=== PATIENT | male | born 1935 | race Caucasian/White ===

== ENCOUNTER → 2017-05-19 16:20 | Outpatient (CLI) | payer MEDICARE, SELFPAY ==
[2017-05-19 18:13] LABS: CPK Total, Creatine Kinase 134 U/L (39-308)
[2017-05-21 10:00] LABS: Myoglobin, Serum 59 ng/mL (28-72)
== END ==
PROVIDERS: Family Provider Family Medicine Geriatric Medicine; PCP Family Medicine Geriatric Medicine; Visit Provider Family Medicine Geriatric Medicine
DX: R07.9 Chest pain, unspecified (principal)
CPT/HCPCS: 36415; 82550; 83874; 84484

== ENCOUNTER → 2017-05-25 10:06 | Outpatient (CLI) | payer MEDICARE, SELFPAY ==
[2017-05-25 11:24] LABS: Absolute Neutrophil Count 3.4 X10^3/uL (2.0-7.7); Basophil# 0.08 X10^3/uL; Basophil% 1.5 % (0-1); Eosinophil# 0.14 X10^3/uL; Eosinophils% 2.7 % (0-5); Hematocrit 37.6 % (40-54); Hemoglobin 13.1 g/dl (13.0-16.5); Lymphocyte % 21.1 % (19-41); Mean Corp Hgb Conc 34.8 g/gl (32-36); Mean Corpuscular Hgb 32.4 pg (27.0-32.0); Mean Corpuscular Volume 93.1 fL (80-94); Mean Platelet Vol. 11.6 fl (6.2-12.0); Monocyte# 0.47 X10^3/uL; Neutrophil # 3.43 X10^3/uL (2.7-7.7); Neutrophil % 65.7 % (47-70); Platelet Count 172 K/mm3 (150-450); RBC Distribution Width CV 13.6 % (11.6-14.6); RBC Distribution Width SD 45.6 fl (35.1-43.9); Red Blood Count 4.04 M/mm3 (4.6-6.2); White Blood Count 5.2 K/mm3 (4.4-11.0)
[2017-05-25 11:37] LABS: POSITIVE COUNT NO; POSITIVE DIFFERENTIAL NO; POSITIVE MORPHOLOGY NO
[2017-05-25 11:48] LABS: Vitamin D,25 Hydroxy 22.7 ng/mL (19.95-100.01)
[2017-05-25 11:55] LABS: AST(SGOT) 42 U/L (15-37); Alanine Aminotransfer ALT/SGPT 42 U/L (16-61); Albumin, Serum 3.1 g/dL (3.2-5.0); Alkaline Phosphatase 111 U/L (45-117); Anion Gap 5 (5-15); BUN 11 mg/dL (7-18); BUN/Creat Ratio 9.7 RATIO (10-20); Calcium,Total 8.1 mg/dL (8.5-10.1); Chloride 110 mmol/L (98-107); Creatinine, Serum 1.13 mg/dL (0.70-1.30); EST Glomerular Filtration Rate 66 mL/min (>60); Est Glom Filt Rate - Afr Amer 80 mL/min (>60); Globulin 3.1 g/dL (2.2-4.2); Glucose 89 mg/dL (74-106); Potassium 3.6 mmol/L (3.5-5.1); Protein, Total 6.2 g/dL (6.4-8.2); Sodium Level 146 mmol/L (136-145); Thyroid Stim Hormone (TSH) 1.98 uIU/mL (0.358-3.74)
== END ==
PROVIDERS: Family Provider Family Medicine Geriatric Medicine; PCP Family Medicine Geriatric Medicine; Visit Provider Family Medicine Geriatric Medicine
DX: E55.9 Vitamin D deficiency, unspecified (principal); I10 Essential (primary) hypertension
CPT/HCPCS: 36415; 80053; 82306; 84443; 85025

== ENCOUNTER → 2017-06-19 09:22 | Outpatient (CLI) | payer MEDICARE, SELFPAY ==
[2017-06-19 12:13] LABS: Anion Gap 5 (5-15); BUN 12 mg/dL (7-18); Calcium,Total 7.8 mg/dL (8.5-10.1); Chloride 106 mmol/L (98-107); EST Glomerular Filtration Rate 62 mL/min (>60); Est Glom Filt Rate - Afr Amer 75 mL/min (>60); Glucose 91 mg/dL (74-106); Potassium 3.2 mmol/L (3.5-5.1); Sodium Level 145 mmol/L (136-145)
== END ==
PROVIDERS: Family Provider Family Medicine Geriatric Medicine; PCP Family Medicine Geriatric Medicine; Visit Provider Family Medicine Geriatric Medicine
DX: R60.9 Edema, unspecified (principal)
CPT/HCPCS: 36415; 80048

== ENCOUNTER → 2017-10-16 09:50 | Outpatient (CLI) | payer MEDICARE, SELFPAY ==
[2017-10-16 12:24] LABS: Absolute Lymphocyte Count 1.09 X10^3/ul (0.83-4.51); Basophil# 0.04 X10^3/uL; Basophil% 0.8 % (0-1); Eosinophil# 0.17 X10^3/uL; Eosinophils% 3.5 % (0-5); Hematocrit 38.5 % (40-54); Hemoglobin 12.7 g/dl (13.0-16.5); Lymphocyte # 1.09 X10^3/ul (4.0); Lymphocyte % 22.7 % (19-41); Mean Corpuscular Hgb 30.7 pg (27.0-32.0); Mean Platelet Vol. 11.4 fl (6.2-12.0); Monocyte# 0.49 X10^3/uL; Monocyte% 10.2 % (0-10); Neutrophil # 3.02 X10^3/uL (2.7-7.7); Neutrophil % 62.8 % (47-70); Platelet Count 177 K/mm3 (150-450); RBC Distribution Width CV 13.4 % (11.6-14.6); RBC Distribution Width SD 45.4 fl (35.1-43.9); Red Blood Count 4.14 M/mm3 (4.6-6.2); White Blood Count 4.8 K/mm3 (4.4-11.0)
[2017-10-16 12:38] LABS: POSITIVE COUNT NO; POSITIVE DIFFERENTIAL NO; POSITIVE MORPHOLOGY NO
[2017-10-16 12:55] LABS: Anion Gap 9 (5-15); BUN 13 mg/dL (7-18); BUN/Creat Ratio 9.8 RATIO (10-20); Calcium,Total 8.8 mg/dL (8.5-10.1); Chloride 105 mmol/L (98-107); Creatinine, Serum 1.33 mg/dL (0.70-1.30); EST Glomerular Filtration Rate 55 mL/min (>60); Est Glom Filt Rate - Afr Amer 67 mL/min (>60); Glucose 90 mg/dL (74-106); Potassium 3.8 mmol/L (3.5-5.1); Sodium Level 144 mmol/L (136-145)
[2017-10-16 12:57] LABS: BNP,B-Type NATRIURETIC PEPTIDE 163.4 pg/mL (0-100)
== END ==
PROVIDERS: Family Provider Family Medicine Geriatric Medicine; PCP Family Medicine Geriatric Medicine; Visit Provider Family Medicine Geriatric Medicine
DX: R06.02 Shortness of breath (principal)
CPT/HCPCS: 36415; 80048; 83880; 85025

== ENCOUNTER 2017-10-21 13:35 | Emergency (ER) | payer MEDICARE, SELFPAY ==
[2017-10-21 13:35] VITALS: BP 144/98; BP 163/116; PULSE 68; RESP 16; RESP 18; TEMP 36.8; O2SAT 96; O2SAT 98; BMI 23.2
--- NOTE | 2017-10-21 14:01 | EKG12_ITS ---
Test Reason : CP Blood Pressure : / mmHG Vent. Rate : 076 BPM Atrial Rate : 076 BPM P-R Int : 100 ms QRS Dur : 100 ms QT Int : 408 ms P-R-T Axes : -20 000 038 degrees QTc Int : 459 ms Sinus rhythm with short MN with Premature atrial complexes Otherwise normal ECG Confirmed by BOBO PALACIOS, TRISHA ([id number]), television news video editor SALLY OMALLEY ([id number]) on 10/23/2017 1:41:09 PM Referred By: FRANKO/LAMONT Confirmed By:TRISHA BROUSSARD MD
[2017-10-21 14:11] LABS: Absolute Lymphocyte Count 1.18 X10^3/ul (0.83-4.51); Absolute Neutrophil Count 4.2 X10^3/uL (2.0-7.7); Basophil# 0.03 X10^3/uL; Basophil% 0.5 % (0-1); Eosinophil# 0.07 X10^3/uL; Eosinophils% 1.2 % (0-5); Hematocrit 40.8 % (40-54); Hemoglobin 14.1 g/dl (13.0-16.5); Lymphocyte # 1.18 X10^3/ul (4.0); Lymphocyte % 19.6 % (19-41); Mean Corp Hgb Conc 34.6 g/gl (32-36); Mean Corpuscular Hgb 31.5 pg (27.0-32.0); Mean Corpuscular Volume 91.3 fL (80-94); Mean Platelet Vol. 11.1 fl (6.2-12.0); Monocyte# 0.49 X10^3/uL; Monocyte% 8.1 % (0-10); Neutrophil # 4.24 X10^3/uL (2.7-7.7); Neutrophil % 70.4 % (47-70); Platelet Count 185 K/mm3 (150-450); RBC Distribution Width CV 13.1 % (11.6-14.6); RBC Distribution Width SD 43.6 fl (35.1-43.9); Red Blood Count 4.47 M/mm3 (4.6-6.2)
--- NOTE | 2017-10-21 14:12 | RAD_ITS ---
STUDY: X-RAY CHEST REASON FOR EXAM: Male, 81 years old. Chest pain. TECHNIQUE: PA and lateral views of the chest. COMPARISON: Comparison is made with prior study dated April 10, 2014. FINDINGS: EKG electrodes are seen. Stable increased linear markings in the right midlung as well as in the lateral aspect of the right hemithorax suggestive of scarring. Stable mild scarring at the left lung base as well. Stable calcified granuloma in the left midlung. There is no demonstrated pleural abnormality. Normal size heart. Normal mediastinum and lona. Normal visualized pulmonary arteries. There is atherosclerotic calcification of the aortic arch with tortuosity. There are diffuse degenerative changes of the visualized thoracic spine. Normal visualized ribs, clavicles, and shoulders. A filter is seen within the inferior vena cava. RAD/Chest PA and Lateral IMPRESSION: Stable examination. Electronically Signed: Roman Joiner MD at 15:17 EDT Tel [phone], Service support ,
[2017-10-21 14:15] LABS: POSITIVE COUNT NO; POSITIVE DIFFERENTIAL NO; POSITIVE MORPHOLOGY NO
[2017-10-21 14:30] LABS: ALB/GLOB Ratio 1.1 RATIO (0.9-2.4); AST(SGOT) 29 U/L (15-37); Alanine Aminotransfer ALT/SGPT 26 U/L (16-61); Albumin, Serum 3.6 g/dL (3.2-5.0); Alkaline Phosphatase 140 U/L (45-117); Anion Gap 7 (5-15); BUN 14 mg/dL (7-18); BUN/Creat Ratio 8.9 RATIO (10-20); Calcium,Total 8.6 mg/dL (8.5-10.1); Chloride 102 mmol/L (98-107); Creatinine, Serum 1.57 mg/dL (0.70-1.30); EST Glomerular Filtration Rate 45 mL/min (>60); Est Glom Filt Rate - Afr Amer 55 mL/min (>60); Estimated Creatinine Clearance 38.15 ml/min; Globulin 3.3 g/dL (2.2-4.2); Glucose 116 mg/dL (74-106); Lipase 83 U/L (73-393); Potassium 3.2 mmol/L (3.5-5.1); Protein, Total 6.9 g/dL (6.4-8.2); Sodium Level 140 mmol/L (136-145)
[2017-10-21 14:43] VITALS: BP 156/109; PULSE 68; RESP 14; O2SAT 98
[2017-10-21 15:14] VITALS: BP 163/106; PULSE 53; RESP 15; O2SAT 97
--- NOTE | 2017-10-21 15:42 | ED.DCSUM_ITS ---
- ER Visit Summary Date of Service: 10/21/17 Chief Complaint: Chest pain History of Present Illness: The patient is a 81 M who states that yesterday afternoon he went to take a potassium chloride tablet while swallowing it developed a pressure in his chest. It has been constant since that time. He has not had drooling or difficulty swallowing. He describes it as a pressure. He states he had the same symptoms 1 month ago when he tried to swallow another potassium chloride tablet. He is to be taking potassium chloride as he has been placed on a diuretic. States he has a history of a hiatal hernia surgery that went bad resulting in significantly prolonged hospitalization and rehabilitation stay and surgical complications. I see that in the past he has had esophageal impactions. He has a history of hypertension high cholesterol. He does not take a daily aspirin. He is not a smoker. He does not have known coronary artery disease. Physical Examination: Afebrile vital signs are stable Gen: Well-nourished well-developed Head: Normocephalic atraumatic Eyes: Perrl EOMI ENT: TMs clear no rhinorrhea moist mucous membranes Neck: Supple no lymphadenopathy no JVD nontender CVS: Regular rate rhythm no murmurs normal S1-S2 Respiratory: No distress clear to auscultation bilaterally chest nontender Abdomen: Soft nontender nondistended normal bowel sounds no masses Back: Nontender Extremity: Nontender no edema skin tear left elbow Skin: Normal color no rash Neuro: alert orientated ?3 CN II-XII intact normal strength sensation reflexes gait cerebellar Psych: Normal affect normal mood Test Results: EKG shows a sinus rhythm with PAC at a rate of 76. Potassium 3.2. CBC normal. Troponin less than 0.015. Chest x-ray is negative. Emergency Department Course and Treatment: Patient's ROSALIA score is 1 for age greater than 65. Patient has had just short of 24 hours of constant discomfort with a negative EKG and negative troponin. Patient received a GI cocktail. The patient has had numerous evaluations in the past for esophageal impactions and esophageal strictures. Given that this came at time when he was attempting to swallow a large potassium chloride pill and happened 1 month ago under similar circumstances I believe this episode of chest pain not to be cardiac but rather esophageal in nature. I will switch him from the pills to the powdered form of potassium and encouraged him to follow-up with gastroenterology as he may need to have a dilatation again. Impression: 1. Chest pain 2. Hypokalemia This note was generated with [employer] dictation software. 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
[2017-10-21 16:02] VITALS: BP 152/100; PULSE 57; RESP 16; O2SAT 97
== END 2017-10-21 16:02 | disposition home or self-care (01) ==
PROVIDERS: Emergency Provider Emergency Medicine; Family Provider Family Medicine Geriatric Medicine; PCP Family Medicine Geriatric Medicine
DX: R07.89 Other chest pain (principal); E87.6 Hypokalemia; I49.1 Atrial premature depolarization; K21.9 Gastro-esophageal reflux disease without esophagitis; I10 Essential (primary) hypertension; E78.00 Pure hypercholesterolemia, unspecified; Z79.899 Other long term (current) drug therapy
CPT/HCPCS: 71046; 80053; 83690; 84484; 85025; 93005; 99285; A4216

== ENCOUNTER → 2017-10-29 11:48 | Outpatient (CLI) | payer MEDICARE, SELFPAY ==
[2017-10-29 12:49] LABS: Anion Gap 10 (5-15); BUN 36 mg/dL (7-18); BUN/Creat Ratio 15.8 RATIO (10-20); Calcium,Total 8.5 mg/dL (8.5-10.1); Chloride 107 mmol/L (98-107); Creatinine, Serum 2.28 mg/dL (0.70-1.30); EST Glomerular Filtration Rate 30 mL/min (>60); Est Glom Filt Rate - Afr Amer 36 mL/min (>60); Glucose 92 mg/dL (74-106); Potassium 3.9 mmol/L (3.5-5.1); Sodium Level 143 mmol/L (136-145)
== END ==
PROVIDERS: Family Provider Family Medicine Geriatric Medicine; PCP Family Medicine Geriatric Medicine; Visit Provider Family Medicine Geriatric Medicine
DX: E87.6 Hypokalemia (principal)
CPT/HCPCS: 36415; 80048

== ENCOUNTER → 2017-10-29 13:41 | Outpatient (CLI) | payer MEDICARE, SELFPAY ==
--- NOTE | 2017-10-29 13:49 | ECHOD_ITS ---
Reason For Study: SOB Procedure This was a 2D Doppler, Color Flow transthoracic echocardiogram. The study was technically difficult. Exam performed in department. Left Ventricle Normal LV size. Sigmoid septum. Left ventricular systolic function is normal. The estimated ejection fraction is 55 %. Diastolic function: considered indeterminate. No regional wall motion abnormalities noted. Right Ventricle Normal RV size. Normal systolic function. Atria The left atrium is mildly enlarged. Normal right atrium. No doppler evidence for ASD. Mitral Valve There is no mitral annular calcification. Normal mitral valve. Trivial mitral valve insufficiency. Tricuspid Valve Normal tricuspid valve. Trivial tricuspid valve insufficiency. Right ventricular systolic pressure estimated to be 24 mmHg. Aortic Valve Trisinus/trileaflet aortic valve. Mild focal aortic valve calcification. Trivial aortic valve insufficiency. Pulmonic Valve The pulmonic valve is not well visualized. Trivial pulmonic valve insufficiency. Great Vessels Normal sized aortic root. Pericardium/Pleural No pericardial effusion. MMode/2D Measurements & Calculations LVIDd: 4.6 cm IVSd: 1.3 cm Ao root diam: 3.4 cm LVIDs: 3.0 cm LVPWd: 1.00 cm LA dimension: 4.5 cm RVDd: 2.5 cm FS: 34.3 % LAV(MOD-bp): 58.6 ml EDV(MOD-sp4): 67.8 ml EDV(MOD-sp2): 52.1 ml LAV(MOD-bp) Indexed: 31.0 ml/m2 ESV(MOD-sp4): 34.0 ml EF(MOD-sp2): 43.4 % LAV(MOD-sp2): 59.4 ml EF(MOD-sp4): 49.9 % LAV(MOD-sp4): 54.7 ml SV(MOD-sp4): 33.8 ml SV(MOD-sp2): 22.6 ml LA A4 area: 20.0 cm2 RA A4 area: 14.3 cm2 Doppler Measurements & Calculations MV E max reji: 44.9 cm/sec Lat Peak E' Reji: 10.5 cm/sec Med Peak E' Reji: 3.6 cm/sec MV A max reji: 68.9 cm/sec E/E' lat: 4.3 E/E' med: 12.4 MV E/A: 0.65 Ao V2 max: 138.1 cm/sec LV V1 max: 81.2 cm/sec PA V2 max: 86.5 cm/sec Ao max P.6 mmHg LV V1 max P.6 mmHg PI end-d reji: 121.6 cm/sec TR max reji: 226.3 cm/sec TR max P.6 mmHg Interpretation Summary The study was technically difficult. Left ventricular systolic function is normal. The estimated ejection fraction is 55 %. Sigmoid septum. The left atrium is mildly enlarged. Trivial mitral valve insufficiency. Trivial tricuspid valve insufficiency. Mild focal aortic valve calcification. Trivial aortic valve insufficiency. Trivial pulmonic valve insufficiency. Right ventricular systolic pressure estimated to be 24 mmHg. Diastolic function: considered indeterminate. Ordering Physician: Kieran Gary Referring Physician: Kieran Gary Chi Performed By: Silvia Chavarria, OMER, RVT
== END ==
PROVIDERS: Family Provider Family Medicine Geriatric Medicine; PCP Family Medicine Geriatric Medicine; Visit Provider Family Medicine Geriatric Medicine
DX: R06.02 Shortness of breath (principal); E87.6 Hypokalemia
CPT/HCPCS: 36415; 80048; 93306

== ENCOUNTER → 2017-11-23 10:29 | Outpatient (CLI) | payer MEDICARE, SELFPAY ==
[2017-11-23 12:02] LABS: Absolute Lymphocyte Count 1.26 X10^3/ul (0.83-4.51); Absolute Neutrophil Count 5.8 X10^3/uL (2.0-7.7); Basophil# 0.04 X10^3/uL; Basophil% 0.5 % (0-1); Eosinophil# 0.24 X10^3/uL; Hematocrit 36.3 % (40-54); Hemoglobin 12.3 g/dl (13.0-16.5); Lymphocyte # 1.26 X10^3/ul (4.0); Lymphocyte % 15.7 % (19-41); Mean Corp Hgb Conc 33.9 g/gl (32-36); Mean Corpuscular Hgb 31.1 pg (27.0-32.0); Mean Corpuscular Volume 91.9 fL (80-94); Mean Platelet Vol. 11.8 fl (6.2-12.0); Monocyte# 0.67 X10^3/uL; Monocyte% 8.4 % (0-10); Neutrophil # 5.79 X10^3/uL (2.7-7.7); Neutrophil % 72.3 % (47-70); Platelet Count 179 K/mm3 (150-450); RBC Distribution Width CV 13.8 % (11.6-14.6); RBC Distribution Width SD 45.4 fl (35.1-43.9); Red Blood Count 3.95 M/mm3 (4.6-6.2)
[2017-11-23 12:20] LABS: POSITIVE COUNT NO; POSITIVE DIFFERENTIAL NO; POSITIVE MORPHOLOGY NO
[2017-11-23 12:21] LABS: Vitamin D,25 Hydroxy 28.9 ng/mL (29.95-100.01)
[2017-11-23 12:32] LABS: AST(SGOT) 30 U/L (15-37); Alanine Aminotransfer ALT/SGPT 30 U/L (16-61); Albumin, Serum 3.3 g/dL (3.2-5.0); Alkaline Phosphatase 109 U/L (45-117); Anion Gap 11 (5-15); BUN 30 mg/dL (7-18); BUN/Creat Ratio 10.7 RATIO (10-20); Calcium,Total 8.3 mg/dL (8.5-10.1); Chloride 114 mmol/L (98-107); EST Glomerular Filtration Rate 23 mL/min (>60); Est Glom Filt Rate - Afr Amer 28 mL/min (>60); Globulin 3.2 g/dL (2.2-4.2); Glucose 81 mg/dL (74-106); Potassium 3.6 mmol/L (3.5-5.1); Protein, Total 6.5 g/dL (6.4-8.2); Sodium Level 147 mmol/L (136-145); Thyroid Stim Hormone (TSH) 2.54 uIU/mL (0.358-3.74)
== END ==
PROVIDERS: Family Provider Family Medicine Geriatric Medicine; PCP Family Medicine Geriatric Medicine; Visit Provider Family Medicine Geriatric Medicine
DX: E55.9 Vitamin D deficiency, unspecified (principal); I10 Essential (primary) hypertension
CPT/HCPCS: 36415; 80053; 82306; 84443; 85025

== ENCOUNTER → 2017-11-26 10:41 | Outpatient (CLI) | payer MEDICARE, SELFPAY ==
[2017-11-26 13:21] LABS: Protein, Urine (Random) 45.2 mg/dL (<11.9); Protein:Creat Ratio 335 mg/g CRE (0-200)
== END ==
PROVIDERS: Family Provider Family Medicine Geriatric Medicine; PCP Family Medicine Geriatric Medicine; Visit Provider Family Medicine Geriatric Medicine
DX: N17.9 Acute kidney failure, unspecified (principal)
CPT/HCPCS: 82570; 84156

== ENCOUNTER → 2017-11-30 11:32 | Outpatient (CLI) | payer MEDICARE, SELFPAY ==
[2017-11-30 12:59] LABS: Albumin, Serum 3.3 g/dL (3.2-5.0); BUN 29 mg/dL (7-18); BUN/Creat Ratio 10.2 RATIO (10-20); Calcium,Total 8.4 mg/dL (8.5-10.1); Chloride 111 mmol/L (98-107); Creatinine, Serum 2.84 mg/dL (0.70-1.30); EST Glomerular Filtration Rate 23 mL/min (>60); Est Glom Filt Rate - Afr Amer 28 mL/min (>60); Glucose 106 mg/dL (74-106); Phosphorus 3.5 mg/dL (2.5-4.9); Potassium 3.5 mmol/L (3.5-5.1); Sodium Level 147 mmol/L (136-145)
[2017-11-30 13:05] LABS: PTHIN 63.6 pg/mL (18.4-80.1)
== END ==
PROVIDERS: Family Provider Family Medicine Geriatric Medicine; PCP Family Medicine Geriatric Medicine; Visit Provider Internal Medicine Nephrology
DX: N18.3 Chronic kidney disease, stage 3 (moderate) (principal); N17.9 Acute kidney failure, unspecified
CPT/HCPCS: 36415; 76770; 80069; 83970

== ENCOUNTER → 2018-01-04 13:56 | Outpatient (CLI) | payer MEDICARE, SELFPAY ==
[2018-01-04 15:25] LABS: Albumin, Serum 3.2 g/dL (3.2-5.0); BUN 44 mg/dL (7-18); BUN/Creat Ratio 12.4 RATIO (10-20); Calcium,Total 7.9 mg/dL (8.5-10.1); Chloride 105 mmol/L (98-107); Creatinine, Serum 3.56 mg/dL (0.70-1.30); EST Glomerular Filtration Rate 18 mL/min (>60); Est Glom Filt Rate - Afr Amer 21 mL/min (>60); Glucose 116 mg/dL (74-106); Phosphorus 3.1 mg/dL (2.5-4.9); Potassium 3.4 mmol/L (3.5-5.1); Sodium Level 141 mmol/L (136-145)
[2018-01-04 15:31] LABS: PTHIN 126.2 pg/mL (18.4-80.1)
== END ==
PROVIDERS: Family Provider Family Medicine Geriatric Medicine; PCP Family Medicine Geriatric Medicine; Referring Provider Internal Medicine Nephrology; Visit Provider Internal Medicine Nephrology
DX: N18.3 Chronic kidney disease, stage 3 (moderate) (principal)
CPT/HCPCS: 36415; 80069; 83970

== ENCOUNTER → 2018-01-20 11:11 | Outpatient (CLI) | payer MEDICARE, SELFPAY ==
[2018-01-20 12:11] LABS: Albumin, Serum 3.4 g/dL (3.2-5.0); BUN 27 mg/dL (7-18); BUN/Creat Ratio 11.2 RATIO (10-20); Calcium,Total 8.5 mg/dL (8.5-10.1); Chloride 111 mmol/L (98-107); Creatinine, Serum 2.42 mg/dL (0.70-1.30); EST Glomerular Filtration Rate 28 mL/min (>60); Est Glom Filt Rate - Afr Amer 33 mL/min (>60); Glucose 176 mg/dL (74-106); Phosphorus 3.5 mg/dL (2.5-4.9); Potassium 4.4 mmol/L (3.5-5.1); Sodium Level 141 mmol/L (136-145)
[2018-01-20 12:19] LABS: PTHIN 56.5 pg/mL (18.4-80.1)
== END ==
PROVIDERS: Family Provider Family Medicine Geriatric Medicine; PCP Family Medicine Geriatric Medicine; Referring Provider Internal Medicine Nephrology; Visit Provider Internal Medicine Nephrology
DX: N18.3 Chronic kidney disease, stage 3 (moderate) (principal)
CPT/HCPCS: 36415; 80069; 83970

== ENCOUNTER → 2018-03-01 13:26 | Outpatient (CLI) | payer MEDICARE, SELFPAY ==
[2018-03-01 16:35] LABS: Albumin, Serum 3.2 g/dL (3.2-5.0); BUN 32 mg/dL (7-18); Calcium,Total 8.3 mg/dL (8.5-10.1); Chloride 108 mmol/L (98-107); Creatinine, Serum 2.46 mg/dL (0.70-1.30); EST Glomerular Filtration Rate 27 mL/min (>60); Est Glom Filt Rate - Afr Amer 33 mL/min (>60); Glucose 83 mg/dL (74-106); Phosphorus 3.4 mg/dL (2.5-4.9); Potassium 3.8 mmol/L (3.5-5.1); Sodium Level 143 mmol/L (136-145)
== END ==
PROVIDERS: Family Provider Family Medicine Geriatric Medicine; PCP Family Medicine Geriatric Medicine; Referring Provider Internal Medicine Nephrology; Visit Provider Internal Medicine Nephrology
DX: N17.9 Acute kidney failure, unspecified (principal)
CPT/HCPCS: 36415; 80069

== ENCOUNTER → 2018-03-24 12:11 | Outpatient (CLI) | payer MEDICARE, SELFPAY ==
--- OUTSIDE RECORDS SUMMARY | 2018-06-25 17:27 | XMS RPT_ITS ---
:1935 Author Organization OHIP Support Name Relationship Address Phone R Unavailable Unavailable Unavailable YOUNGER, IRIS Unavailable [address] + [place] [address] R Unavailable Unavailable Unavailable YOUNGER, IRIS Unavailable [address] + [place] [address] R Unavailable Unavailable Unavailable YOUNGER, IRIS Unavailable [address] + [place] [address] R Unavailable Unavailable Unavailable YOUNGER, IRIS Unavailable [address] + [place] [address] R Unavailable Unavailable Unavailable YOUNGER, IRIS Unavailable [address] + [place] [address] R Unavailable Unavailable Unavailable YOUNGER, IRIS Unavailable [address] + [place] [address] R Unavailable Unavailable Unavailable YOUNGER, IRIS Unavailable [address] + [place] [address] R Unavailable Unavailable Unavailable YOUNGER, IRIS Unavailable [address] + [place] [address] R Unavailable Unavailable Unavailable YOUNGER, IRIS Unavailable [address] + [place] [address] R Unavailable Unavailable Unavailable YOUNGER, IRIS Unavailable [address] + [place] [address] R Unavailable Unavailable Unavailable YOUNGER, IRIS Unavailable [address] + [place] [address] R Unavailable Unavailable Unavailable YOUNGER, IRIS Unavailable [address] + [place] [address] R Unavailable Unavailable Unavailable YOUNGER, IRIS Unavailable [address] + [place] [address] R Unavailable Unavailable Unavailable YOUNGER, IRIS Unavailable [address] + [place] [address] R Unavailable Unavailable Unavailable YOUNGER, IRIS Unavailable [address] + [place] [address] R Unavailable Unavailable Unavailable YOUNGER, IRIS Unavailable [address] + [place] [address] R Unavailable Unavailable Unavailable YOUNGER, IRIS Unavailable [address] + [place] [address] R Unavailable Unavailable Unavailable YOUNGER, IRIS Unavailable [address] + [place] [address] Care Team Providers Name Role Phone PATRIC, PHILIPPE Monge Attending Unavailable SHINE DURAN Referring Unavailable Abdirahman, Kieran Chi Attending Unavailable Abdirahman, Kieran Chi Referring Unavailable Abdirahman, Kieran Chi Primary Care Unavailable Abdirahman, Kieran Chi Attending Unavailable Abdirahman, Kieran Chi Referring Unavailable Abdirahman, Kieran Chi Primary Care Unavailable Abdirahman, Kieran Chi Attending Unavailable Abdirahman, Kieran Chi Primary Care Unavailable Abdirahman, Kieran Chi Attending Unavailable Abdirahman, Kieran Chi Referring Unavailable Abdirahman, Kieran Chi Primary Care Unavailable Abdirahman, Kieran Chi Attending Unavailable Abdirahman, Kieran Chi Primary Care Unavailable Abdirahman, Kieran Chi Attending Unavailable Abdirahman, Kieran Chi Primary Care Unavailable Abdirahman, Kieran Chi Attending Unavailable Abdirahman, Kieran Chi Primary Care Unavailable Abdirahman, Kieran Chi Attending Unavailable Abdirahman, Kieran Chi Primary Care Unavailable Abdirahman, Kieran Chi Primary Care Unavailable Adolph Armas Attending Unavailable Abdirahman, Kieran Chi Attending Unavailable Abdirahman, Kieran Chi Referring Unavailable Abdirahman, Kieran Chi Primary Care Unavailable Abdirahman, Kieran Chi Attending Unavailable Abdirahman, Kieran Chi Primary Care Unavailable Abdirahman, Kieran Chi Attending Unavailable Abdirahman, Kieran Chi Primary Care Unavailable Guido, Karlee Attending Unavailable Guido, Karlee Referring Unavailable Abdirahman, Kieran Chi Primary Care Unavailable Guido, Karlee Attending Unavailable Abdirahman, Kieran Chi Primary Care Unavailable Sandoval Pleitez Attending Unavailable Guido, Karlee Attending Unavailable Abdirahman, Kieran Chi Primary Care Unavailable Guido, Karlee Referring Unavailable Guido, Karlee Attending Unavailable Abdirahman, Kieran Chi Primary Care Unavailable Guido, Karlee Referring Unavailable Guido, Karlee Attending Unavailable Abdirahman, Kieran Chi Primary Care Unavailable Guido, Karlee Referring Unavailable PROBLEMS PROBLEMS DATE TYPE CONDITION / CODE ATTENDING STATUS SOURCE 03/24/2018 Unknown R68.83 - Chills Abdirahman, Kieran Chi Active [facility] (without fever) / Community R68.83(ICD-10) Hospital Repository 01/20/2018 Unknown N18.3 - Chronic Karlee Lora Active [facility] kidney disease, Community stage 3 Hospital (moderate) / Repository N18.3(ICD-10) 11/30/2017 Unknown N17.9 - Acute Karlee Lora Active [place] kidney failure, Community unspecified / Hospital N17.9(ICD-10) Repository 11/27/2017 Unknown R06.02 - MoodispaSandoval villagran Active [facility] Shortness of Community breath / Hospital R06.02(ICD-10) Repository 08/13/2017 Active Esophageal PATRIC, 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 / [facility] K22.2(ICD-10) Repository 06/19/2017 Unknown R60.9 - Edema, Abdirahman, Kieran Chi Active [facility] unspecified / Community R60.9(ICD-10) Hospital Repository 05/25/2017 Unknown E55.9 - Vitamin D Abdirahman, Kieran Chi Active [place] deficiency, Community unspecified / Hospital E55.9(ICD-10) Repository 05/20/2017 Unknown R07.9 - Chest Abdirahman, Kieran Chi Active [place] pain, unspecified Community / R07.9(ICD-10) Hospital Repository PROCEDURES PROCEDURES No Procedure Records FoundRESULTS RESULTS Observed: 04/20/2018 Status: F Source: [facility] RESPIRATORY PANEL 2:45 PM [facility] MOLECULAR REPOSITORY RP PANEL ADENOVIRUS Not Detected HUMAN METAPHNEUMO Not Detected INFLUENZA A Not Detected INFLUENZA A (SUBTYPE H1) Not Detected INFLUENZA A (SUBTYPE H3) Not Detected INFLUENZA B Not Detected PARAINFLUENZA 1 Not Detected PARAINFLUENZA 2 Not Detected PARAINFLUENZA 3 Not Detected PARAINFLUENZA 4 Not Detected RHINOVIRUS Not Detected RSV A Not Detected RSV B Not Detected NAAT METHOD Testing was performed using nucleic acid amplification Performed By: #### M100.638 #### [facility] [place], [address] Observed: 03/24/2018 Status: F Source: [facility] RESPIRATORY PANEL 12:21 PM [facility] REPOSITORY RP PANEL Normal Reference Range = Not Detected RESULTS CALLED TO DR FERNANDES NURSE LINE 03/24/18 8737 Silvia Gamez. Copy of report sent to Infection Control Printer MS#[id number] 03/24/18 3869 BLUCAS. 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 [place], [place], [address] RENAL PROFILE Collected: 03/01/2018 Status: F Source: [facility] 1:32 PM [facility] REPOSITORY TYPE CODE TESTS RESULT OUT OF RANGE REFERENCE UNITS LAB L501.0100 74-106 mg/dL Normal GLU 83 Result Comment: Please note revised GLUCOSE reference range effective 2017. LAB L501.1000 7-18 mg/dL High BUN 32 LAB L501.1100 0.70-1.30 mg/dL High CREAT,SERUM 2.46 Result Comment: The validity of the calculated GFR AND GFRAA in patients over 70 years has not been determined. Clinical correlation is essential. LAB L501.1110 >60 mL/min Low EST GFR 27 Result Comment: Non- GFR Calc LAB L501.1115 >60 mL/min Low EST GFR - AA 33 Result Comment: GFR Calc LAB L501.1300 10-20 RATIO Normal BUN/CRE 13.0 LAB L501.1800 3.2-5.0 g/dL Normal ALB 3.2 LAB L501.2200 8.5-10.1 mg/dL Low CA 8.3 LAB L501.2300 2.5-4.9 mg/dL Normal PHOS 3.4 LAB L501.5300 136-145 mmol/L NA Normal 143 LAB L501.5600 3.5-5.1 mmol/L K Normal 3.8 LAB L501.5900 98-107 mmol/L High CL 108 LAB L501.6100 21.0-32.0 mmol/L Normal CO2 24.0 Performed By: #### L500.3600 #### [facility] [address] [place], [place], [address] RENAL PROFILE Collected: 01/20/2018 Status: F Source: [place] 11:16 AM [facility] REPOSITORY TYPE CODE TESTS RESULT OUT OF RANGE REFERENCE UNITS LAB L501.0100 74-106 mg/dL High GLU 176 Result Comment: Fasting Glucose result greater than or equal to 126 mg/dL suggests DIABETES MELLITUS per A.D.A. criteria. Please note revised GLUCOSE reference range effective 2017. LAB L501.1000 7-18 mg/dL High BUN 27 LAB L501.1100 0.70-1.30 mg/dL High CREAT,SERUM 2.42 Result Comment: The validity of the calculated GFR AND GFRAA in patients over 70 years has not been determined. Clinical correlation is essential. LAB L501.1110 >60 mL/min Low EST GFR 28 Result Comment: Non- GFR Calc LAB L501.1115 >60 mL/min Low EST GFR - AA 33 Result Comment: GFR Calc LAB L501.1300 10-20 RATIO Normal BUN/CRE 11.2 LAB L501.1800 3.2-5.0 g/dL Normal ALB 3.4 LAB L501.2200 8.5-10.1 mg/dL CA Normal 8.5 LAB L501.2300 2.5-4.9 mg/dL Normal PHOS 3.5 LAB L501.5300 136-145 mmol/L NA Normal 141 LAB L501.5600 3.5-5.1 mmol/L K Normal 4.4 LAB L501.5900 98-107 mmol/L High CL 111 LAB L501.6100 21.0-32.0 mmol/L Normal CO2 25.0 Performed By: #### L500.3600 #### [facility] [address] [place], [place], [address] PTHIN Collected: 01/20/2018 Status: F Source: [place] 11:16 AM [facility] REPOSITORY TYPE CODE TESTS RESULT OUT OF RANGE REFERENCE UNITS LAB L509.1000 18.4-80.1 pg/mL Normal PTHIN 56.5 Performed By: #### L509.1000 #### [facility] [address] [place], [address] RENAL PROFILE Collected: 01/04/2018 Status: F Source: [place] 2:01 PM [facility] REPOSITORY TYPE CODE TESTS RESULT OUT OF RANGE REFERENCE UNITS LAB L501.0100 74-106 mg/dL High GLU 116 Result Comment: Fasting Glucose result from 100 to 125 mg/dL suggests IMPAIRED HOMEOSTASIS per A.D.A. criteria. Please note revised GLUCOSE reference range effective 2017. LAB L501.1000 7-18 mg/dL High BUN 44 LAB L501.1100 0.70-1.30 mg/dL High CREAT,SERUM 3.56 Result Comment: The validity of the calculated GFR AND GFRAA in patients over 70 years has not been determined. Clinical correlation is essential. LAB L501.1110 >60 mL/min Low EST GFR 18 Result Comment: Non- GFR Calc LAB L501.1115 >60 mL/min Low EST GFR - AA 21 Result Comment: GFR Calc LAB L501.1300 10-20 RATIO Normal BUN/CRE 12.4 LAB L501.1800 3.2-5.0 g/dL Normal ALB 3.2 LAB L501.2200 8.5-10.1 mg/dL Low CA 7.9 LAB L501.2300 2.5-4.9 mg/dL Normal PHOS 3.1 LAB L501.5300 136-145 mmol/L NA Normal 141 LAB L501.5600 3.5-5.1 mmol/L Low K 3.4 LAB L501.5900 98-107 mmol/L CL Normal 105 LAB L501.6100 21.0-32.0 mmol/L Normal CO2 27.0 Performed By: #### L500.3600 #### [facility] [address] [place], [place], [address] PTHIN Collected: 01/04/2018 Status: F Source: [place] 2:01 PM [facility] REPOSITORY TYPE CODE TESTS RESULT OUT OF RANGE REFERENCE UNITS LAB L509.1000 18.4-80.1 pg/mL High PTHIN 126.2 Performed By: #### L509.1000 #### [facility] [address] [place], [address] RENAL PROFILE Collected: 11/30/2017 Status: F Source: [facility] 12:15 PM [facility] REPOSITORY TYPE CODE TESTS RESULT OUT OF RANGE REFERENCE UNITS LAB L501.0100 74-106 mg/dL Normal GLU 106 Result Comment: Fasting Glucose result from 100 to 125 mg/dL suggests IMPAIRED HOMEOSTASIS per A.D.A. criteria. Please note revised GLUCOSE reference range effective 2017. LAB L501.1000 7-18 mg/dL High BUN 29 LAB L501.1100 0.70-1.30 mg/dL High CREAT,SERUM 2.84 Result Comment: The validity of the calculated GFR AND GFRAA in patients over 70 years has not been determined. Clinical correlation is essential. LAB L501.1110 >60 mL/min Low EST GFR 23 Result Comment: Non- GFR Calc LAB L501.1115 >60 mL/min Low EST GFR - AA 28 Result Comment: GFR Calc LAB L501.1300 10-20 RATIO Normal BUN/CRE 10.2 LAB L501.1800 3.2-5.0 g/dL Normal ALB 3.3 LAB L501.2200 8.5-10.1 mg/dL Low CA 8.4 LAB L501.2300 2.5-4.9 mg/dL Normal PHOS 3.5 LAB L501.5300 136-145 mmol/L High NA 147 LAB L501.5600 3.5-5.1 mmol/L K Normal 3.5 LAB L501.5900 98-107 mmol/L High CL 111 LAB L501.6100 21.0-32.0 mmol/L Normal CO2 22.0 Performed By: #### L500.3600 #### [facility] [address] [place], [address] PTHIN Collected: 11/30/2017 Status: F Source: [facility] 12:15 PM [facility] REPOSITORY TYPE CODE TESTS RESULT OUT OF RANGE REFERENCE UNITS LAB L509.1000 18.4-80.1 pg/mL Normal PTHIN 63.6 Performed By: #### L509.1000 #### [facility] [address] [place], [address] KIDNEY AND BLADDER Observed: 11/30/2017 Status: F Source: [facility] 11:43 AM [facility] REPOSITORY [facility] [place] [address] Kidney and Bladder MR#: [id number] Acct: [id number] Name: LUCIEN YOUNGER I Rep #: [id number] : 1935 M 82 From: Lito Ribeiro DO PCP: Abdirahman PALACIOS,Kieran Meehan Status: REG CLI Study: Kidney and Bladder Date of Exam: 11/30/17 Exam# [id number] Ordering Dr: Karlee Lora DO STUDY: RENAL ULTRASOUND - COMPLETE REASON FOR EXAM: Male, 82 years old. Acute renal failure. TECHNIQUE: Ultrasound evaluation of the kidneys was performed with real-time and static elizalde-scale imaging. COMPARISON: None. FINDINGS: RIGHT KIDNEY: Normal location of the right kidney, which is normal in size. The right kidney measures 10.6 cm. There is a normal cortex of the right kidney. The renal cortex measures 1.2 cm. There is no right renal mass or cyst. There are no right renal calculi. There is no right hydronephrosis. DISTAL RIGHT URETER: There is non-visualization of the distal right ureter. There is no demonstrated right ureterovesical junction calculus. There is a visualized right ureteral jet. LEFT KIDNEY: Normal location of the left kidney, which is normal in size. The left kidney measures 11 point cm. There is a normal cortex of the left kidney. The renal cortex measures 1. cm. There is a 2.4 x 2.5 x 2.2 cm cyst lower pole. There are no left renal calculi. There is no left hydronephrosis. DISTAL LEFT URETER: There is non-visualization of the distal left ureter. There is no demonstrated left ureterovesical junction calculus. There is a visualized left ureteral jet. BLADDER: The fourth distended urinary bladder has a volume of 37 ml. There is a normal wall thickness of the distended urinary bladder. There is no demonstrated mass within the urinary bladder. There are no demonstrated bladder calculi. The prostate is enlarged with a volume of 116 mL. US/Kidney and Bladder IMPRESSION: 1. Left renal cyst. 2. Normal right kidney and urinary bladder. 3. Enlarged prostate. Electronically Signed: Lito Ribeiro DO at 23:57 EDT Tel [phone], Service support , CC: Karlee Lora DO; Kieran Fernandes MD Poultry Trimmer: Signed PROTEIN+CREATININE Collected: Status: F [facility] 11/26/2017 10:42 AM [facility] REPOSITORY TYPE CODE TESTS RESULT OUT OF RANGE REFERENCE UNITS LAB L501.1200 NO RANGE EST. mg/dL Normal UR CREAT 135.00 LAB L501.1930 <11.9 mg/dL High 45.2 PROTEIN,UR.R AN. LAB L501.1940 0-200 mg/g CRE High PROT:CRE 335 RATIO Performed By: #### L501.0900 #### [facility] [address] [place], [address] CBC W/DIFF, AUTOMATED Collected: 11/23/2017 Status: F Source: [place] 10:32 AM [facility] REPOSITORY TYPE CODE TESTS RESULT OUT OF RANGE REFERENCE UNITS LAB L100.1000 4.4-11.0 K/mm3 Normal WBC 8.0 LAB L100.1200 4.6-6.2 M/mm3 Low RBC 3.95 LAB L100.1300 13.0-16.5 g/dl Low HGB 12.3 LAB L100.1400 40-54 % Low HCT 36.3 LAB L100.1500 80-94 fL Normal MCV 91.9 LAB L100.1600 27.0-32.0 pg Normal MCH 31.1 LAB L100.1700 32-36 g/gl Normal MCHC 33.9 LAB L100.1810 11.6-14.6 % Normal RDW CV 13.8 LAB L100.1820 35.1-43.9 fl High RDW SD 45.4 LAB L100.1900 150-450 K/mm3 Normal PLT 179 LAB L100.2000 6.2-12.0 fl Normal MPV 11.8 LAB L100.2100 47-70 % High NEUT% 72.3 LAB L100.2200 19-41 % Low LY% 15.7 LAB L100.2300 0-10 % Normal MONO% 8.4 LAB L100.2400 0-5 % Normal EO% 3.0 LAB L100.2500 0-1 % Normal BASO% 0.5 LAB L100.2550 0.0-0.9 % Normal IM GRAN % 0.100 Result Comment: IG% - Immature Granulocytes (promyelocytes, myelocytes and metamyelocytes) > 1% indicates that a LEFT SHIFT is Present. LAB L100.2620 2.0-7.7 X10 3/uL Normal Absolute Neut 5.8 LAB L100.2720 0.83-4.51 X10 3/ul Normal Absolute Lymph 1.26 Performed By: #### L100.0100 #### [facility] [address] [place], [place], [address] VITAMIN D,25 HYDROXY Collected: 11/23/2017 Status: F Source: [facility] 10:32 AM [facility] REPOSITORY TYPE CODE TESTS RESULT OUT OF REFERENCE UNITS RANGE LAB L506.1000 29.95-100.01 ng/mL Low Vitamin D 28.9 25-OH Result Comment: Vitamin D 25(OH) Status Range Deficiency <20 ng/mL (50nmol/L) Insuffciency 20 - 30 ng/mL (50 - 75 nmol/L) Sufficiency 30 - 100 ng/mL (75 - 250 nmol/L) Toxicity >100 ng/mL (>250 nmol/L) Performed By: #### L506.1000 #### [facility] [address] [place], [place], [address] COMPREHENSIVE METABOLIC Collected: 11/23/2017 Status: F Source: [facility] 10:32 AM [facility] REPOSITORY TYPE CODE TESTS RESULT OUT OF RANGE REFERENCE UNITS LAB L501.0100 74-106 mg/dL Normal GLU 81 Result Comment: Please note revised GLUCOSE reference range effective 2017. LAB L501.1000 7-18 mg/dL High BUN 30 LAB L501.1100 0.70-1.30 mg/dL High CREAT,SERUM 2.80 Result Comment: The validity of the calculated GFR AND GFRAA in patients over 70 years has not been determined. Clinical correlation is essential. LAB L501.1110 >60 mL/min Low EST GFR 23 Result Comment: Non- GFR Calc LAB L501.1115 >60 mL/min Low EST GFR - AA 28 Result Comment: GFR Calc LAB L501.1300 10-20 RATIO Normal BUN/CRE 10.7 LAB L501.1500 6.4-8.2 g/dL T Normal PROT 6.5 LAB L501.1800 3.2-5.0 g/dL Normal ALB 3.3 LAB L501.1950 2.2-4.2 g/dL Normal GLOB 3.2 LAB L501.2000 0.9-2.4 RATIO Normal A/G 1.0 LAB L501.2200 8.5-10.1 mg/dL Low CA 8.3 LAB L501.4100 15-37 U/L Normal AST 30 LAB L501.4305 45-117 U/L Normal ALK P 109 LAB L501.4405 16-61 U/L Normal ALT 30 LAB L501.4600 0.20-1.00 mg/dL T Normal BILI 0.50 LAB L501.5300 136-145 mmol/L High NA 147 LAB L501.5600 3.5-5.1 mmol/L K Normal 3.6 LAB L501.5900 98-107 mmol/L High CL 114 LAB L501.6100 21.0-32.0 mmol/L Normal CO2 22.0 LAB L501.6200 5-15 Normal GAP 11 Performed By: #### L500.4050, L501.9520 #### [facility] [address] [place], [place], [address] THYROID STIM HORMONE Collected: 11/23/2017 Status: F Source: [place] ([facility]) 10:32 AM [facility] REPOSITORY TYPE CODE TESTS RESULT OUT OF RANGE REFERENCE UNITS LAB L501.9520 0.358-3.74 uIU/mL Normal TSH 2.54 Performed By: #### L500.4050, L501.9520 #### [facility] [address] [place], [place], [address] ECHOCARDIOGRAM COMPLETE Observed: 10/29/2017 Status: F Source: [place] 6:08 PM [facility] REPOSITORY [facility] Cardiovascular [place] [place] [address] Echo Complete 10/29/17 1350 MR#: [id number] Acct: [id number] Name: LUCIEN YOUNGER I Rep #: [id number] : 1935 81 From: Sandoval Pleitez MD Attending Dr: Abdirahman PALACIOS,Kieran Meehan Status: REG CLI Ordering Dr: Kieran Fernandes MD Date: 10/29/17 Location: [facility] Sex: M C Admitted: Reason For Study: SOB Procedure This was a 2D Doppler, Color Flow transthoracic echocardiogram. The study was technically difficult. Exam performed in department. Left Ventricle Normal LV size. Sigmoid septum. Left ventricular systolic function is normal. The estimated ejection fraction is 55 %. Diastolic function: considered indeterminate. No regional wall motion abnormalities noted. Right Ventricle Normal RV size. Normal systolic function. Atria The left atrium is mildly enlarged. Normal right atrium. No doppler evidence for ASD. Mitral Valve There is no mitral annular calcification. Normal mitral valve. Trivial mitral valve insufficiency. Tricuspid Valve Normal tricuspid valve. Trivial tricuspid valve insufficiency. Right ventricular systolic pressure estimated to be 24 mmHg. Aortic Valve Trisinus/trileaflet aortic valve. Mild focal aortic valve calcification. Trivial aortic valve insufficiency. Pulmonic Valve The pulmonic valve is not well visualized. Trivial pulmonic valve insufficiency. Great Vessels Normal sized aortic root. Pericardium/Pleural No pericardial effusion. MMode/2D Measurements AND Calculations LVIDd: 4.6 cm IVSd: 1.3 cm Ao root diam: 3.4 cm LVIDs: 3.0 cm LVPWd: 1.00 cm LA dimension: 4.5 cm RVDd: 2.5 cm FS: 34.3 % LAV(MOD-bp): 58.6 ml EDV(MOD-sp4): 67.8 ml EDV(MOD-sp2): 52.1 ml LAV(MOD-bp) Indexed: 31.0 ml/m2 ESV(MOD-sp4): 34.0 ml EF(MOD-sp2): 43.4 % LAV(MOD-sp2): 59.4 ml EF(MOD-sp4): 49.9 % LAV(MOD-sp4): 54.7 ml SV(MOD-sp4): 33.8 ml SV(MOD-sp2): 22.6 ml LA A4 area: 20.0 cm2 RA A4 area: 14.3 cm2 Doppler Measurements AND Calculations MV E max reji: 44.9 cm/sec Lat Peak E' Reji: 10.5 cm/sec Med Peak E' Reji: 3.6 cm/sec MV A max reji: 68.9 cm/sec E/E' lat: 4.3 E/E' med: 12.4 MV E/A: 0.65 Ao V2 max: 138.1 cm/sec LV V1 max: 81.2 cm/sec PA V2 max: 86.5 cm/sec Ao max P.6 mmHg LV V1 max P.6 mmHg PI end-d reji: 121.6 cm/sec TR max reji: 226.3 cm/sec TR max P.6 mmHg Interpretation Summary The study was technically difficult. Left ventricular systolic function is normal. The estimated ejection fraction is 55 %. Sigmoid septum. The left atrium is mildly enlarged. Trivial mitral valve insufficiency. Trivial tricuspid valve insufficiency. Mild focal aortic valve calcification. Trivial aortic valve insufficiency. Trivial pulmonic valve insufficiency. Right ventricular systolic pressure estimated to be 24 mmHg. Diastolic function: considered indeterminate. Ordering Physician: Kieran Fernandes Referring Physician: Kieran Fernandes Chi Performed By: Silvia Chavarria, OMER, RVT 10/29/171806 Date Sandoval Pleitez MD CC: Kieran Fernandes MD Date Dictated: 10/29/17 1350 Date Transcribed: 10/29/171806 Poultry Trimmer: Signed BASIC METABOLIC Collected: 10/29/2017 Status: F Source: [place] PROFILE (BMP) 11:50 AM [facility] REPOSITORY TYPE CODE TESTS RESULT OUT OF RANGE REFERENCE UNITS LAB L501.0100 74-106 mg/dL Normal GLU 92 Result Comment: Please note revised GLUCOSE reference range effective 2017. LAB L501.1000 7-18 mg/dL High BUN 36 LAB L501.1100 0.70-1.30 mg/dL High CREAT,SERUM 2.28 Result Comment: The validity of the calculated GFR AND GFRAA in patients over 70 years has not been determined. Clinical correlation is essential. LAB L501.1110 >60 mL/min Low EST GFR 30 Result Comment: Non- GFR Calc LAB L501.1115 >60 mL/min Low EST GFR - AA 36 Result Comment: GFR Calc LAB L501.1300 10-20 RATIO Normal BUN/CRE 15.8 LAB L501.2200 8.5-10.1 mg/dL CA Normal 8.5 LAB L501.5300 136-145 mmol/L NA Normal 143 LAB L501.5600 3.5-5.1 mmol/L K Normal 3.9 Result Comment: Slight Hemolysis, Result may be falsely increased. LAB L501.5900 98-107 mmol/L Normal CL 107 LAB L501.6100 21.0-32.0 mmol/L Normal CO2 26.0 LAB L501.6200 5-15 Normal GAP 10 Performed By: #### L500.2500 #### [facility] [address] [place], [address] 12 LEAD ELECTROCARDIOGRAM Observed: 10/23/2017 Status: F Source: [place] 1:41 PM [facility] REPOSITORY [facility] Cardiovascular Services [address] [place] [address] 12 Lead EKG 10/21/17 1341 MR#: [id number] Acct: [id number] Name: LUCIEN YOUNGER Vicky Rep #: [id number] : 1935 81 From: Forest Miranda MD Attending Dr: Status: DEP ER Ordering Dr: Adolph Armas DO Date: 10/21/17 Location: ED Sex: M C Admitted: Test Reason : CP Blood Pressure : / mmHG Vent. Rate : 076 BPM Atrial Rate : 076 BPM P-R Int : 100 ms QRS Dur : 100 ms QT Int : 408 ms P-R-T Axes : -20 000 038 degrees QTc Int : 459 ms Sinus rhythm with short DC with Premature atrial complexes Otherwise normal ECG Confirmed by FOREST MIRANDA MD ([id number]), editor index SALLY OMALLEY (58) on 10/23/2017 1:41:09 PM Referred By: FRANKO/LAMONT Confirmed By:FOREST MIRANDA MD 10/23/17 1341 Date Forest Miranda MD CC: Adolph Armas DO; Kieran Fernandes MD Signed EMERGENCY DEPARTMENT Observed: 10/21/2017 Status: F Source: [place] SUMMARY 4:55 PM [facility] REPOSITORY [facility] Medical Records Department [address] [place] [address] Emergency Department Summary 10/21/17 1536 MR#: [id number] Acct: [id number] Name: LUCIEN YOUNGER I Rep #: [id number] : 1935 81 From: Adolph Armas DO PCP: Kieran Fernandes MD, Chi Status: DEP ER - ER Visit Summary Date of Service: 10/21/17 Chief Complaint: Chest pain History of Present Illness: The patient is a 81 M who states that yesterday afternoon he went to take a potassium chloride tablet while swallowing it developed a pressure in his chest. It has been constant since that time. He has not had drooling or difficulty swallowing. He describes it as a pressure. He states he had the same symptoms 1 month ago when he tried to swallow another potassium chloride tablet. He is to be taking potassium chloride as he has been placed on a diuretic. States he has a history of a hiatal hernia surgery that went bad resulting in significantly prolonged hospitalization and rehabilitation stay and surgical complications. I see that in the past he has had esophageal impactions. He has a history of hypertension high cholesterol. He does not take a daily aspirin. He is not a smoker. He does not have known coronary artery disease. Physical Examination: Afebrile vital signs are stable Gen: Well-nourished well-developed Head: Normocephalic atraumatic Eyes: Perrl EOMI ENT: TMs clear no rhinorrhea moist mucous membranes Neck: Supple no lymphadenopathy no JVD nontender CVS: Regular rate rhythm no murmurs normal S1-S2 Respiratory: No distress clear to auscultation bilaterally chest nontender Abdomen: Soft nontender nondistended normal bowel sounds no masses Back: Nontender Extremity: Nontender no edema skin tear left elbow Skin: Normal color no rash Neuro: alert orientated 3 CN II-XII intact normal strength sensation reflexes gait cerebellar Psych: Normal affect normal mood Test Results: EKG shows a sinus rhythm with PAC at a rate of 76. Potassium 3.2. CBC normal. Troponin less than 0.015. Chest x-ray is negative. Emergency Department Course and Treatment: Patient's ROSALIA score is 1 for age greater than 65. Patient has had just short of 24 hours of constant discomfort with a negative EKG and negative troponin. Patient received a GI cocktail. The patient has had numerous evaluations in the past for esophageal impactions and esophageal strictures. Given that this came at time when he was attempting to swallow a large potassium chloride pill and happened 1 month ago under similar circumstances I believe this episode of chest pain not to be cardiac but rather esophageal in nature. I will switch him from the pills to the powdered form of potassium and encouraged him to follow-up with gastroenterology as he may need to have a dilatation again. Impression: 1. Chest pain 2. Hypokalemia This note was generated with [employer] dictation software. It may contain incorrect words, spelling, and punctuation that were not noted in review of the chart prior to signing ED Disposition - Plan for ED Patient: Disposition: Home or Assisted Living Chief Complaint: Hypertension Instructions: ED Potassium Deficiency, ED Chest Pain Atypical Unkn Cause Prescriptions: Potassium Chloride [Klor-Con] 20 meq PO DAILY #10 packet Referrals: Kieran Fernandes Chi, MD [Primary Care Provider] - 1 Week Additional Instructions: Discontinue your potassium pills and begin and the powdered form I would encourage you to follow-up with your contour stitcher as you may need to have a dilatation of your esophagus again What to do if you have Problems For any increased pain, shortness of breath, bleeding, nausea or vomiting, chest pain, or any unexpected problems, contact your Primary Care Provider. Call [facility] ([phone]) or report to the closest Emergency Room. Call 911 if necessary. 10/21/17 3473 <Electronically signed by Adolph Armas DO> Date Adolph Armas DO Cosigner Signature (If Indicated): Date CC: Kieran Fernandes MD CHEST PA AND LATERAL Observed: 10/21/2017 Status: F Source: [place] 2:02 PM [facility] REPOSITORY [facility] Imaging Services [address] [place] [address] Chest PA and Lateral MR#: [id number] Acct: [id number] Name: LUCIEN YOUNGER I Rep #: [id number] : 1935 M 81 From: Roman Joiner MD PCP: Kieran Fernandes MD, Chi Status: REG ER Study: Chest PA and Lateral Date of Exam: 10/21/17 Exam# [id number] Ordering Dr: Adolph Armas DO STUDY: X-RAY CHEST REASON FOR EXAM: Male, 81 years old. Chest pain. TECHNIQUE: PA and lateral views of the chest. COMPARISON: Comparison is made with prior study dated April 10, 2014. FINDINGS: EKG electrodes are seen. Stable increased linear markings in the right midlung as well as in the lateral aspect of the right hemithorax suggestive of scarring. Stable mild scarring at the left lung base as well. Stable calcified granuloma in the left midlung. There is no demonstrated pleural abnormality. Normal size heart. Normal mediastinum and lona. Normal visualized pulmonary arteries. There is atherosclerotic calcification of the aortic arch with tortuosity. There are diffuse degenerative changes of the visualized thoracic spine. Normal visualized ribs, clavicles, and shoulders. A filter is seen within the inferior vena cava. RAD/Chest PA and Lateral IMPRESSION: Stable examination. 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 CBC W/DIFF, AUTOMATED Collected: 10/21/2017 Status: F Source: [place] 2:00 PM [facility] REPOSITORY TYPE CODE TESTS RESULT OUT OF RANGE REFERENCE UNITS LAB L100.1000 4.4-11.0 K/mm3 Normal WBC 6.0 LAB L100.1200 4.6-6.2 M/mm3 Low RBC 4.47 LAB L100.1300 13.0-16.5 g/dl Normal HGB 14.1 LAB L100.1400 40-54 % Normal HCT 40.8 LAB L100.1500 80-94 fL Normal MCV 91.3 LAB L100.1600 27.0-32.0 pg Normal MCH 31.5 LAB L100.1700 32-36 g/gl Normal MCHC 34.6 LAB L100.1810 11.6-14.6 % Normal RDW CV 13.1 LAB L100.1820 35.1-43.9 fl Normal RDW SD 43.6 LAB L100.1900 150-450 K/mm3 Normal PLT 185 LAB L100.2000 6.2-12.0 fl Normal MPV 11.1 LAB L100.2100 47-70 % High NEUT% 70.4 LAB L100.2200 19-41 % Normal LY% 19.6 LAB L100.2300 0-10 % Normal MONO% 8.1 LAB L100.2400 0-5 % Normal EO% 1.2 LAB L100.2500 0-1 % Normal BASO% 0.5 LAB L100.2550 0.0-0.9 % Normal IM GRAN % 0.200 Result Comment: IG% - Immature Granulocytes (promyelocytes, myelocytes and metamyelocytes) > 1% indicates that a LEFT SHIFT is Present. LAB L100.2620 2.0-7.7 X10 3/uL Normal Absolute Neut 4.2 LAB L100.2720 0.83-4.51 X10 3/ul Normal Absolute Lymph 1.18 Performed By: #### L100.0100 #### [facility] [address] [place], [address] COMPREHENSIVE METABOLIC Collected: 10/21/2017 Status: F Source: [place] PROFIL 2:00 PM [facility] REPOSITORY TYPE CODE TESTS RESULT OUT OF RANGE REFERENCE UNITS LAB L501.0100 74-106 mg/dL High GLU 116 Result Comment: Fasting Glucose result from 100 to 125 mg/dL suggests IMPAIRED HOMEOSTASIS per A.D.A. criteria. Please note revised GLUCOSE reference range effective 2017. LAB L501.1000 7-18 mg/dL Normal BUN 14 LAB L501.1100 0.70-1.30 mg/dL High CREAT,SERUM 1.57 Result Comment: The validity of the calculated GFR AND GFRAA in patients over 70 years has not been determined. Clinical correlation is essential. LAB L501.1110 >60 mL/min Low EST GFR 45 Result Comment: Non- GFR Calc LAB L501.1115 >60 mL/min Low EST GFR - AA 55 Result Comment: GFR Calc LAB L501.1255 ml/min Normal Estimated CRCL 38.15 LAB L501.1300 10-20 RATIO Low BUN/CRE 8.9 LAB L501.1500 6.4-8. g/dL Normal 2 T PROT 6.9 LAB L501.1800 3.2-5. g/dL Normal 0 ALB 3.6 LAB L501.1950 2.2-4. g/dL Normal 2 GLOB 3.3 LAB L501.2000 0.9-2. RATIO Normal 4 A/G 1.1 LAB L501.2200 8.5-10 mg/dL Normal .1 CA 8.6 LAB L501.4100 15-37 U/L Normal AST 29 LAB L501.4305 45-117 U/L High ALK P 140 LAB L501.4405 16-61 U/L Normal ALT 26 LAB L501.4600 0.20-1 mg/dL Normal .00 T BILI 0.60 LAB L501.5300 136-14 mmol/L Normal 5 NA 140 LAB L501.5600 3.5-5. mmol/L Low 1 K 3.2 LAB L501.5900 98-107 mmol/L Normal CL 102 LAB L501.6100 21.0-3 mmol/L Normal 2.0 CO2 31.0 LAB L501.6200 5-15 Normal GAP 7 Performed By: #### L500.4050, L501.2450, L501.4010 #### [facility] [address] [place], [address] LIPASE Collected: 10/21/2017 Status: F Source: [place] 2:00 PM [facility] REPOSITORY TYPE CODE TESTS RESULT OUT OF RANGE REFERENCE UNITS LAB L501.2450 73-393 U/L Normal LIPASE 83 Performed By: #### L500.4050, L501.2450, L501.4010 #### [facility] [address] [place], [address] TROPONIN-I Collected: 10/21/2017 Status: F Source: [place] 2:00 PM [facility] REPOSITORY TYPE CODE TESTS RESULT OUT OF RANGE REFERENCE UNITS LAB L501.4010 <0.045 ng/mL Normal < 0.015 TROPONIN-I Result Comment: TROPONIN-I EXPECTED VALUES <0.045 Negative 0.045 - 0.590 Consistent with Cardiac Damage > OR = 0.600 Critical Value Not every elevated troponin is indicative of TN. These values should be used with clinical judgement in examining the patient's clinical picture for diagnosis. To establish a diagnosis of TN versus myocardial injury, there must be a demonstrated rise and/or fall in the troponin values, in addition to ischemic symptoms, EKG changes, new regional wall motion abnormality, and/or angiographical evidence. PLEASE NOTE: REFERENCE RANGES EDITED 17 Performed By: #### L500.4050, L501.2450, L501.4010 #### [facility] [address] [place], [address] CBC W/DIFF, AUTOMATED Collected: 10/16/2017 Status: F Source: [place] 9:51 AM [facility] REPOSITORY TYPE CODE TESTS RESULT OUT OF RANGE REFERENCE UNITS LAB L100.1000 4.4-11.0 K/mm3 Normal WBC 4.8 LAB L100.1200 4.6-6.2 M/mm3 Low RBC 4.14 LAB L100.1300 13.0-16.5 g/dl Low HGB 12.7 LAB L100.1400 40-54 % Low HCT 38.5 LAB L100.1500 80-94 fL Normal MCV 93.0 LAB L100.1600 27.0-32.0 pg Normal MCH 30.7 LAB L100.1700 32-36 g/gl Normal MCHC 33.0 LAB L100.1810 11.6-14.6 % Normal RDW CV 13.4 LAB L100.1820 35.1-43.9 fl High RDW SD 45.4 LAB L100.1900 150-450 K/mm3 Normal PLT 177 LAB L100.2000 6.2-12.0 fl Normal MPV 11.4 LAB L100.2100 47-70 % Normal NEUT% 62.8 LAB L100.2200 19-41 % Normal LY% 22.7 LAB L100.2300 0-10 % High MONO% 10.2 LAB L100.2400 0-5 % Normal EO% 3.5 LAB L100.2500 0-1 % Normal BASO% 0.8 LAB L100.2550 0.0-0.9 % Normal IM GRAN % 0.000 Result Comment: IG% - Immature Granulocytes (promyelocytes, myelocytes and metamyelocytes) > 1% indicates that a LEFT SHIFT is Present. LAB L100.2620 2.0-7.7 X10 3/uL Normal Absolute Neut 3.0 LAB L100.2720 0.83-4.51 X10 3/ul Normal Absolute Lymph 1.09 Performed By: #### L100.0100 #### [facility] [address] [place] [address]. [place], [address] BASIC METABOLIC Collected: 10/16/2017 Status: F Source: [place] PROFILE (BMP) 9:51 AM [facility] REPOSITORY TYPE CODE TESTS RESULT OUT OF RANGE REFERENCE UNITS LAB L501.0100 74-106 mg/dL Normal GLU 90 Result Comment: Please note revised GLUCOSE reference range effective 2017. LAB L501.1000 7-18 mg/dL Normal BUN 13 LAB L501.1100 0.70-1.30 mg/dL High CREAT,SERUM 1.33 Result Comment: The validity of the calculated GFR AND GFRAA in patients over 70 years has not been determined. Clinical correlation is essential. LAB L501.1110 >60 mL/min Low EST GFR 55 Result Comment: Non- GFR Calc LAB L501.1115 >60 mL/min Normal EST GFR - AA 67 Result Comment: GFR Calc LAB L501.1300 10-20 RATIO Low BUN/CRE 9.8 LAB L501.2200 8.5-10.1 mg/dL Normal CA 8.8 LAB L501.5300 136-145 mmol/L Normal NA 144 LAB L501.5600 3.5-5.1 mmol/L Normal K 3.8 LAB L501.5900 98-107 mmol/L Normal CL 105 LAB L501.6100 21.0-32.0 mmol/L Normal CO2 30.0 LAB L501.6200 5-15 Normal GAP 9 Performed By: #### L500.2500 #### [facility] [address] [facility] [place], [address] BNP,B-TYPE NATRIURETIC Collected: 10/16/2017 Status: F Source: [place] PEPTIDE 9:51 AM [facility] REPOSITORY TYPE CODE TESTS RESULT OUT OF RANGE REFERENCE UNITS LAB L503.6620 0-100 pg/mL High B-TYPE 163.4 ROSA PEP Performed By: #### L503.6620 #### [facility] [address] [place], [address] SURGICAL PATHOLOGY Observed: 08/13/2017 Status: F Source: [place] 2:33 PM [facility] REPOSITORY Specimen originated from [facility] Specimen #: [id number] Submitting Physician: PHILIPPE SPIVEY MD FINAL DIAGNOSIS Esophagus, nodularity, biopsy - Squamous esophageal mucosa and inflamed gastric cardia-type mucosa with reactive epithelial changes and mild foveolar hyperplasia. - No intestinal metaplasia or epithelial dysplasia. ES/rw 08/17/2017 Lynette Christianson M.D. (Electronic Signature) SPECIMEN SUBMITTED A: ESOPHAGUS NODULARITY, BIOPSY CLINICAL DATA hx dysphagia GROSS DESCRIPTION A. Received in formalin are two pieces of adams, soft tissue aggregating to 0.4 x 0.2 x 0.1 cm. Totally submitted in one cassette. Gross examination performed at [facility], [address] [place] [address] 08/13/2017 11:39:20 PM Date of Report: 08/17/2017 Date of Procedure: 08/13/2017 Date of Receipt: 08/13/2017 Submitted by: PHILIPPE SPIVEY MD Location: [place] [address] Diagnostic interpretation performed at [facility], [address] [place] [address]. CNPN Observed: 08/06/2017 Status: COMPLETED Source: [place] 12:00 AM [facility] REPOSITORY Telephone (GASTMN) ARENLUCIEN I ([id number]) 1935 M Date Time Provider Department 08/06/17 SHINE DURAN [facility] During your visit today, we recorded the following information about you: Naila Johnson 08/06/2017 10:45 AM Addendum (Iris) called stating that is dire need of a repeat EGD Dilation to stretch his throat. Says it worked previously, and need repeated. Says is unable to eat, and sips his liquids slowly Very Gassy Burping Notes NO vomiting, nausea or choking. Today, had 1/2 egg and piece of small toast; could barely get it down. Can Dr. Duran please place orders?? Also, does he need to be seen for an office visit? Last office visit: 07/25/16. If so, because she can barely walk and they are elderly, would appreciated a coordinated appt. They will accept anyday or time for BOTH office visit and EGD Dilation appts, EXCEPT August 24; as they cannot do. Please contact her at home/cell at [phone] (okay to leave a message) Shine Duran 08/10/2017 12:06 PM Signed Order placed I have been away since 08/05 Shine ChesterNaila 08/11/2017 9:53 AM Signed Called, notified and transferred patient's to schedule appointment. Allergies As of Date: 08/06/2017 (No Known Allergies) Date Reviewed: 09/03/2016 Reviewed by: Yumiko Root ([facility]) - Fully Assessed Reason for Visit: Orders [681] Cmt: EGD Primary Visit Diagnosis:Esophageal stenosis [K22.2] Order(s):EGD DILATION [8892225] Order #: [id number] FUTURE Prescriptions as of 08/06/2017 Sig: MIRTAZAPINE 15 MG TABLET Take 1 tablet by mouth daily * BUSPIRONE 10 MG TABLET Take 1 tablet by mouth three * BIFIDOBACTERIUM INFANTIS 4 MG* Take 1 capsule by mouth once * LANSOPRAZOLE 30 MG CAPSULE,DE* Take 30 mg by mouth once viktoria* CLONIDINE 0.1 MG/24 HR WEEKLY* Apply 1 Patch as directed onc* CLONIDINE 0.3 MG/24 HR WEEKLY* Apply 1 Patch as directed onc* HYDROCODONE 7.5 MG-ACETAMINOP* Take 1 tablet by mouth as nee* THERAPEUTIC MULTIVITAMIN TABL* Take 1 tablet by mouth once d* PRILOSEC 20 MG CAPSULE,DELAYE* Take one(1) capsule daily. NORVASC 10 MG TABLET Take one(1) tablet daily. 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 LAB L501.1000 7-18 mg/dL Normal BUN 12 LAB L501.1100 0.70-1.30 mg/dL Normal CREAT,SERUM 1.20 Result Comment: The validity of the calculated GFR AND GFRAA in patients over 70 years has not been determined. Clinical correlation is essential. LAB L501.1110 >60 mL/min Normal EST GFR 62 Result Comment: Non- GFR Calc LAB L501.1115 >60 mL/min Normal EST GFR - AA 75 Result Comment: GFR Calc LAB L501.1300 10-20 RATIO Normal BUN/CRE 10.0 LAB L501.2200 8.5-10.1 mg/dL Low CA 7.8 LAB L501.5300 136-145 mmol/L NA Normal 145 LAB L501.5600 3.5-5.1 mmol/L Low K 3.2 LAB L501.5900 98-107 mmol/L CL Normal 106 LAB L501.6100 21.0-32.0 mmol/L High CO2 34.0 LAB L501.6200 5-15 Normal GAP 5 Performed By: #### L500.2500 #### [facility] [address] [place], [address] CBC W/DIFF, AUTOMATED Collected: 05/25/2017 Status: F Source: [place] 10:20 AM [facility] REPOSITORY TYPE CODE TESTS RESULT OUT OF RANGE REFERENCE UNITS LAB L100.1000 4.4-11.0 K/mm3 Normal WBC 5.2 LAB L100.1200 4.6-6.2 M/mm3 Low RBC 4.04 LAB L100.1300 13.0-16.5 g/dl Normal HGB 13.1 LAB L100.1400 40-54 % Low HCT 37.6 LAB L100.1500 80-94 fL Normal MCV 93.1 LAB L100.1600 27.0-32.0 pg High MCH 32.4 LAB L100.1700 32-36 g/gl Normal MCHC 34.8 LAB L100.1810 11.6-14.6 % Normal RDW CV 13.6 LAB L100.1820 35.1-43.9 fl High RDW SD 45.6 LAB L100.1900 150-450 K/mm3 Normal PLT 172 LAB L100.2000 6.2-12.0 fl Normal MPV 11.6 LAB L100.2100 47-70 % Normal NEUT% 65.7 LAB L100.2200 19-41 % Normal LY% 21.1 LAB L100.2300 0-10 % Normal MONO% 9.0 LAB L100.2400 0-5 % Normal EO% 2.7 LAB L100.2500 0-1 % High BASO% 1.5 LAB L100.2550 0.0-0.9 % Normal IM GRAN % 0.000 Result Comment: IG% - Immature Granulocytes (promyelocytes, myelocytes and metamyelocytes) > 1% indicates that a LEFT SHIFT is Present. LAB L100.2620 2.0-7.7 X10 3/uL Normal Absolute Neut 3.4 LAB L100.2720 0.83-4.51 X10 3/ul Normal Absolute Lymph 1.10 Performed By: #### L100.0100 #### [facility] [address] [facility] [place], [place], [address] VITAMIN D,25 HYDROXY Collected: 05/25/2017 Status: F Source: [place] 10:20 AM [facility] REPOSITORY TYPE CODE TESTS RESULT OUT OF RANGE REFERENCE UNITS LAB L506.1000 19.95-100.01 ng/mL Normal Vitamin D 22.7 25-OH Result Comment: Vitamin D 25(OH) Status Range Deficiency <20 ng/mL (50nmol/L) Insuffciency 20 - 30 ng/mL (50 - 75 nmol/L) Sufficiency 30 - 100 ng/mL (75 - 250 nmol/L) Toxicity >100 ng/mL (>250 nmol/L) Performed By: #### L506.1000 #### [facility] [address] [facility] [place], [address] COMPREHENSIVE METABOLIC Collected: 05/25/2017 Status: F [facility] REPOSITORY TYPE CODE TESTS RESULT OUT OF RANGE REFERENCE UNITS LAB L501.0100 74-106 mg/dL Normal GLU 89 Result Comment: Please note revised GLUCOSE reference range effective 2017. LAB L501.1000 7-18 mg/dL Normal BUN 11 LAB L501.1100 0.70-1.30 mg/dL Normal CREAT,SERUM 1.13 Result Comment: The validity of the calculated GFR AND GFRAA in patients over 70 years has not been determined. Clinical correlation is essential. LAB L501.1110 >60 mL/min Normal EST GFR 66 Result Comment: Non- GFR Calc LAB L501.1115 >60 mL/min Normal EST GFR - AA 80 Result Comment: GFR Calc LAB L501.1300 10-20 RATIO Low BUN/CRE 9.7 LAB L501.1500 6.4-8.2 g/dL Low T PROT 6.2 LAB L501.1800 3.2-5.0 g/dL Low ALB 3.1 LAB L501.1950 2.2-4.2 g/dL Normal GLOB 3.1 LAB L501.2000 0.9-2.4 RATIO Normal A/G 1.0 LAB L501.2200 8.5-10.1 mg/dL Low CA 8.1 LAB L501.4100 15-37 U/L High AST 42 LAB L501.4305 45-117 U/L Normal ALK P 111 LAB L501.4405 16-61 U/L Normal ALT 42 Result Comment: Please note revised ALT reference range effective 2017. LAB L501.4600 0.20-1.00 mg/dL Normal T BILI 0.50 LAB L501.5300 136-145 mmol/L High NA 146 LAB L501.5600 3.5-5.1 mmol/L Normal K 3.6 LAB L501.5900 98-107 mmol/L High CL 110 LAB L501.6100 21.0-32.0 mmol/L Normal CO2 31.0 LAB L501.6200 5-15 Normal GAP 5 Performed By: #### L500.4050, L501.9520 #### [facility] [address] [place], [address] THYROID STIM HORMONE Collected: 05/25/2017 Status: F Source: [place] (TSH) 10:20 AM [facility] REPOSITORY TYPE CODE TESTS RESULT OUT OF RANGE REFERENCE UNITS LAB L501.9520 0.358-3.74 uIU/mL Normal TSH 1.98 Performed By: #### L500.4050, L501.9520 #### [facility] [address] [place], [place], [address] CPK TOTAL, CREATINE Collected: 05/19/2017 Status: F Source: [place] KIN[place] 4:22 PM [facility] REPOSITORY Order Comment: 'TROP' Serial specimen #1, #2, #3, or #4: 1 TYPE CODE TESTS RESULT OUT OF RANGE REFERENCE UNITS LAB L501.3620 39-308 U/L Normal CPK TOTAL 134 Performed By: #### L501.3620, L501.4010 #### [facility] [address] [place], [place], [address] TROPONIN-I Collected: 05/19/2017 Status: F Source: [place] 4:22 PM [facility] REPOSITORY Order Comment: 'TROP' Serial specimen #1, #2, #3, or #4: 1 TYPE CODE TESTS RESULT OUT OF RANGE REFERENCE UNITS LAB L501.4010 <0.06 ng/mL Normal < 0.02 TROPONIN-I Result Comment: TROPONIN-I EXPECTED VALUES <0.05 NEGATIVE 0.06 - 0.59 AT RISK OF TN > OR = 0.60 SUGGEST TN Performed By: #### L501.3620, L501.4010 #### [facility] [address] [place], [place], [id number] MYOGLOBIN, SERUM Collected: 05/19/2017 Status: F Source: [place] 4:22 PM [facility] REPOSITORY TYPE CODE TESTS RESULT OUT OF RANGE REFERENCE UNITS LAB L3600.5100 28-72 ng/mL Normal 59 Myoglobin, Ser Result Comment: Performed at: [facility] [id number] Master Automotive Glass Technician: Juan Diego Woods PhD, Phone: [phone] Performed By: #### L3600.5100 #### [facility] (refer to report for specific site) refer to report for address and phone number ALLERGIES ALLERGIES DATE TYPE / CODE NAME / CODE REACTION SEVERITY SOURCE 10/21/2017 Drug No Known Unknown [facility] Allergy/416 Allergies/D62086 Hospital 254009(SNOM 0388(RXNORM) Repository ED CT) Drug NO KNOWN [facility] Class/18171 ALLERGIES Main Wall 1003(SNOMED Repository CT) ENCOUNTERS ENCOUNTERS ADMIT/DISCHARGE ACCOUNT ADMITTING ENCOUNTER LOCATION SOURCE NUMBER CLASS 04/20/2018 [id number] Ambulatory [facility] ing:PSN Repository 03/24/2018 [id number] Ambulatory [facility] ing:PSN Repository 03/01/2018 [id number] Ambulatory [facility] ing:LAB.FUTUR Repository E 01/20/2018 [id number] Ambulatory [facility] ing:LAB.FUTUR Repository E 01/04/2018 [id number] Ambulatory [facility] ing:LAB.FUTUR Repository E 11/30/2017 [id number] Ambulatory [facility] ing:US Repository 11/27/2017 [id number] Ambulatory [facility] ing:LAB.FUTUR Repository E 11/26/2017 [id number] Ambulatory [facility] ing:POLAB3 Repository 11/23/2017 [id number] Ambulatory [facility] ing:POLAB3 Repository 10/29/2017 [id number] Ambulatory [facility] ing:[facility] Repository 10/29/2017 [id number] Ambulatory [facility] Repository 10/29/2017 [id number] Ambulatory [facility] ing:POLAB3 Repository 10/21/2017/10/22/19 [id number] Emergency [address] [facility]ED Repository 10/16/2017 [id number] Ambulatory [facility] ing:POLAB3 Repository 08/13/2017/08/14/19 [id number] Ambulatory [address] Repository 08/04/2017 [id number] Ambulatory [facility] ing:LAB Repository 06/19/2017 [id number] [facility] ing:POLAB3 Repository 05/25/2017 [id number] [facility] ing:LAB Repository 05/19/2017 [id number] [facility] ing:POLAB3 Repository PAYERS PAYERS ENCOUNTER GUARANTOR PAYER SUBSCRIBER SOURCE 04/20/2018 LUCIEN COLON36 Primary LUCIEN I Eduardo [place] Insurance:GEORGIANA LORENZOB: [facility] Saurabh [facility]: [id number] Hospital [address]Pan: (330) MEBJXZSSEffective Repository [phone] (HP) Date:5761-71-64ZL [address] [place] [address]GS: 04/20/2018 Secondary NOT GIVENUNK [place] Insurance:SELF PAY [facility] Number: Effective Repository Date:2018-04-20 03/24/2018 LUCIEN YOUNGER3536 Primary LUCIEN I Eduardo [place] Insurance:AESARWAT LORENZOB: [facility] Number: [id number] Hospital 630[address]Usx: (330) MEBJXZSSEffective Repository [phone] (HP) Date:2585-58-79NX [address] [place] [address]NO: 03/24/2018 Secondary NOT GIVENUNK Eduardo Insurance:SELF PAY [facility] Number: Effective Repository Date:2018-03-24 03/01/2018 LUCIEN YOUNGER3536 Primary LUCIEN I [place] Insurance:GEORG[place]NA LORENZOB: [facility] Number: [id number] Hospital [address]Mwz: (330) MEBJXZSSEffective Repository [phone] (HP) Date:9502-39-38OO [address] [place] [address]OA: 03/01/2018 Secondary NOT GIVENUNK [place] Insurance:SELF PAY [facility] Number: Effective Repository Date:2018-02-22 01/20/2018 LUCIEN COLON36 Primary LUCIEN I Eduardo [place] Insurance:AETGREGORIO LORENZOB: [facility] Number: [id number] Hospital [address]Uek: (330) MEBJXZSSEffective Repository [phone] (HP) Date:5826-08-09FD [address], [place] [address]TJ: 01/20/2018 Secondary NOT GIVENUNK Eduardo Insurance:SELF PAY [facility] Number: Effective Repository Date:2018-01-06 01/04/2018 LUCIEN COLON36 Primary LUCIEN I [place] Insurance:AETGREGORIO YOUNGERB: [facility] Number: [id number] Hospital 87[address]Llm: (330) MEBJXZSSEffective Repository [phone] (HP) Date:0316-87-80AL [address], [place] [address]EM: 01/04/2018 Secondary NOT GIVENUNK [place] Insurance:SELF PAY [facility] Number: Effective Repository Date:2017-12-28 11/30/2017 LUCIEN COLON36 Primary LUCIEN I Eduardo [place] Insurance:GEORG[place]NA YOUNGERB: [facility] Number: [id number] Hospital [address]Rvi: (330) MEBJXZSSEffective Repository [phone] (HP) Date:1977-57-04CL [address], [place] [address]QY: 11/30/2017 Secondary NOT GIVENUNK Eduardo Insurance:SELF PAY [facility] Number: Effective Repository Date:2017-11-26 11/27/2017 LUCIEN YOUNGER3536 Primary LUCIEN I Eduardo [place] Insurance:AETNA ARENB: [place] [address] MCRPolicy Number: [id number] Hospital [address]Xui: (330) MEBJXZSSEffective Repository [phone] (HP) Date:0353-67-93AW [address] [address]LW: 11/27/2017 Secondary NOT GIVENUNK Eduardo Insurance:SELF PAY [facility] Number: Effective Repository Date:2017-11-27 11/26/2017 LUCIEN COLON36 Primary LUCIEN I Eduardo [place] Insurance:GEORGIANA LORENZOB: [facility] [address] MCRPolicy Number: [id number] Hospital [address]Skp: (330) MEBJXZSSEffective Repository [phone] (HP) Date:2240-49-89LK [address], [place] [address]MA: 11/26/2017 Secondary NOT GIVENUNK [place] Insurance:SELF PAY [facility] Number: Effective Repository Date:2017-11-26 11/23/2017 LUCIENDHARMESH YOUNGER3536 Primary LUCIEN I [place] Insurance:GEORGIANA LORENZOB: [facility] maranda Noriega MCRPolicy Number: [id number] Hospital [address]Xig: (330) MEBJXZSSEffective Repository [phone] (HP) Date:7590-04-00UC [address], [place] [address]OH: 11/23/2017 Secondary NOT GIVENUNK [place] Insurance:SELF PAY [facility] Number: Effective Repository Date:2017-11-23 10/29/2017 LUCIEN YOUNGER3536 Primary LUCIEN I Eduardo [place] Insurance:GEORGIANA LORENZOB: [facility] MCRPolicy Number: [id number] Hospital 737[address]Ygz: (330) MEBJXZSSEffective Repository [phone] (HP) Date:5954-92-41TJ [address], [place] [address]VW: 10/29/2017 Secondary NOT GIVENUNK [place] Insurance:SELF PAY [facility] Number: Effective Repository Date:2017-10-21 10/29/2017 LUCIEN YOUNGER3536 Primary LUCIEN I Eduardo [place] Insurance:AETGREGORIO YOUNGERDOB: [place] [address] MCRPolicy Number: [id number] Hospital 30745Ydd: (330) MEBJXZSSEffective Repository [phone] (HP) Date:5461-57-53KC [address], [place] [address]UO: 10/29/2017 Secondary NOT GIVENUNK [place] Insurance:SELF PAY [facility] Number: Effective Repository Date:2017-10-29 10/29/2017 LUCIEN COLON36 Primary LUCIEN I [place] Insurance:AETNA ARENDOB: [place] [facility] Number: [id number] Hospital 556[address]Hlb: (330) MEBJXZSSEffective Repository [phone] (HP) Date:0538-33-34QD [address], [place] [address]PU: 10/29/2017 Secondary NOT GIVENUNK Eduardo Insurance:SELF PAY [facility] Number: Effective Repository Date:2017-10-16 10/21/2017 LUCIEN COLON36 Primary LUCIEN I Eduardo [place] Insurance:AETNA ARENDOB: [place] [address] MCRPolicy Number: [id number] Hospital 69[address]Byv: (330) MEBJXZSSEffective Repository [phone] (HP) Date:0601-04-93GD [address], [place] [address]MD: 10/21/2017 Secondary NOT GIVENUNK Eduardo Insurance:SELF PAY [facility] Number: Effective Repository Date:2017-10-21 10/16/2017 LUCIEN GONSALES Primary LUCIENDHARMESH [place] Insurance:AESARWAT LORENZOB: [facility] HospitalPolicy Number: [id number] Hospital 573[address]Top: (330 MEBJXZSSEffective Repository [phone] (HP) Date:2035-50-26EW [address], [place] [address]WW: 10/16/2017 Secondary NOT GIVENUNK Eduardo Insurance:SELF PAY [facility] Number: Effective Repository Date:2017-10-16 08/04/2017 LUCIEN COLON36 Primary LUCIENDHARMESH [place] Insurance:AESARWAT LORENZOB: [facility] [place] Number: [id number] Hospital 348[address]Pdb: MEBJXZSSEffective Repository [phone] Date:5384-50-96NY [address] () [address], [place] [address]IW: 08/04/2017 Secondary NOT GIVENUNK [place] Insurance:SELF PAY [facility] Number: Effective Repository Date:2017-06-24 06/19/2017 LUCIEN COLON36 Primary LUCIENDHARMESH [place] Insurance:AETGREGORIO YOUNGERDOB: [facility] [place] Number: [id number] Hospital 639[address]Mnp: MEBJXZSSEffective Repository [phone] Date:4581-58-41GU [address] () [address], [place] [address]OB: 06/19/2017 Secondary NOT GIVENUNK [place] Insurance:SELF PAY [facility] Number: Effective Repository Date:2017-06-19 05/25/2017 LUCIEN COLON36 Primary LUCIENDHARMESH [place] Insurance:AETNA ARENDOB: [facility] [place] Number: [id number] Hospital 38[address]Ggk: MEBJXZSSEffective Repository [phone] Date:6974-10-35XA [address] () [address] [place] [address]WQ: 05/25/2017 Secondary NOT GIVENUNK Eduardo Insurance:SELF PAY [facility] Number: Effective Repository Date:2017-05-25 05/19/2017 LUCIEN YOUNGER3536 [facility]:GEORGIANA LORENZOB: [facility] Number: [id number] Hospital [address]Iho: MEBJXZSSEffective Repository [phone] Date:8663-23-33GP [address] () [address] [place] [address]XQ: 05/19/2017 Secondary NOT GIVENUNK [place] Insurance:SELF PAY [facility] Number: Effective Repository Date:2017-05-19
== END ==
PROVIDERS: Family Provider Family Medicine Geriatric Medicine; PCP Family Medicine Geriatric Medicine; Referring Provider Family Medicine Geriatric Medicine; Visit Provider Family Medicine Geriatric Medicine
DX: R68.83 Chills (without fever) (principal)
CPT/HCPCS: 87633

== ENCOUNTER → 2018-04-20 14:37 | Outpatient (CLI) | payer MEDICARE, SELFPAY | PROVIDERS: Family Provider Family Medicine Geriatric Medicine; PCP Family Medicine Geriatric Medicine; Referring Provider Family Medicine Geriatric Medicine; Visit Provider Family Medicine Geriatric Medicine | DX: R68.83 Chills (without fever) (principal) | CPT/HCPCS: 87633 ==

== ENCOUNTER → 2018-05-24 10:58 | Outpatient (CLI) | payer MEDICARE, SELFPAY | PROVIDERS: Family Provider Family Medicine Geriatric Medicine; PCP Family Medicine Geriatric Medicine; Referring Provider Family Medicine Geriatric Medicine; Visit Provider Family Medicine Geriatric Medicine | DX: N17.9 Acute kidney failure, unspecified (principal); R68.83 Chills (without fever) | CPT/HCPCS: 87633 ==

== ENCOUNTER → 2018-05-24 13:41 | Outpatient (CLI) | payer MEDICARE, SELFPAY ==
[2018-05-24 14:43] LABS: Absolute Lymphocyte Count 0.86 X10^3/ul (0.83-4.51); Absolute Neutrophil Count 4.1 X10^3/uL (2.0-7.7); Basophil# 0.04 X10^3/uL; Basophil% 0.7 % (0-1); Eosinophil# 0.06 X10^3/uL; Eosinophils% 1.1 % (0-5); Hematocrit 36.7 % (40-54); Hemoglobin 11.7 g/dl (13.0-16.5); Lymphocyte # 0.86 X10^3/ul (4.0); Lymphocyte % 15.8 % (19-41); Mean Corp Hgb Conc 31.9 g/gl (32-36); Mean Corpuscular Hgb 30.8 pg (27.0-32.0); Mean Corpuscular Volume 96.6 fL (80-94); Mean Platelet Vol. 11.5 fl (6.2-12.0); Monocyte# 0.38 X10^3/uL; Neutrophil # 4.12 X10^3/uL (2.7-7.7); Neutrophil % 75.4 % (47-70); Platelet Count 192 K/mm3 (150-450); RBC Distribution Width CV 15.6 % (11.6-14.6); RBC Distribution Width SD 54.7 fl (35.1-43.9); White Blood Count 5.5 K/mm3 (4.4-11.0)
[2018-05-24 14:53] LABS: Vitamin D,25 Hydroxy 19.7 ng/mL (29.95-100.01)
[2018-05-24 14:54] LABS: BUN 23 mg/dL (7-18); Creatinine, Serum 1.96 mg/dL (0.70-1.30); EST Glomerular Filtration Rate 35 mL/min (>60); Glucose 150 mg/dL (74-106)
[2018-05-24 14:55] LABS: ALB/GLOB Ratio 1.1 RATIO (0.9-2.4); AST(SGOT) 32 U/L (15-37); Alanine Aminotransfer ALT/SGPT 41 U/L (16-61); Albumin, Serum 3.4 g/dL (3.2-5.0); Alkaline Phosphatase 119 U/L (45-117); Anion Gap 6 (5-15); BUN/Creat Ratio 11.7 RATIO (10-20); Calcium,Total 7.9 mg/dL (8.5-10.1); Chloride 111 mmol/L (98-107); Est Glom Filt Rate - Afr Amer 43 mL/min (>60); POSITIVE COUNT NO; POSITIVE DIFFERENTIAL NO; POSITIVE MORPHOLOGY NO; Phosphorus 3.6 mg/dL (2.5-4.9); Potassium 4.1 mmol/L (3.5-5.1); Protein, Total 6.4 g/dL (6.4-8.2); Sodium Level 143 mmol/L (136-145); Thyroid Stim Hormone (TSH) 2.43 uIU/mL (0.358-3.74)
== END ==
PROVIDERS: Family Provider Family Medicine Geriatric Medicine; PCP Family Medicine Geriatric Medicine; Visit Provider Internal Medicine Nephrology
DX: E11.9 Type 2 diabetes mellitus without complications (principal); E55.9 Vitamin D deficiency, unspecified; I10 Essential (primary) hypertension; N17.9 Acute kidney failure, unspecified; R68.83 Chills (without fever)
CPT/HCPCS: 36415; 80053; 82306; 84100; 84443; 85025; 87633

== ENCOUNTER → 2018-06-14 16:50 | Outpatient (CLI) | payer MEDICARE, SELFPAY ==
[2018-06-14 17:40] LABS: Anion Gap 7 (5-15); BUN 22 mg/dL (7-18); BUN/Creat Ratio 12.1 RATIO (10-20); Calcium,Total 8.2 mg/dL (8.5-10.1); Chloride 113 mmol/L (98-107); Creatinine, Serum 1.82 mg/dL (0.70-1.30); EST Glomerular Filtration Rate 38 mL/min (>60); Est Glom Filt Rate - Afr Amer 46 mL/min (>60); Glucose 125 mg/dL (74-106); Potassium 4.2 mmol/L (3.5-5.1); Sodium Level 146 mmol/L (136-145)
== END ==
PROVIDERS: Family Provider Family Medicine Geriatric Medicine; PCP Family Medicine Geriatric Medicine; Visit Provider Family Medicine Geriatric Medicine
DX: N18.4 Chronic kidney disease, stage 4 (severe) (principal)
CPT/HCPCS: 36415; 80048

== ENCOUNTER → 2018-08-04 | Outpatient (CLI) | payer MEDICARE, SELFPAY | END | disposition home or self-care (01) | LOC: PSN 15:36 | PROVIDERS: Family Provider Family Medicine Geriatric Medicine; PCP Family Medicine Geriatric Medicine; Referring Provider Family Medicine Geriatric Medicine; Visit Provider Family Medicine Geriatric Medicine | DX: R50.9 Fever, unspecified (principal) | CPT/HCPCS: 87633 ==

== ENCOUNTER 2018-08-06 11:36 | Emergency (ER) | payer MEDICARE, SELFPAY ==
[2018-08-06 11:38] VITALS: BP 165/87; PULSE 54; RESP 16; TEMP 36.4; O2SAT 99; BMI 22.7
[2018-08-06 11:40] VITALS: BP 170/88; PULSE 43; RESP 18
--- NOTE | 2018-08-06 12:13 | RAD_ITS ---
STUDY: X-RAY CHEST REASON FOR EXAM: Male, 82 years old. Cough TECHNIQUE: PA and lateral views of the chest. COMPARISON: 10/21/2017 FINDINGS: The lungs are clear and expanded. There is no demonstrated pleural abnormality. There is borderline cardiomegaly. Normal mediastinum and lona. Normal visualized pulmonary arteries. Normal visualized aortic arch and descending thoracic aorta. Normal visualized thoracic spine. Normal visualized ribs, clavicles, and shoulders. There is no demonstrated abnormality of the visualized soft tissue structures of the upper abdomen. RAD/Chest PA and Lateral IMPRESSION: Normal x-ray examination of the chest. Electronically Signed: Eric Luke DO at 12:37 EDT Tel , Service support ,
--- NOTE | 2018-08-06 12:15 | ED.DCSUM_ITS ---
- ER Visit Summary Date of Service: 08/06/18 Chief Complaint: Chest pain History of Present Illness: The patient is a 82 M who presents with chest pain. He complains of his left lower chest being sore for about 1 week. He also reports chills. He has had a fever of 101. He complains of congestion and r hinorrhea. He states he feels a little bit short of breath. He complains of postnasal drainage. He has noticed some blood in his sputum. His pain is worse with movement of the torso coughing or palpation. No vomiting or diarrhea. He saw his primary care physician yesterday and was diagnosed with bronchitis and put on a cough suppressant and prednisone. Physical Examination: Blood pressure 165/87 heart rate 54 afebrile No distress Heart regular bradycardia Lungs are clear I do not appreciate rales rhonchi or wheezing no respiratory distress or increased work of breathing Patient does have left lower chest tenderness no rash Abdomen soft Palpable symmetric radial pulses Alert Test Results: EKG shows sinus bradycardia at a rate of 56. CBC BMP notable for BUN 24, creatinine 1.79, hemoglobin 11.8. Chest x-ray is normal. Emergency Department Course and Treatment: Work-up as above is unremarkable. History examination work-up is consistent with bronchitis with chest wall strain. He was advised on supportive care including Tylenol. Patient discharged. Treatment Plan: [] Disposition: Discharge Impression: Bronchitis Chest wall pain This note was generated with [employer] dictation software. It may contain incorrect words, spelling, and punctuation that were not noted in review of the chart prior to signing ED Disposition - Plan for ED Patient: Referrals: Kieran Gary Chi, MD [Primary Care Provider] -
[2018-08-06 12:33] LABS: Absolute Lymphocyte Count 0.97 X10^3/ul (0.83-4.51); Absolute Neutrophil Count 3.8 X10^3/uL (2.0-7.7); Basophil# 0.06 X10^3/uL; Basophil% 1.1 % (0-1); Eosinophil# 0.15 X10^3/uL; Eosinophils% 2.7 % (0-5); Hematocrit 35.4 % (40-54); Hemoglobin 11.8 g/dl (13.0-16.5); Lymphocyte # 0.97 X10^3/ul (4.0); Lymphocyte % 17.7 % (19-41); Mean Corp Hgb Conc 33.3 g/gl (32-36); Mean Corpuscular Hgb 31.5 pg (27.0-32.0); Mean Corpuscular Volume 94.4 fL (80-94); Monocyte# 0.46 X10^3/uL; Monocyte% 8.4 % (0-10); Neutrophil # 3.84 X10^3/uL (2.7-7.7); Neutrophil % 69.9 % (47-70); Platelet Count 219 K/mm3 (150-450); RBC Distribution Width CV 13.6 % (11.6-14.6); RBC Distribution Width SD 46.7 fl (35.1-43.9); Red Blood Count 3.75 M/mm3 (4.6-6.2); White Blood Count 5.5 K/mm3 (4.4-11.0)
[2018-08-06 12:34] LABS: POSITIVE COUNT NO; POSITIVE DIFFERENTIAL NO; POSITIVE MORPHOLOGY NO
--- NOTE | 2018-08-06 12:42 | EKG12_ITS ---
Test Reason : CP Blood Pressure : / mmHG Vent. Rate : 056 BPM Atrial Rate : 056 BPM P-R Int : 136 ms QRS Dur : 090 ms QT Int : 422 ms P-R-T Axes : 020 -01 016 degrees QTc Int : 407 ms Sinus bradycardia with marked sinus arrhythmia with occasional Premature ventricular complexes Otherwise normal ECG Confirmed by BOBO PALACIOS, TRISHA ([id number]), manuscript editor LORI MIX ([id number]) on 08/10/2018 1:36:51 PM Referred By: Kieran Gary Confirmed By:TRISHA BROUSSARD MD
[2018-08-06 12:46] LABS: Anion Gap 3 (5-15); BUN 24 mg/dL (7-18); BUN/Creat Ratio 13.4 RATIO (10-20); Calcium,Total 8.5 mg/dL (8.5-10.1); Chloride 110 mmol/L (98-107); Creatinine, Serum 1.79 mg/dL (0.70-1.30); EST Glomerular Filtration Rate 39 mL/min (>60); Est Glom Filt Rate - Afr Amer 47 mL/min (>60); Estimated Creatinine Clearance 32.52 ml/min; Glucose 95 mg/dL (74-106); Potassium 5.1 mmol/L (3.5-5.1); Sodium Level 141 mmol/L (136-145)
--- NOTE | 2018-08-06 13:05 | ED.DEP ---
ED Disposition - Plan for ED Patient: Instructions: Acute Bronchitis, ED Strain Chest Wall Referrals: Kieran Gary Chi, MD [Primary Care Provider] -
[2018-08-06 13:21] VITALS: BP 124/73; PULSE 44; RESP 12; O2SAT 97
== END 2018-08-06 13:22 | disposition home or self-care (01) ==
PROVIDERS: Emergency Provider Emergency Medicine; Family Provider Family Medicine Geriatric Medicine; PCP Family Medicine Geriatric Medicine
DX: J40 Bronchitis, not specified as acute or chronic (principal); R07.89 Other chest pain; K21.9 Gastro-esophageal reflux disease without esophagitis; I10 Essential (primary) hypertension; Z79.899 Other long term (current) drug therapy
CPT/HCPCS: 71046; 80048; 85025; 93005; 99283; A4216

== ENCOUNTER → 2018-10-27 | Outpatient (CLI) | payer MEDICARE, SELFPAY ==
[2018-10-27 11:37] LABS: Albumin, Serum 3.2 g/dL (3.2-5.0); BUN 18 mg/dL (7-18); BUN/Creat Ratio 10.6 RATIO (10-20); Calcium,Total 8.2 mg/dL (8.5-10.1); Chloride 108 mmol/L (98-107); EST Glomerular Filtration Rate 41 mL/min (>60); Est Glom Filt Rate - Afr Amer 50 mL/min (>60); Glucose 123 mg/dL (74-106); Phosphorus 3.4 mg/dL (2.5-4.9); Potassium 3.9 mmol/L (3.5-5.1); Sodium Level 141 mmol/L (136-145)
[2018-10-27 11:48] LABS: Vitamin D,25 Hydroxy 34.1 ng/mL (29.95-100.01)
== END | disposition home or self-care (01) ==
LOC: POLAB3 10:07
PROVIDERS: Family Provider Family Medicine Geriatric Medicine; PCP Family Medicine Geriatric Medicine; Visit Provider Internal Medicine Nephrology
DX: N18.3 Chronic kidney disease, stage 3 (moderate) (principal); E55.9 Vitamin D deficiency, unspecified
CPT/HCPCS: 36415; 80069; 82306

== ENCOUNTER → 2018-12-30 10:00 | Outpatient (CLI) | payer MEDICARE, SELFPAY ==
--- NOTE | 2018-12-30 11:02 | RAD_ITS ---
STUDY: X-RAY - LEFT HAND REASON FOR EXAM: Male, 83 years old. Painful lump of the palmar aspect of the hand at the base of the fourth metacarpal. TECHNIQUE: 4 view(s) of the hand. COMPARISON: None. FINDINGS: Normal radiocarpal articulation. Normal distal radioulnar joint. Normal visualized carpal bones. Normal carpal articulations Normal carpometacarpal articulation of the thumb. Normal second through fifth carpometacarpal joints. Normal metacarpi. Normal metacarpophalangeal joint of the thumb. Normal interphalangeal joint of the thumb. Normal proximal and distal phalanges of the thumb. Normal metacarpophalangeal joints of the second through fifth fingers. Normal proximal and distal interphalangeal joints of the second through fifth fingers. Normal phalanges of the second through fifth fingers. The soft tissue structures are unremarkable. RAD/Hand Min 3 Views IMPRESSION: Normal x-ray examination of the hand. Electronically Signed: Andrew Soto MD at 21:30 EDT , Service support ,
[2018-12-30 11:43] LABS: Absolute Lymphocyte Count 1.14 X10^3/uL (0.83-4.51); Absolute Neutrophil Count 3.8 X10^3/uL (2.0-7.7); Basophil# 0.06 X10^3/uL; Basophil% 1.1 % (0-1); Eosinophil# 0.14 X10^3/uL; Eosinophils% 2.5 % (0-5); Hematocrit 34.3 % (40-54); Hemoglobin 11.2 g/dL (13.0-16.5); Lymphocyte # 1.14 X10^3/ul (4.0); Mean Corp Hgb Conc 32.7 g/dL (32-36); Mean Corpuscular Hgb 31.4 pg (27.0-32.0); Mean Corpuscular Volume 96.1 fL (80-94); Mean Platelet Vol. 11.3 fl (6.2-12.0); Monocyte# 0.52 X10^3/uL; Monocyte% 9.1 % (0-10); NRBC Flagged by Analyzer 0 % (0-5); Neutrophil # 3.83 X10^3/uL (2.7-7.7); Neutrophil % 67.1 % (47-70); Platelet Count 197 K/mm3 (150-450); RBC Distribution Width CV 13.1 % (11.6-14.6); RBC Distribution Width SD 45.8 fl (35.1-43.9); Red Blood Count 3.57 M/mm3 (4.6-6.2); White Blood Count 5.7 K/mm3 (4.4-11.0)
[2018-12-30 12:00] LABS: Vitamin D,25 Hydroxy 42.5 ng/mL (29.95-100.01)
[2018-12-30 12:01] LABS: AST(SGOT) 44 U/L (15-37); Alanine Aminotransfer ALT/SGPT 41 U/L (16-61); Albumin, Serum 3.2 g/dL (3.2-5.0); Alkaline Phosphatase 138 U/L (45-117); Anion Gap 3 (5-15); BUN 20 mg/dL (7-18); BUN/Creat Ratio 10.6 RATIO (10-20); Calcium,Total 8.3 mg/dL (8.5-10.1); Chloride 111 mmol/L (98-107); Creatinine, Serum 1.88 mg/dL (0.70-1.30); EST Glomerular Filtration Rate 37 mL/min (>60); Est Glom Filt Rate - Afr Amer 45 mL/min (>60); Globulin 3.2 g/dL (2.2-4.2); Glucose 90 mg/dL (74-106); Potassium 4.9 mmol/L (3.5-5.1); Protein, Total 6.4 g/dL (6.4-8.2); Sodium Level 141 mmol/L (136-145); Thyroid Stim Hormone (TSH) 1.52 uIU/mL (0.358-3.74)
== END ==
LOC: POLAB3 10:01 → RAD 11:00
PROVIDERS: Family Provider Family Medicine Geriatric Medicine; PCP Family Medicine Geriatric Medicine; Referring Provider Family Medicine Geriatric Medicine; Visit Provider Family Medicine Geriatric Medicine
DX: M79.642 Pain in left hand (principal); E11.9 Type 2 diabetes mellitus without complications; E55.9 Vitamin D deficiency, unspecified; I10 Essential (primary) hypertension
CPT/HCPCS: 36415; 73130; 80053; 82306; 84443; 85025

== ENCOUNTER → 2019-03-09 10:49 | Outpatient (CLI) | payer MEDICARE, SELFPAY ==
[2019-03-09 12:29] LABS: Absolute Lymphocyte Count 0.93 X10^3/uL (0.83-4.51); Absolute Neutrophil Count 4.5 X10^3/uL (2.0-7.7); Basophil# 0.04 X10^3/uL; Basophil% 0.7 % (0-1); Eosinophil# 0.12 X10^3/uL; Hematocrit 33.8 % (40-54); Hemoglobin 11.2 g/dL (13.0-16.5); Lymphocyte # 0.93 X10^3/ul (4.0); Lymphocyte % 15.2 % (19-41); Mean Corp Hgb Conc 33.1 g/dL (32-36); Mean Corpuscular Hgb 31.5 pg (27.0-32.0); Mean Corpuscular Volume 95.2 fL (80-94); Mean Platelet Vol. 11.4 fl (6.2-12.0); Monocyte# 0.46 X10^3/uL; Monocyte% 7.5 % (0-10); NRBC Flagged by Analyzer 0 % (0-5); Neutrophil # 4.54 X10^3/uL (2.7-7.7); Neutrophil % 74.1 % (47-70); Platelet Count 202 K/mm3 (150-450); RBC Distribution Width SD 45.2 fl (35.1-43.9); Red Blood Count 3.55 M/mm3 (4.6-6.2); White Blood Count 6.1 K/mm3 (4.4-11.0)
[2019-03-09 12:48] LABS: ALB/GLOB Ratio 1.1 RATIO (0.9-2.4); AST(SGOT) 24 U/L (15-37); Alanine Aminotransfer ALT/SGPT 25 U/L (16-61); Albumin, Serum 3.1 g/dL (3.2-5.0); Alkaline Phosphatase 105 U/L (45-117); Anion Gap 5 (5-15); BUN 23 mg/dL (7-18); BUN/Creat Ratio 12.4 RATIO (10-20); Calcium,Total 8.1 mg/dL (8.5-10.1); Chloride 112 mmol/L (98-107); Creatinine, Serum 1.86 mg/dL (0.70-1.30); EST Glomerular Filtration Rate 37 mL/min (>60); Est Glom Filt Rate - Afr Amer 45 mL/min (>60); Globulin 2.7 g/dL (2.2-4.2); Glucose 89 mg/dL (74-106); Phosphorus 3.2 mg/dL (2.5-4.9); Potassium 4.4 mmol/L (3.5-5.1); Protein, Total 5.8 g/dL (6.4-8.2); Sodium Level 143 mmol/L (136-145); Thyroid Stim Hormone (TSH) 1.58 uIU/mL (0.358-3.74)
[2019-03-09 13:12] LABS: PTHIN 56.9 pg/mL (18.4-80.1)
== END ==
PROVIDERS: Family Provider Family Medicine Geriatric Medicine; PCP Family Medicine Geriatric Medicine; Visit Provider Internal Medicine Nephrology
DX: I12.9 Hypertensive chronic kidney disease with stage 1 through stage 4 chronic kidney disease, or unspecified chronic kidney disease (principal); N18.3 Chronic kidney disease, stage 3 (moderate); E55.9 Vitamin D deficiency, unspecified; E11.22 Type 2 diabetes mellitus with diabetic chronic kidney disease
CPT/HCPCS: 36415; 80053; 82306; 83970; 84100; 84443; 85025

== ENCOUNTER 2019-05-07 06:34 | Emergency (ER) | payer MEDICARE, SELFPAY ==
[2019-05-07 06:35] VITALS: BP 178/114; PULSE 62; RESP 18; TEMP 36.5; O2SAT 96; BMI 23.1
[2019-05-07 07:01] LABS: Absolute Lymphocyte Count 1.09 X10^3/uL (0.83-4.51); Absolute Neutrophil Count 6.4 X10^3/uL (2.0-7.7); Basophil# 0.05 X10^3/uL; Basophil% 0.6 % (0-1); Eosinophil# 0.11 X10^3/uL; Eosinophils% 1.3 % (0-5); Hematocrit 40.7 % (40-54); Hemoglobin 13.2 g/dL (13.0-16.5); Lymphocyte # 1.09 X10^3/ul (4.0); Lymphocyte % 13.1 % (19-41); Mean Corp Hgb Conc 32.4 g/dL (32-36); Mean Corpuscular Hgb 31.2 pg (27.0-32.0); Mean Corpuscular Volume 96.2 fL (80-94); Mean Platelet Vol. 11.2 fl (6.2-12.0); Monocyte# 0.62 X10^3/uL; Monocyte% 7.5 % (0-10); NRBC Flagged by Analyzer 0 % (0-5); Neutrophil # 6.41 X10^3/uL (2.7-7.7); Neutrophil % 77.1 % (47-70); Platelet Count 167 K/mm3 (150-450); RBC Distribution Width CV 13.4 % (11.6-14.6); RBC Distribution Width SD 47.6 fl (35.1-43.9); Red Blood Count 4.23 M/mm3 (4.6-6.2); White Blood Count 8.3 K/mm3 (4.4-11.0)
[2019-05-07 07:10] LABS: Anion Gap 5 (5-15); BUN 18 mg/dL (7-18); BUN/Creat Ratio 9.3 RATIO (10-20); Chloride 113 mmol/L (98-107); Creatinine, Serum 1.93 mg/dL (0.70-1.30); EST Glomerular Filtration Rate 36 mL/min (>60); Est Glom Filt Rate - Afr Amer 43 mL/min (>60); Estimated Creatinine Clearance 30.02 ml/min; Glucose 124 mg/dL (74-106); Potassium 4.4 mmol/L (3.5-5.1); Sodium Level 144 mmol/L (136-145)
--- NOTE | 2019-05-07 07:14 | CT_ITS ---
STUDY: CT ABDOMEN AND PELVIS WITHOUT CONTRAST REASON FOR EXAM: Male, 83 years old. SEVERE ABD PAIN, NAUSEA, PREV HIATAL HERNIA REPAIR, HUNTER, HX-BPH,HTN, HLD RADIATION DOSAGE (If Supplied By Facility): CTDIvol = ( 6.92 ) mGy, DLP = ( 338.79 ) mGycm TECHNIQUE: Transaxial images were obtained from the dome of the diaphragm to the symphysis pubis without oral contrast, and without intravenous contrast. Sagittal and coronal images were reconstructed. Individualized dose optimization techniques were used for this CT. COMPARISON: None. FINDINGS: The visualized portions of lung bases demonstrate mild stranding/scarring. The heart is borderline in size. There are small punctate hypodensities in the anterior pericardium undetermined etiology and may represent fat or gas. Vague similar densities were seen on previous exam of 2013. Normal liver. There are surgical clips in the gallbladder fossa consistent with a prior cholecystectomy. Normal spleen. Normal pancreas. Normal bilateral adrenal glands. There is mild right hydronephrosis and hydroureter. There is a 4 mm stone in the right ureterovesical junction. There is mild right perinephric stranding. There is a 3 mm nonobstructing stone in the upper pole of the left kidney. There is no evidence of left hydronephrosis. There is a cyst in the lateral aspect of the left kidney measuring about 3 cm. There is a small hiatal hernia. The stomach is somewhat distended. There are nonspecific fluid-filled small bowel loops. There is no evidence of bowel obstruction. There is fecal retention. There is no evidence of acute diverticulitis. There is non-visualization of the appendix. There is diffuse atherosclerotic calcification of the abdominal aorta with elongation and tortuosity, but without a demonstrated aneurysm. There is an IVC filter in place. Normal retroperitoneum. The bladder is not well-distended. There is a Castellano catheter in the bladder and small pocket of air in the bladder. The prostate is markedly enlarged. Surgical clips are seen in the right lower quadrant. Normal osseous structures. CT/Abdomen/Pelvis without Cont IMPRESSION: 1. Questionable small densities in the anterior pericardium as described above of undetermined etiology and significance. 2. Mild right hydronephrosis due to 4 mm stone in the right ureterovesical junction. 3. Enlarged prostate indenting the bladder. 4. Small hiatal hernia. 5. Status post cholecystectomy. 6. IVC filter in place Electronically Signed: Chon Luther MD at 8:58 EST Tel , Service support ,
--- NOTE | 2019-05-07 07:16 | ED.DCSUM_ITS ---
History of Present Illness Chief Complaint: Abd Pain Informant: Patient - Abdominal Pain/Flank Pain Onset: Hours - 5-7 Context: Sudden Onset - while sleeping; gradually worse Timing: Continuous Quality: Aching Location: - - suprapubic Current Severity: Moderate Maximum Severity: Moderate Worsened by: Nothing Relieved by: Nothing - Nausea/Vomiting/Emesis GI Symptom: Nausea. Negative for: Vomiting - Diarrhea/Melena/Hematochezia GI Symptom: - - had small BM around 1am (6 hrs ago), no change in sx afterwards. Negative for: Diarrhea, Melena, Hematochezia Associated Symptoms: - - unable to urinate Narrative: Patient has been able to urinate before this morning, the last time he urinated was 9 PM before he went to bed, he states he woke up just after midnight to urinate and was unable to go. He feels like he has a full bladder and is unable to empty it. Symptoms have progressed till this morning, still not able to urinate. States he has a history of an enlarged prostate but was able to make a good stream of urine until this happened. He denies any hematuria. No recent injury. No radiation into his back. No fevers. Some nausea but no vomiting, he states he had a surgery that made vomiting and possible, related to some type of hernia repair. Unknown if he had a Winter when I asked him directly. He has had some herniorrhaphies in his inguinal area as well but no other abdominal surgeries. - Past Medical History (1) Hypertension Status: Chronic (2) BPH (benign prostatic hyperplasia) Status: Chronic Past Medical History - Allergies and Home Meds Allergies/Adverse Reactions: Allergies No Known Allergies Allergy (Verified 05/07/19 06:35) Primary Care Physician: Kieran Gary Chi, MD [Primary Care Provider] - Surgical History: herniorrhaphy Lives: Spouse/ Significant Other Smoking Status: Never smoker Review of Systems General: Denies: Chills, Fever, Sweats Eyes: Denies: Visual changes - bilaterally, Diplopia ENT: Denies: Bilateral ear pain, Rhinorrhea, Sore throat Cardiovascular: Denies: Chest pain, Palpitations Respiratory: Denies: Dyspnea, Cough, Dyspnea on exertion Gastrointestinal: Reports: Abdominal pain, Nausea. Denies: Vomiting, Diarrhea, Melena, Hematochezia Genitourinary: Reports: - - urinary retention. Denies: Dysuria, Hematuria, Fr equency Musculoskeletal: Denies: Back pain, Swelling, Extremity Pain Skin: Denies: Rash, Wounds Neurological: Denies: Headache, Weakness, Numbness Physical Exam Vital Signs/Narrative: Vital Signs Temp Pulse Resp BP Pulse Ox 05/07/19 06:35 97.7 F L 62 18 178/114 H 96 Inital Vital Signs reviewed: Yes General: Well nourished, Well developed, No Acute Distress Head: Normocephalic, Atraumatic Eyes: Perrl, EOMI ENT: Moist mucous membranes, No rhinorrhea Neck: Supple, Nontender Cardiovascular: Regular rate, Regular rhythm, No murmurs Respiratory: No distress, CTA bilaterally, Chest nontender Abdomen: Soft, Nondistended, Normal bowel sounds, Tender - diffusely. Negative for: Guarding, Rebound tenderness, Pulsatile mass Back: Normal Inspection, CVA tenderness - mild, right only Extremities: Nontender, No edema Skin: Normal color, No rash, No Trauma Neurological: Alert, Oriented x3, Cranial nerves II-XII grossly intact, Normal Strength, Normal Sensation Psychological: Normal affect, Normal Mood Diagnostic/Tx/Re-eval Impressions Abdomen/Pelvis CT 05/07/19 07:14 IMPRESSION: 1. Questionable small densities in the anterior pericardium as described above of undetermined etiology and significance. 2. Mild right hydronephrosis due to 4 mm stone in the right ureterovesical junction. 3. Enlarged prostate indenting the bladder. 4. Small hiatal hernia. 5. Status post cholecystectomy. 6. IVC filter in place Electronically Signed: Chon Luther MD at 8:58 EST Tel , Service support , 05/07/19 07:14 Abdomen/Pelvis without Cont [CT] Stat Laboratory Results 05/07/19 05/07/19 05/07/19 06:25 06:25 07:50 WBC 8.3 RBC 4.23 L Hgb 13.2 Hct 40.7 MCV 96.2 H MCH 31.2 MCHC 32.4 RDW Std Deviation 47.6 H RDW Coeff of Fitz 13.4 Plt Count 167 MPV 11.2 Immature Gran % (Auto) 0.400 Neut % (Auto) 77.1 H Lymph % (Auto) 13.1 L [place] % (Auto) 7.5 Eos % (Auto) 1.3 Baso % (Auto) 0.6 Absolute Neuts (auto) 6.4 Absolute Lymphs (auto) 1.09 Nucleated RBC % 0 Sodium 144 Potassium 4.4 Chloride 113 H Carbon Dioxide 26.0 Anion Gap 5 BUN 18 Creatinine 1.93 H Estim Creat Clear Calc 30.02 Est GFR (MDRD) Af Amer 43 L Est GFR (MDRD) Non-Af 36 L BUN/Creatinine Ratio 9.3 L Glucose 124 H Calcium 9.0 Total Bilirubin 0.20 AST 42 H ALT 45 Alkaline Phosphatase 136 H Total Protein 7.2 Albumin 3.9 Globulin 3.3 Albumin/Globulin Ratio 1.2 Urine Color Yellow Urine Clarity Clear Urine pH 5.0 Ur Specific [place] 1.015 Urine Protein 100 H Urine Glucose (UA) Normal Urine Ketones Negative Urine Occult Blood 250 H Urine Nitrite Negative Urine Bilirubin Negative Urine Urobilinogen Normal Ur Leukocyte Esterase Negative Urine RBC 5-10 SEEN Urine WBC 0-5 SEEN Ur Squamous Epith Cells 0 SEEN Amorphous Sediment 1+ Urine Bacteria 1+ Urine Mucus 0 SEEN - Medical Decision Making Patient sounded like he was having acute urinary retention, so Castellano catheter was placed, but after evaluating him for several hours, we had a total of 250- 300 cc in the bag. He was also given morphine, and I did a CT scan, which showed the above results. On reevaluation with a Castellano in and urine in the bag, he is still having some pain but he is tolerating it well. I suspect the kidney stone that is at his right UVJ is causing the symptoms and simulating urinary retention. In discussing all of this with the family and patient, they are comfortable with discontinuing the Castellano catheter and discharging home with symptomatic expectant treatment/management, following up with urology. He used to see Dr. Parsons so he will follow-up with Dr. Simeon, and he is in pain management with Percocet at home which he already has. He will be given an additional Percocet here, urinary strainers to go, and we discussed reasons to return and they are comfortable with that plan. ED Disposition - Plan for ED Patient: Disposition: Home or Assisted Living Diagnosis: Ureteral colic, Urolithiasis Instructions: KIDNEY STONE w/ Colic, Urine Strainer Referrals: Abdirahman,Kieran Chi, MD [Primary Care Provider] - Valdez Simeon MD [STAFF PHYSICIAN] - 1 Week if not improving
[2019-05-07] MEDS: Lidocaine Jelly 2% 20 ML Syringe (URO-JET) 20 APPLIC TOPICAL (07:39)
[2019-05-07] MEDS: Ondansetron 4 MG/2 ML Vial IV (07:39)
[2019-05-07] MEDS: Morphine 2 MG/ML Syringe IV (07:39)
[2019-05-07] MEDS: 0.9% Normal Saline 1,000 ML 1000 ML IV (07:40)
[2019-05-07 07:44] LABS: ALB/GLOB Ratio 1.2 RATIO (0.9-2.4); AST(SGOT) 42 U/L (15-37); Alanine Aminotransfer ALT/SGPT 45 U/L (16-61); Albumin, Serum 3.9 g/dL (3.2-5.0); Alkaline Phosphatase 136 U/L (45-117); Globulin 3.3 g/dL (2.2-4.2); Protein, Total 7.2 g/dL (6.4-8.2)
[2019-05-07 07:55] LABS: Mucous, Urine 0 SEEN /hpf (<or=2+); Squamous Epithelial Cells - UA 0 SEEN /hpf (0-5)
[2019-05-07 07:58] LABS: Color, Urine Yellow (Yellow); Glucose, Dipstick Normal (Normal); Ketone-Dipstick Negative (Negative); Leukocyte Esterase-Dipstick Negative /ul (Negative); Nitrite-Dipstick Negative (Negative); Occult Blood-Urine 250 /ul (Negative); Protein-Dipstick 100 mg/dl (Negative); Specific Gravity, Urine 1.015 (1.002-1.030); Urine Bilirubin Dipstick Negative (Negative); Urine Clarity Clear (Clear); Urine Urobilinogen Normal (Normal)
[2019-05-07 08:05] LABS: Amorphous Sediment 1+; Bacteria 1+ /hpf (None Seen); Red Blood Cells-Urine 5-10 SEEN /hpf (0-5); White Blood Cells 0-5 SEEN /hpf (0-5)
[2019-05-07 08:44] VITALS: BP 173/85; PULSE 43; RESP 18
[2019-05-07 10:07] VITALS: BP 168/86; PULSE 40; RESP 12
[2019-05-07] MEDS: oxyCODONE 5 MG Tablet PO (10:26)
[2019-05-07 10:46] VITALS: BP 158/81; PULSE 42; RESP 16; O2SAT 98
== END 2019-05-07 10:48 | disposition home or self-care (01) ==
PROVIDERS: Emergency Provider Emergency Medicine; PCP Family Medicine Geriatric Medicine; Referring Provider Family Medicine Geriatric Medicine
DX: N13.2 Hydronephrosis with renal and ureteral calculous obstruction (principal); N40.0 Benign prostatic hyperplasia without lower urinary tract symptoms; K44.9 Diaphragmatic hernia without obstruction or gangrene; I10 Essential (primary) hypertension; Z90.49 Acquired absence of other specified parts of digestive tract; Z79.899 Other long term (current) drug therapy
CPT/HCPCS: 51702; 74176; 80053; 81001; 85025; 96361; 96374; 96375; 99285; A4216; J2405

== ENCOUNTER → 2019-05-16 | Outpatient (CLI) | payer MEDICARE, SELFPAY ==
[2019-05-07 06:35] VITALS: BMI 23.1
== END | disposition home or self-care (01) ==
PROVIDERS: PCP Family Medicine Geriatric Medicine; Referring Provider Urology; Visit Provider Urology
DX: N20.9 Urinary calculus, unspecified (principal)
CPT/HCPCS: 82360

== ENCOUNTER → 2019-10-13 11:53 | Outpatient (CLI) | payer MEDICARE, SELFPAY ==
[2019-10-13 12:18] LABS: Absolute Lymphocyte Count 1.07 X10^3/uL (0.83-4.51); Absolute Neutrophil Count 3.5 X10^3/uL (2.0-7.7); Basophil# 0.05 X10^3/uL; Eosinophil# 0.08 X10^3/uL; Eosinophils% 1.6 % (0-5); Hematocrit 37.8 % (40-54); Hemoglobin 12.1 g/dL (13.0-16.5); Lymphocyte # 1.07 X10^3/ul (4.0); Lymphocyte % 21.1 % (19-41); Mean Corpuscular Hgb 30.9 pg (27.0-32.0); Mean Corpuscular Volume 96.7 fL (80-94); Mean Platelet Vol. 11.1 fl (6.2-12.0); Monocyte# 0.39 X10^3/uL; Monocyte% 7.7 % (0-10); NRBC Flagged by Analyzer 0 % (0-5); Neutrophil # 3.47 X10^3/uL (2.7-7.7); Neutrophil % 68.4 % (47-70); Platelet Count 177 K/mm3 (150-450); RBC Distribution Width CV 14.2 % (11.6-14.6); RBC Distribution Width SD 49.4 fl (35.1-43.9); Red Blood Count 3.91 M/mm3 (4.6-6.2); White Blood Count 5.1 K/mm3 (4.4-11.0)
[2019-10-13 12:36] LABS: AST(SGOT) 30 U/L (15-37); Alanine Aminotransfer ALT/SGPT 33 U/L (16-61); Albumin, Serum 3.2 g/dL (3.2-5.0); Alkaline Phosphatase 129 U/L (45-117); Anion Gap 5 (5-15); BUN 23 mg/dL (7-18); BUN/Creat Ratio 12.2 RATIO (10-20); Calcium,Total 8.1 mg/dL (8.5-10.1); Chloride 111 mmol/L (98-107); Creatinine, Serum 1.88 mg/dL (0.70-1.30); EST Glomerular Filtration Rate 37 mL/min (>60); Est Glom Filt Rate - Afr Amer 44 mL/min (>60); Globulin 3.3 g/dL (2.2-4.2); Glucose 91 mg/dL (74-106); Potassium 3.7 mmol/L (3.5-5.1); Protein, Total 6.5 g/dL (6.4-8.2); Sodium Level 143 mmol/L (136-145)
== END ==
PROVIDERS: PCP Family Medicine Geriatric Medicine; Visit Provider Family Medicine Geriatric Medicine
DX: R19.7 Diarrhea, unspecified (principal)
CPT/HCPCS: 36415; 80053; 85025

== ENCOUNTER → 2019-10-13 14:23 | Outpatient (CLI) | payer MEDICARE, SELFPAY ==
--- NOTE | 2019-10-13 14:27 | CT_ITS ---
STUDY: CT ABDOMEN AND PELVIS WITH CONTRAST REASON FOR EXAM: Male, 83 years old. PT STATED ABDOM PAIN, HX HIATAL HERNIA, HTN, HUNTER RADIATION DOSAGE (If Supplied By Facility): CTDIvol = ( 15.97 ) mGy, DLP = ( 1456.70 ) mGycm TECHNIQUE: Transaxial images were obtained from the dome of the diaphragm to the symphysis pubis without oral contrast. IV 75mL Isovue-300 was administered. Sagittal and coronal images were reconstructed. Individualized dose optimization techniques were used for this CT. COMPARISON: Comparison is made with prior examination dated May 07, 2019. Stable mild increased markings at the lung bases suggestive of linear atelectasis and/or scarring. FINDINGS: Stable mild increased markings at the lung bases suggestive of linear atelectasis and/or scarring. Coronary artery calcification. Normal liver. There are surgical clips in the gallbladder fossa consistent with a prior cholecystectomy. Normal spleen. Normal pancreas. Normal bilateral adrenal glands. Cortical atrophy of both kidneys. Stable left renal cysts. Tiny calcification upper pole calyx of the right kidney as well as left kidney. Mild right hydronephrosis. There is a small hiatal hernia. Normal small intestine. Normal colon. The appendix is visualized and appears normal. There is diffuse atherosclerotic calcification of the abdominal aorta, without a demonstrated aneurysm. There is an IVC filter in place. Normal retroperitoneum. There is a distended urinary bladder. Marked enlargement of the prostate gland. This causes indentation at the bladder base. The prostate measures 7 cm x 7.1 cm. Normal abdominal wall. There are diffuse degenerative changes of the visualized lumbar spine. CT/Abdomen/Pelvis WITH Contrast IMPRESSION: Distended urinary bladder secondary to markedly enlarged prostate. Small bilateral nonobstructing intrarenal calculi. Stable left renal cysts. Electronically Signed: Roman Joiner, at 15:50 EDT , Service support ,
--- NOTE | 2019-10-13 15:41 | VDLE_ITS ---
Reason For Study: edema Procedure LEFT Exam performed in department. GSV is normal. The exam was abbreviated due to the COVID 19 CFV is compressible, spontaneous, phasic, protocol. competent, and demonstrates normal The exam was diagnostic. augmentation. A preliminary report was called and/or faxed FV is compressible, spontaneous, phasic, to Dr. Gary. competent and demonstrates normal augmentation. POP V is compressible, spontaneous, phasic, competent and demonstrates normal augmentation. T/P Trunk is compressible. PTV is compressible. LT PerV is compressible. Interpretation Summary Deep veins of the left lower extremity are patent and compressible segmentally. There is no evidence of left lower extremity deep vein thrombosis. Valvular competence appears intact within the proximal deep venous system on the left . The left great saphenous vein appears patent and compressible segmentally. Ordering Physician: Kieran Gary Performed By: Arsen Desouza RVT
== END ==
PROVIDERS: PCP Family Medicine Geriatric Medicine; Referring Provider Family Medicine Geriatric Medicine; Visit Provider Family Medicine Geriatric Medicine
DX: K57.32 Diverticulitis of large intestine without perforation or abscess without bleeding (principal); K56.41 Fecal impaction; R19.7 Diarrhea, unspecified; R60.0 Localized edema
CPT/HCPCS: 36415; 74177; 80053; 85025; 93971; Q9967

== ENCOUNTER → 2019-12-22 14:10 | Outpatient (CLI) | payer MEDICARE, SELFPAY ==
[2019-12-22 17:41] LABS: Anion Gap 5 (5-15); BUN 18 mg/dL (7-18); BUN/Creat Ratio 9.9 RATIO (10-20); Calcium,Total 8.2 mg/dL (8.5-10.1); Chloride 111 mmol/L (98-107); Creatinine, Serum 1.82 mg/dL (0.70-1.30); EST Glomerular Filtration Rate 38 mL/min (>60); Est Glom Filt Rate - Afr Amer 46 mL/min (>60); Glucose 91 mg/dL (74-106); Sodium Level 143 mmol/L (136-145)
== END ==
PROVIDERS: PCP Family Medicine Geriatric Medicine; Visit Provider Family Medicine Geriatric Medicine
DX: N18.3 Chronic kidney disease, stage 3 (moderate) (principal)
CPT/HCPCS: 36415; 80048

== ENCOUNTER → 2019-12-23 12:54 | Outpatient (CLI) | payer MEDICARE, SELFPAY ==
--- NOTE | 2019-12-23 12:56 | VDLE_ITS ---
Reason For Study: Localized edema RIGHT LEFT GSV is normal. GSV is normal. CFV is compressible, spontaneous, phasic, CFV is compressible, spontaneous, phasic, competent and demonstrates normal competent, and demonstrates normal augmentation. augmentation. FV is compressible, spontaneous, phasic, FV is compressible, spontaneous, phasic, competent and demonstrates normal competent and demonstrates normal augmentation. augmentation. POP V is compressible, spontaneous, phasic, POP V is compressible, spontaneous, phasic, competent and demonstrates normal competent and demonstrates normal augmentation. augmentation. T/P Trunk is compressible. T/P Trunk is compressible. PTV is compressible. PTV is compressible. RT PerV is compressible. LT PerV is compressible. Procedure Exam performed in department. A preliminary report was called and/or faxed to Abdirahman. Interpretation Summary Deep veins of the lower extremities are bilaterally patent and compressible segmentally. There is no evidence of deep vein thrombosis on either side. Valvular competence appears intact within the proximal deep venous systems bilaterally. The great saphenous veins appear bilaterally patent and compressible segmentally. Ordering Physician: Kieran Gary Referring Physician: Kieran Gary Chi Performed By: Sharon Calvin RVT
== END ==
PROVIDERS: PCP Family Medicine Geriatric Medicine; Referring Provider Family Medicine Geriatric Medicine; Visit Provider Family Medicine Geriatric Medicine
DX: R60.0 Localized edema (principal)
CPT/HCPCS: 93970

== ENCOUNTER → 2020-01-04 09:56 | Outpatient (CLI) | payer MEDICARE, SELFPAY ==
[2020-01-04 11:40] LABS: Absolute Lymphocyte Count 1.08 X10^3/uL (0.83-4.51); Absolute Neutrophil Count 4.1 X10^3/uL (2.0-7.7); Basophil# 0.07 X10^3/uL; Basophil% 1.2 % (0-1); Eosinophil# 0.14 X10^3/uL; Eosinophils% 2.4 % (0-5); Hematocrit 38.4 % (40-54); Hemoglobin 12.4 g/dL (13.0-16.5); Lymphocyte # 1.08 X10^3/ul (4.0); Lymphocyte % 18.4 % (19-41); Mean Corp Hgb Conc 32.3 g/dL (32-36); Mean Platelet Vol. 11.8 fl (6.2-12.0); Monocyte# 0.49 X10^3/uL; Monocyte% 8.4 % (0-10); NRBC Flagged by Analyzer 0 % (0-5); Neutrophil # 4.06 X10^3/uL (2.7-7.7); Neutrophil % 69.3 % (47-70); Platelet Count 198 K/mm3 (150-450); RBC Distribution Width CV 13.6 % (11.6-14.6); RBC Distribution Width SD 48.2 fl (35.1-43.9); White Blood Count 5.9 K/mm3 (4.4-11.0)
[2020-01-04 12:08] LABS: Vitamin D,25 Hydroxy 39.6 ng/mL
[2020-01-04 12:12] LABS: AST(SGOT) 29 U/L (15-37); Alanine Aminotransfer ALT/SGPT 27 U/L (16-61); Albumin, Serum 3.4 g/dL (3.2-5.0); Alkaline Phosphatase 137 U/L (45-117); Anion Gap 3 (5-15); BUN 30 mg/dL (7-18); BUN/Creat Ratio 14.6 RATIO (10-20); Calcium,Total 8.5 mg/dL (8.5-10.1); Chloride 107 mmol/L (98-107); Creatinine, Serum 2.06 mg/dL (0.70-1.30); EST Glomerular Filtration Rate 33 mL/min (>60); Est Glom Filt Rate - Afr Amer 40 mL/min (>60); Globulin 3.3 g/dL (2.2-4.2); Glucose 92 mg/dL (74-106); Potassium 4.4 mmol/L (3.5-5.1); Protein, Total 6.7 g/dL (6.4-8.2); Sodium Level 140 mmol/L (136-145); Thyroid Stim Hormone (TSH) 2.34 uIU/mL (0.358-3.74)
== END ==
PROVIDERS: PCP Family Medicine Geriatric Medicine; Visit Provider Family Medicine Geriatric Medicine
DX: E11.9 Type 2 diabetes mellitus without complications (principal); E55.9 Vitamin D deficiency, unspecified; I10 Essential (primary) hypertension
CPT/HCPCS: 36415; 80053; 82306; 84443; 85025

== ENCOUNTER → 2020-07-04 10:47 | Outpatient (CLI) | payer MEDICARE, SELFPAY ==
[2020-07-04 12:08] LABS: Absolute Lymphocyte Count 1.04 X10^3/uL (0.83-4.51); Absolute Neutrophil Count 5.2 X10^3/uL (2.0-7.7); Basophil# 0.06 X10^3/uL; Basophil% 0.9 % (0-1); Eosinophil# 0.18 X10^3/uL; Eosinophils% 2.6 % (0-5); Hematocrit 37.2 % (40-54); Hemoglobin 11.7 g/dL (13.0-16.5); Lymphocyte # 1.04 X10^3/ul (4.0); Lymphocyte % 15.1 % (19-41); Mean Corp Hgb Conc 31.5 g/dL (32-36); Mean Corpuscular Hgb 31.4 pg (27.0-32.0); Mean Corpuscular Volume 99.7 fL (80-94); Mean Platelet Vol. 11.7 fl (6.2-12.0); Monocyte# 0.41 X10^3/uL; NRBC Flagged by Analyzer 0 % (0-5); Neutrophil # 5.16 X10^3/uL (2.7-7.7); Neutrophil % 74.8 % (47-70); Platelet Count 178 K/mm3 (150-450); RBC Distribution Width SD 51.1 fl (35.1-43.9); Red Blood Count 3.73 M/mm3 (4.6-6.2); White Blood Count 6.9 K/mm3 (4.4-11.0)
[2020-07-04 12:16] LABS: Vitamin D,25 Hydroxy 25.2 ng/mL
[2020-07-04 12:29] LABS: AST(SGOT) 22 U/L (15-37); Alanine Aminotransfer ALT/SGPT 32 U/L (16-61); Albumin, Serum 3.2 g/dL (3.2-5.0); Alkaline Phosphatase 114 U/L (45-117); Anion Gap 5 (5-15); BUN 32 mg/dL (7-18); Calcium,Total 8.3 mg/dL (8.5-10.1); Chloride 113 mmol/L (98-107); EST Glomerular Filtration Rate 34 mL/min (>60); Est Glom Filt Rate - Afr Amer 41 mL/min (>60); Globulin 3.1 g/dL (2.2-4.2); Glucose 102 mg/dL (74-106); Potassium 4.1 mmol/L (3.5-5.1); Protein, Total 6.3 g/dL (6.4-8.2); Sodium Level 145 mmol/L (136-145); Thyroid Stim Hormone (TSH) 2.24 uIU/mL (0.358-3.74)
== END ==
PROVIDERS: PCP Family Medicine Geriatric Medicine; Visit Provider Family Medicine Geriatric Medicine
DX: I10 Essential (primary) hypertension (principal); E55.9 Vitamin D deficiency, unspecified
CPT/HCPCS: 36415; 80053; 82306; 84443; 85025

== ENCOUNTER → 2020-07-30 13:08 | Outpatient (CLI) | payer MEDICARE, SELFPAY ==
--- NOTE | 2020-07-30 13:15 | RAD_ITS ---
STUDY: X-RAY - LUMBAR SPINE REASON FOR EXAM: Male, 84 years old. Radiating low back pain TECHNIQUE: 2 view(s) of the lumbar spine were obtained. COMPARISON: None FINDINGS: Normal lumbar lordosis. There is no substantial scoliosis. There is a normal alignment of the vertebrae. There is multilevel endplate spondylosis of the lumbar vertebrae. There is multi-level degenerative disc disease with multi-level disc space narrowing. There is no demonstrated fracture. There is atherosclerotic calcification of the abdominal aorta without a demonstrated aneurysm. IVC filter noted to the right of the spine, previous cholecystectomy RAD/Lumbar Spine 2 or 3 Views IMPRESSION: Degenerative changes of the spine, as detailed above. Electronically Signed: Hema Giron MD at 10:26 EDT , Service support ,
--- NOTE | 2020-07-30 13:15 | RAD_ITS ---
STUDY: X-RAY - CERVICAL SPINE REASON FOR EXAM: Male, 84 years old. NECK PAIN TECHNIQUE: 3 view(s) of the cervical spine were obtained. COMPARISON: None FINDINGS: Normal anterior atlantoaxial articulation. Normal odontoid process. Normal cervical lordosis. The bones are demineralized with sclerotic endplate changes There is multi-level degenerative disc disease with multilevel disc space narrowing. The soft tissue structures are unremarkable. There is no demonstrated fracture of the cervical spine. RAD/Cerv Spine 2 or 3 Views IMPRESSION: Multilevel degenerative changes, no acute findings Electronically Signed: Hema Giron MD at 10:26 EDT , Service support ,
== END ==
PROVIDERS: PCP Family Medicine Geriatric Medicine; Referring Provider Anesthesiology Pain Medicine; Visit Provider Anesthesiology Pain Medicine
DX: M54.2 Cervicalgia (principal); M54.9 Dorsalgia, unspecified
CPT/HCPCS: 72040; 72100

== ENCOUNTER → 2020-08-27 13:48 | Outpatient (CLI) | payer MEDICARE, SELFPAY ==
[2020-08-27 15:27] LABS: Amphetamine Urine VISTA NEGATIVE (<1000 ng/mL); Barbiturate Urine VISTA NEGATIVE (< 200 ng/mL); Benzodiazepine Urine VISTA NEGATIVE (< 200 ng/mL); Cocaine Urine VISTA NEGATIVE (< 300 ng/mL); Ecstacy Urine VISTA NEGATIVE (< 500 ng/mL); Methadone Urine VISTA NEGATIVE (< 300 ng/mL); PCP Urine VISTA NEGATIVE (< 25 ng/mL); THC Urine VISTA NEGATIVE (< 50 ng/mL); Vista UDS pH Range 6
== END ==
PROVIDERS: PCP Family Medicine Geriatric Medicine; Referring Provider Anesthesiology Pain Medicine; Visit Provider Anesthesiology Pain Medicine
DX: F11.20 Opioid dependence, uncomplicated (principal)
CPT/HCPCS: 80307

== ENCOUNTER 2021-01-04 12:33 | Emergency (ER) | payer MEDICARE, SELFPAY ==
[2021-01-04 12:34] VITALS: BP 142/88; PULSE 48; RESP 16; TEMP 36.8; O2SAT 98; BMI 20.8
--- NOTE | 2021-01-04 13:56 | ED.VIS.LOWEX ---
HPI History of Present Illness Chief Complaint: Lower Extremity Injury Informant: patient and spouse/S.O. Onset/Context/Timing Onset: Weeks Context: Gradual Onset Timing: Continuous Quality of Pain: Sharp Current Severity: Mild Maximum Severity: Mild Associated Symptoms Associated Symptoms: Negative for Parasthesia, Weakness and Loss of Funtion Narrative Narrative: 85-year-old male complaining of left knee pain. States he was kneeling a lot they started getting discomfort and he had a small sore in his knee. Now it is red. He denies fever or chills. No other trauma. He is never had knee surgery. He is not diabetic. Prior similar symptoms: No Recent Illness/Hospitalization: No PFSH PFS Medical History Hypertension Home Medications hydrocodone-acetaminophen 1 tab PO BID PRN PRN 07/02/13 [History Last Taken 10/21/17] lansoprazole [Prevacid] 30 mg PO DAILY 07/02/13 [History Last Taken 10/21/17] rueojvsx-hix-UD-lycopen-lutein [Centrum Silver] 1 ea PO DAILY 07/02/13 [History Last Taken Unknown] clonidine 0.4 mg TOPICAL TU 02/11/14 [History Last Taken 10/21/17] furosemide 40 mg PO DAILY 10/21/17 [History Last Taken 10/21/17] potassium chloride 20 meq PO DAILY #10 packet 10/21/17 [Rx Last Taken Unknown] Buspar 10 mg PO TID 08/06/18 [History Last Taken Unknown] amlodipine 10 mg PO DAILY 08/06/18 [History Last Taken Unknown] escitalopram oxalate 10 mg PO DAILY 08/06/18 [History Last Taken Unknown] mirtazapine [Remeron] 15 mg PO QHS 08/06/18 [History Last Taken Unknown] sucralfate 1 g PO DAILY 08/06/18 [History Last Taken Unknown] cephalexin 500 mg PO Q6H 10 Days #40 cap 01/04/21 [Rx Last Taken Unknown] sulfamethoxazole-trimethoprim [Bactrim DS] 1 tab PO Q12H 10 Days #20 tab 01/04/21 [Rx Last Taken Unknown] Allergy/AdvReac Type Severity Reaction Status Date / Time No Known Allergies Allergy Verified 01/04/21 12:36 Social History Smoking Status: Never smoker ROS ROS ED ROS Narrative Denies recent illness Review of Systems ROS Unobtainable: Denies due to encephalopathy Constitutional Constitutional ED: Denies chills or fever(s) Eyes Eyes: Denies change in vision ENT ENT ED: Denies ear pain Cardiovascular Cardiovascular: Denies chest pain Respiratory/Chest Respiratory/Chest: Denies cough or dyspnea Gastrointestinal Gastrointestinal: Denies abdominal pain, diarrhea, nausea or vomiting Genitourinary Genitourinary ED: Denies dysuria Musculoskeletal Musculoskeletal: Denies myalgias Integumentary Denies rash Neurologic Neurologic: Denies headache(s) Psychiatric Psychiatric: Denies depression Endocrine Endocrinology: Denies polyuria Hematologic/Lymphatic Hematologic/Lymphatic: Denies easy bruising Allergic/Immunologic Allergic/Immunologic ED: Denies urticaria EXAM Physical Exam Narrative Exam Narrative: 85-year-old male sitting in a chair. Vital signs stable afebrile. Right knee mild redness and swelling. He has full flexion-extension. No signs of septic joint. There is no effusion. No bony deformity. Consistent with a mild prepatellar bursitis with skin cellulitis. There is an open sore. No purulent discharge. No streaking. Const Vital Signs: 01/04/21 12:34 Temperature 98.2 F Temperature Source Temporal Pulse Rate 48 L Respiratory Rate 16 Blood Pressure 142/88 H Blood Pressure Mean 106 Pulse Ox 98 Oxygen Delivery Method Room Air Positive well nourished and well developed; Negative for obese, cachectic, contractures or unkempt General Appearance ED: well developed and NAD; Negative for unkempt, cachectic or contractures Nutritional Appearance: Negative for cachectic or obese HEENT Reports moist mucous membranes normocephalic and atraumatic Eyes PERRL Neck full ROM and supple Thyroid: Negative for tender Chest Wall inspection of chest normal and palpation of chest normal Resp normal respiratory effort, No no retractions and clear to auscultation bilaterally Auscultation: Negative for rales, rhonchi or wheezes Cardio regular rate, regular rhythm, S1 normal heart sound, S2 normal heart sound and no murmurs GI non-tender, non-distended and no masses Auscultation: normoactive bowel sounds Palpation: soft; Negative for tender or guarding Back/Spine no CVA tenderness Extremity normal to inspection and full ROM Extremity Narrative: Right knee mild swelling consistent with a prepatellar bursitis. Not cellulitis. No septic joint. Has normal flexion extension. No bony deformity. No effusion. General Extremety ED: Negative for cyanosis General Extremity: Negative for cyanosis Neuro oriented x3 and moves all extremities Sensorium / Orientation: alert, oriented to person, oriented to place and oriented to time; Negative for orientation impaired, confused, lethargic or stuporous Motor Exam: strength 5/5 throughout Psych mental status grossly normal Appearance: Negative for unkempt Skin no wounds Skin Narrative: Small wound right knee with minor cellulitis. Lesions: no lesions MDM MDM MDM Narrative Medical decision making narrative: Patient had the right knee cellulitis with a minor prepatellar bursitis. I do not think the bursa is infected nor do I think he has any signs of septic joint. He will be placed on Keflex and Bactrim for 10 days. Ice to the area. Follow-up. Return if worse. Discharge Plan Triage Chief Complaint: Lower Extremity Injury ED Provider: Gabriel Fournier Dx/Rx/DC Orders Clinical Impression: Cellulitis, Bursitis, prepatellar, right Instructions: ED Bursitis, ED Cellulitis Prescriptions: New sulfamethoxazole-trimethoprim [Bactrim DS] 800-160 mg tablet 1 tab PO Q12H 10 Days Qty: 20 RF: 0 cephalexin 500 mg capsule 500 mg PO Q6H 10 Days Qty: 40 RF: 0 No Action hydrocodone-acetaminophen 1 EACH tablet 1 tab PO BID PRN PRN (Reason: Pain) RF: 0 lansoprazole [Prevacid] 30 MG capsule 30 mg PO DAILY RF: 0 wiarwpyb-swo-ZK-lycopen-lutein [Centrum Silver] 1 EACH tablet 1 ea PO DAILY RF: 0 clonidine 0.1 MG patch 0.4 mg topical TU RF: 0 furosemide 40 MG tablet 40 mg PO DAILY RF: 0 potassium chloride 20 MEQ packet 20 meq PO DAILY Qty: 10 RF: 0 sucralfate 1 GM tablet 1 g PO DAILY RF: 0 amlodipine 10 MG tablet 10 mg PO DAILY RF: 0 Buspar 10 MG 10 mg PO TID RF: 0 mirtazapine [Remeron] 15 MG tablet 15 mg PO QHS RF: 0 escitalopram oxalate 10 MG tablet 10 mg PO DAILY RF: 0 Primary Care Provider: Kieran Gary Chi Referrals: Kieran Gary Chi, MD [Primary Care Provider] - 3-5 Days Activity Restrictions/Additional Instructions: Right knee to decrease pain and swelling. Motrin and Tylenol for pain and swelling. Keflex 1 pill 4 times a day for 10 days and Bactrim 1 pill twice a day for 10 days to take care of the infection. This should get better if it is getting a lot worse more swelling, increasing pain much more redness or red streaks, fever or you are feeling worse return. Otherwise follow-up with your doctor to make sure this is improving. Disposition Disposition: Home, Self Care
[2021-01-04] MEDS: Cephalexin 250 MG Capsule 500 MG PO (14:34)
[2021-01-04] MEDS: Smz/Tmp Ds Tablet 1 TABLET PO (14:34)
[2021-01-04 14:36] VITALS: BP 144/75; PULSE 58; RESP 18; O2SAT 94
== END 2021-01-04 14:36 | disposition home or self-care (01) ==
LOC: ED 14:30
PROVIDERS: Emergency Provider Emergency Medicine; PCP Family Medicine Geriatric Medicine
DX: L03.115 Cellulitis of right lower limb (principal); M70.41 Prepatellar bursitis, right knee; Y93.9 Activity, unspecified; I10 Essential (primary) hypertension; Z79.899 Other long term (current) drug therapy
CPT/HCPCS: 99283

== ENCOUNTER → 2021-01-09 10:55 | Outpatient (CLI) | payer MEDICARE, SELFPAY ==
[2021-01-09 12:25] LABS: Absolute Lymphocyte Count 1.06 X10^3/uL (0.83-4.51); Absolute Neutrophil Count 3.4 X10^3/uL (2.0-7.7); Basophil# 0.04 X10^3/uL; Basophil% 0.8 % (0-1); Eosinophil# 0.12 X10^3/uL; Eosinophils% 2.3 % (0-5); Hematocrit 35.4 % (40-54); Hemoglobin 11.2 g/dL (13.0-16.5); Lymphocyte # 1.06 X10^3/ul (0.83-4.51); Lymphocyte % 20.4 % (19-41); Mean Corp Hgb Conc 31.6 g/dL (32-36); Mean Corpuscular Hgb 30.6 pg (27.0-32.0); Mean Corpuscular Volume 96.7 fL (80-94); Mean Platelet Vol. 10.6 fl (6.2-12.0); Monocyte# 0.53 X10^3/uL; Monocyte% 10.2 % (0-10); NRBC Flagged by Analyzer 0 % (0-5); Neutrophil # 3.42 X10^3/uL (2.7-7.7); Neutrophil % 65.9 % (47-70); Platelet Count 237 K/mm3 (150-450); RBC Distribution Width CV 13.7 % (11.6-14.6); RBC Distribution Width SD 48.6 fl (35.1-43.9); Red Blood Count 3.66 M/mm3 (4.6-6.2); White Blood Count 5.2 K/mm3 (4.4-11.0)
[2021-01-09 13:00] LABS: Vitamin D,25 Hydroxy 32.9 ng/mL
[2021-01-09 13:20] LABS: ALB/GLOB Ratio 0.8 RATIO (0.9-2.4); AST(SGOT) 21 U/L (15-37); Alanine Aminotransfer ALT/SGPT 25 U/L (16-61); Albumin, Serum 2.9 g/dL (3.2-5.0); Alkaline Phosphatase 119 U/L (45-117); Anion Gap 7 (5-15); BUN 22 mg/dL (7-18); BUN/Creat Ratio 9.4 RATIO (10-20); Calcium,Total 8.3 mg/dL (8.5-10.1); Chloride 112 mmol/L (98-107); Creatinine, Serum 2.35 mg/dL (0.70-1.30); EST Glomerular Filtration Rate 28 mL/min (>60); Est Glom Filt Rate - Afr Amer 34 mL/min (>60); Globulin 3.5 g/dL (2.2-4.2); Glucose 83 mg/dL (74-106); Potassium 4.1 mmol/L (3.5-5.1); Protein, Total 6.4 g/dL (6.4-8.2); Sodium Level 141 mmol/L (136-145); Thyroid Stim Hormone (TSH) 1.41 uIU/mL (0.358-3.74)
== END ==
PROVIDERS: PCP Family Medicine Geriatric Medicine; Visit Provider Family Medicine Geriatric Medicine
DX: E11.9 Type 2 diabetes mellitus without complications (principal); E55.9 Vitamin D deficiency, unspecified; I10 Essential (primary) hypertension
CPT/HCPCS: 36415; 80053; 82306; 84443; 85025

== ENCOUNTER 2021-02-09 13:28 | Observation (INO) | payer MEDICARE, SELFPAY ==
[2021-02-09] VITALS (12 sets, daily range): BP systolic 134–151; BP diastolic 64–91; PULSE 38–62; RESP 14–20; TEMP 36.5–36.8; O2SAT 97–100; BMI 25.0; BMI 23.5; BMI 21.4
--- NOTE | 2021-02-09 13:30 | CT_ITS ---
We are attempting to reach an attending provider to discuss findings. An addendum with communication details will be sent when the communication is complete. STUDY: CT BRAIN WITHOUT CONTRAST REASON FOR EXAM: Male, 85 years old. Neurologic deficit acute stroke evaluation RADIATION DOSAGE (If Supplied By Facility): CTDIvol = ( ) mGy, DLP = ( ) mGycm TECHNIQUE: Transaxial CT imaging of the brain was performed without administration of intravenous contrast material. Individualized dose optimization techniques were used for this CT. COMPARISON: No relevant priors. FINDINGS: Brain parenchyma is without focal lesions, mass effect, acute intracranial hemorrhage, extra parenchymal fluid collections, hydrocephalus or herniation. The skull is intact. 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 This does not need follow-up imaging. CT/STROKE Brain/Head without Cont IMPRESSION: 1. Normal CT brain. Electronically Signed: Adebayo Martinez MD at 13:49 EDT Tel , Service support ,
--- NOTE | 2021-02-09 13:30 | EKG12_ITS ---
Test Reason : STROKE Blood Pressure : / mmHG Vent. Rate : 050 BPM Atrial Rate : 050 BPM P-R Int : 196 ms QRS Dur : 078 ms QT Int : 418 ms P-R-T Axes : 068 000 010 degrees QTc Int : 381 ms Sinus bradycardia Low voltage QRS (Limb Leads) Confirmed by DAYANA PALACIOS, FELIPE ([id number]), visual effects editor LORI MIX ([id number]) on 02/11/2021 10:30:22 AM Referred By: MED Confirmed By:FELIPE ANNE MD
[2021-02-09 13:48] LABS: Absolute Lymphocyte Count 1.06 X10^3/uL (0.83-4.51); Absolute Neutrophil Count 2.7 X10^3/uL (2.0-7.7); Basophil# 0.05 X10^3/uL; Basophil% 1.2 % (0-1); Eosinophil# 0.08 X10^3/uL; Eosinophils% 1.9 % (0-5); Hematocrit 35.4 % (40-54); Hemoglobin 11.4 g/dL (13.0-16.5); Lymphocyte # 1.06 X10^3/ul (0.83-4.51); Lymphocyte % 24.7 % (19-41); Mean Corp Hgb Conc 32.2 g/dL (32-36); Mean Corpuscular Hgb 30.7 pg (27.0-32.0); Mean Corpuscular Volume 95.4 fL (80-94); Monocyte# 0.38 X10^3/uL; Monocyte% 8.9 % (0-10); NRBC Flagged by Analyzer 0 % (0-5); Neutrophil # 2.71 X10^3/uL (2.7-7.7); Neutrophil % 63.1 % (47-70); Platelet Count 162 K/mm3 (150-450); RBC Distribution Width CV 13.9 % (11.6-14.6); RBC Distribution Width SD 48.9 fl (35.1-43.9); Red Blood Count 3.71 M/mm3 (4.6-6.2); White Blood Count 4.3 K/mm3 (4.4-11.0)
[2021-02-09 13:57] LABS: International Normalized Ratio 1.1; Prothrombin Time (Protime)PT. 13.2 SECONDS (11.7-14.9)
--- NOTE | 2021-02-09 13:58 | ED.VIS.STROK ---
HPI History of Present Illness Chief Complaint: Neuro S/Sx Informant: patient and EMS Onset/Context/Timing Onset: Today Context: Sudden Onset Quality and Location: Positive for Left Arm Weakness and Slurred Speech Current Severity: Mild Maximum Severity: Moderate Narrative Narrative: Patient presents via EMS as a stroke alert. Reportedly at 12:40 PM patient had sudden onset of slurred speech and left arm weakness. He states he had to use his right hand to move his left arm. On arrival to the emergency room patient is met at the door. He has good strength noted with mild slurred speech. It is noted that the patient is edentulous. [facility] Medical History (Updated 02/09/21 @ 15:[address] Sandra Hernandez MD) BPH (benign prostatic hyperplasia) Hypertension Home Medications hydrocodone-acetaminophen 1 tab PO BID PRN PRN 07/02/13 [History Last Taken 10/21/17] furosemide 40 mg PO QODAY 10/21/17 [History Last Taken 10/21/17] potassium chloride 20 meq PO DAILY #10 packet 10/21/17 [Rx Last Taken Unknown] Buspar 10 mg PO TID 08/06/18 [History Last Taken Unknown] amlodipine 5 mg PO DAILY 08/06/18 [History Last Taken Unknown] clonidine 1 patch TRANSDERMAL QWEEK 02/09/21 [History Last Taken Unknown] clonidine 1 patch TRANSDERMAL QWEEK 02/09/21 [History Last Taken Unknown] doxepin 10 mg PO DAILY 02/09/21 [History Last Taken Unknown] ergocalciferol (vitamin D2) [Vitamin D2] 1,250 mcg PO QMONTH 02/09/21 [History Last Taken Unknown] tamsulosin 0.4 mg PO BID 02/09/21 [History Last Taken Unknown] Allergy/AdvReac Type Severity Reaction Status Date / Time No Known Allergies Allergy Verified 02/09/21 13:50 Social History Smoking Status: Never smoker ROS ROS ED Constitutional Constitutional ED: Denies chills or fever(s) Eyes Eyes: Denies change in vision ENT ENT ED: Denies sore throat Cardiovascular Cardiovascular: Denies chest pain Respiratory/Chest Respiratory/Chest: Denies cough or dyspnea Gastrointestinal Gastrointestinal: Denies abdominal pain, diarrhea, nausea or vomiting Genitourinary Genitourinary ED: Denies dysuria Musculoskeletal Musculoskeletal: Denies back pain Integumentary Denies rash Neurologic Neurologic: Reports weakness and other Details: Slurred speech ; Denies headache(s) Allergic/Immunologic Allergic/Immunologic ED: Denies urticaria EXAM Physical Exam Const Vital Signs: 02/09/21 13:30 02/09/21 13:34 02/09/21 13:47 Temperature 98.2 F Temperature Source Oral Pulse Rate 60 62 Respiratory Rate 16 15 Blood Pressure 143/88 H 151/83 H Blood Pressure Mean 106 105 Pulse Ox 99 99 Oxygen Delivery Method Room Air Room Air Room Air 02/09/21 13:51 02/09/21 14:15 02/09/21 14:47 Temperature 98.2 F Temperature Source Oral Pulse Rate 51 L 57 L 51 L Respiratory Rate 20 H 18 17 Blood Pressure 142/75 H 135/64 H 135/64 H Blood Pressure Mean 97 87 87 Pulse Ox 99 99 99 Oxygen Delivery Method Room Air Room Air Room Air Positive well nourished and well developed General Appearance ED: well developed HEENT Reports moist mucous membranes Eyes PERRL and EOMs intact bilaterally Chest Wall inspection of chest normal and palpation of chest normal Resp normal respiratory effort and clear to auscultation bilaterally Cardio Rate: bradycardia Rhythm: regular rhythm GI normal to inspection, nondistended, normoactive bowel sounds, soft to palpation and non-tender Neuro oriented x3 Neuro Narrative: See NIH stroke scale. Sensorium / Orientation: alert Skin Rashes: no rashes STROKE Vital Signs/Narrative: Vital Signs Temp Pulse Resp BP Pulse Ox 02/09/21 14:47 51 L 17 135/64 H 99 02/09/21 14:15 57 L 18 135/64 H 99 02/09/21 13:51 98.2 F 51 L 20 H 142/75 H 99 02/09/21 13:47 62 15 151/83 H 99 02/09/21 13:34 98.2 F 60 16 143/88 H 99 NIHSS Initial: 1a Level of Consciousness: 0 1b LOC Questions (Score 2 if aphasic/stupor): 0 1c LOC Commands (Only score 1st attempt): 0 2 Best Gaze (If aphasic, use reflexive mvmts.): 0 3 Visual: 0 4 Facial Palsy: 0 5 Motor Arm Right (UN = amputation/fusion): 0 5 Motor Arm Left: 0 6 Motor Leg Right: 0 6 Motor Leg Left: 0 7 Limb ataxia (Only + if out of proportion): 0 8 Sensory (Aphasia/stupor=0 or 1, coma=2): 0 9 Best Language: 0 10 Dysarthria (mute, coma=2, intubated=UN): 1 11 Extinction and Inattention (only scored if +): 0 Total Score: 1 2nd Follow up: 1a Level of Consciousness: 0 1b LOC Questions (Score 2 if aphasic/stupor): 0 1c LOC Commands (Only score 1st attempt): 0 2 Best Gaze (If aphasic, use reflexive mvmts.): 0 3 Visual: 0 4 Facial Palsy: 0 5 Motor Arm Right (UN = amputation/fusion): 0 5 Motor Arm Left: 0 6 Motor Leg Right: 0 6 Motor Leg Left: 0 7 Limb ataxia (Only + if out of proportion): 0 8 Sensory (Aphasia/stupor=0 or 1, coma=2): 0 9 Best Language: 0 10 Dysarthria (mute, coma=2, intubated=UN): 1 11 Extinction and Inattention (only scored if +): 0 Total Score: 1 MDM MDM MDM Narrative Medical decision making narrative: Stroke alert initiated prior to patient's arrival. Patient sent immediately to CT. Lab work, EKG, chest x-ray also obtained. Lab Data Attestation: I reviewed the patient's lab results. Labs: Laboratory Results - last 24 hr 02/09/21 02/09/21 02/09/21 13:40 13:40 13:40 WBC 4.3 L RBC 3.71 L Hgb 11.4 L Hct 35.4 L MCV 95.4 H MCH 30.7 MCHC 32.2 RDW Std Deviation 48.9 H RDW Coeff of Fitz 13.9 Plt Count 162 MPV 11.0 Immature Gran % (Auto) 0.200 Neut % (Auto) 63.1 Lymph % (Auto) 24.7 [place] % (Auto) 8.9 Eos % (Auto) 1.9 Baso % (Auto) 1.2 H Absolute Neuts (auto) 2.7 Absolute Lymphs (auto) 1.06 Nucleated RBC % 0 PT 13.2 INR 1.1 APTT 29.7 Sodium 142 Potassium 3.9 Chloride 112 H Carbon Dioxide 26.0 Anion Gap 4 L BUN 26 H Creatinine 2.13 H Estim Creat Clear Calc 26.28 Est GFR (MDRD) Af Amer 38 L Est GFR (MDRD) Non-Af 32 L BUN/Creatinine Ratio 12.2 Glucose 82 Calcium 8.0 L Troponin I High Sens 24 Radiography Diagnostic Testing: Clinical Impression(s) from Imaging Studies Brain CT 02/09/21 13:30 IMPRESSION: 1. Normal CT brain. Electronically Signed: Adebayo Martinez MD at 13:49 EDT Tel , Service support , ADDENDUM: 02/09/21 1402 IMPRESSION: 1. Normal CT brain. N.B. : The above Results were Read Back by Adebayo Martinez MD to Sandra Hernandez MD, and understanding confirmed on 02/09/2021 13:55:38 (ET). Electronically Signed: Adebayo Martinez MD at 13:49 EDT Tel , Service support , Chest X-Ray 02/09/21 14:10 IMPRESSION: No acute findings in the chest and unchanged when compared to 08/06/2018. Electronically Signed: Ochoa Benjamin MD at 14:41 EDT , Service support , EKG Initial EKG: Attestation: I personally reviewed and interpreted this EKG as follows: Interpretation: Sinus Bradycardia (Sinus bradycardia 50 bpm. No acute ischemia. No significant change when compared to prior study of August 2018.) Treatment and Re-Evaluation Comments:: When I went back to reevaluate the patient in the room the stroke neurologist was on the robot. I assisted with the patient's exam. At that time patient's NIH score was at best a 1. Neurologist did discuss with the patient the option of giving TPA. Risks and benefits were explained to the patient. He declines receiving TPA at this time. Lab work is reviewed. Patient's GFR is 32. With risk benefits evaluated we did choose to go ahead and perform CTA and provide IV hydration following scan. CTA has returned with no evidence of LVO. Patient's NIH score has continued to wax and wane up to max score of 4. He has had some increased weakness in his left arm again. Test results discussed with patient and family at bedside. Patient will be admitted for further treatment. Stroke Documentation Questions Stroke Team Activated: Yes Reviewed Inclusion/Exclusion criteria: Yes IV Alteplase (t-PA) Administered: No Alteplase (t-PA) risks, benefits, alternative discussed: Yes Not given: Patient refusal: Yes Discharge Plan Triage Chief Complaint: Neuro S/Sx ED Provider: Sandra Hernandez Dx/Rx/DC Orders Clinical Impression: Acute CVA (cerebrovascular accident) Prescriptions: No Action hydrocodone-acetaminophen 1 EACH tablet 1 tab PO BID PRN PRN (Reason: Pain) RF: 0 furosemide 40 MG tablet 40 mg PO QODAY RF: 0 potassium chloride 20 MEQ packet 20 meq PO DAILY Qty: 10 RF: 0 amlodipine 10 MG tablet 5 mg PO DAILY RF: 0 Buspar 10 MG 10 mg PO TID RF: 0 doxepin 10 mg Capsule 10 mg PO DAILY RF: 0 tamsulosin 0.4 mg Capsule 0.4 mg PO BID RF: 0 ergocalciferol (vitamin D2) [Vitamin D2] 1,250 mcg (50,000 unit) Capsule 1,250 mcg PO QMONTH RF: 0 clonidine 0.1 mg/24 hr Patch Weekly 1 patch TRANSDERMAL QWEEK RF: 0 clonidine 0.3 mg/24 hr Patch Weekly 1 patch TRANSDERMAL QWEEK RF: 0 Primary Care Provider: Kieran Gary Chi Referrals: Kieran Gary Chi, MD [Primary Care Provider] - Disposition Disposition: Acute Care Hospital [facility]
[2021-02-09 13:59] LABS: Partial Thromboplast Time 29.7 Seconds (24.1-36.2)
[2021-02-09 14:06] LABS: Anion Gap 4 (5-15); BUN 26 mg/dL (7-18); BUN/Creat Ratio 12.2 RATIO (10-20); Chloride 112 mmol/L (98-107); Creatinine, Serum 2.13 mg/dL (0.70-1.30); EST Glomerular Filtration Rate 32 mL/min (>60); Est Glom Filt Rate - Afr Amer 38 mL/min (>60); Estimated Creatinine Clearance 26.28 ml/min; Glucose 82 mg/dL (74-106); Potassium 3.9 mmol/L (3.5-5.1); Sodium Level 142 mmol/L (136-145); Troponin-I HS 24 pg/mL (3.0-78.0)
--- NOTE | 2021-02-09 14:10 | RAD_ITS ---
EXAM: XR CHEST, 1 VIEW CLINICAL INDICATION: Neurodeficit. Acute stroke suspected. TECHNIQUE: Frontal view of the chest. This report was created using Trot report generation technology. COMPARISON: None. FINDINGS: LUNGS AND PLEURAL SPACES: Unremarkable. No consolidation or edema. No pneumothorax. No effusion. HEART: Mild cardiomegaly. Prominent left nipple shadow. MEDIASTINUM: Central airways and mediastinal contour are unremarkable. BONES/JOINTS: Unremarkable. SOFT TISSUES: Unremarkable. RAD/Chest 1 View IMPRESSION: No acute findings in the chest and unchanged when compared to 08/06/2018. Electronically Signed: Ochoa Benjamin MD at 14:41 EDT , Service support ,
--- NOTE | 2021-02-09 14:16 | CT_ITS ---
STUDY: CTA HEAD AND NECK WITH CONTRAST REASON FOR EXAM: Male, 85 years old. Stroke RADIATION DOSAGE (If Supplied By Facility): CTDIvol = ( 25.51 ) mGy, DLP = ( 704.84 ) mGycm TECHNIQUE: CT angiography was performed with a multi-detector CT scanner. Data acquisition was obtained from the skull base through the vertex following intravenous administration of 75 mL of ISOVUE-370. MIP images were reconstructed from the axial data set. Post-processing of the angiographic images was performed, with multiplanar reformation and 3D reconstruction. Individualized dose optimization techniques were used for this CT. COMPARISON: CT head without contrast 02/09/2021. FINDINGS: Normal bilateral petrous carotid arteries. Normal right cavernous carotid artery with a normal supraclinoid bifurcation. Normal left cavernous carotid artery with a normal supraclinoid bifurcation. Normal right A1 segment of the anterior cerebral artery. Normal left A1 segment of the anterior cerebral artery. Normal intact anterior communicating artery (ACOM). Normal bilateral A2 segments of the anterior cerebral arteries. Normal right M1 and M2 segments of the middle cerebral arteries, with a normal M1 bifurcation. Normal left M1 and M2 segments of the middle cerebral arteries, with a normal M1 bifurcation. No visible right posterior communicating artery (PCOM). No visible left posterior communicating artery (PCOM). Normal bilateral vertebral arteries. The left is dominant. Normal basilar artery with a normal basilar bifurcation. The visualized bilateral superior cerebellar (SCA) arteries are normal. Normal bilateral P1, P2 and visualized P3 segments of the posterior cerebral arteries. There is no demonstrated aneurysm of the [place]. There is no demonstrated abnormality of the visualized brain. AORTIC ARCH: Normal visualized aortic arch. Normal origins of the brachiocephalic, left common carotid, and left subclavian arteries. RIGHT CAROTID ARTERIES: Normal right common carotid artery (CCA). Calcified plaques in the origin and distal end of the right internal carotid bulb without significant stenosis. Mild narrowing at the origin of the right internal carotid (ICA) artery due to calcified plaques without a hemodynamically significant stenosis. Normal visualized cervical portion of the right internal carotid artery. Normal origin of the right external carotid artery (ECA). LEFT CAROTID ARTERIES: Normal left common carotid artery (CCA). Minimal nonocclusive calcified plaques in the proximal left internal carotid bulb. Widely patent origin of the left internal carotid (ICA) artery without a hemodynamically significant stenosis. Normal visualized cervical portion of the left internal carotid artery. Normal origin of the left external carotid artery (ECA). VERTEBRAL ARTERIES: Normal bilateral vertebral arteries. The left vertebral is dominant. CT/CTA Head AND Neck W/ Contrast IMPRESSION: 1. Normal CTA head without suspicious intracranial aneurysm or significant vaso-occlusive disease of the anterior and posterior intracranial circulation. 2. Calcified plaques at the origin of the right internal carotid artery bulb without significant stenosis. 3. Widely patent bilateral common carotid arteries, bilateral common carotid bifurcations, bilateral internal and external carotid arteries and bilateral vertebral arteries. 4. Normal aortic arch and origins of the great vessels. 5. Widely patent subclavian origins of both vertebral arteries despite the calcified plaque at the origin of the left vertebral artery. Electronically Signed: Ochoa Benjamin MD at 15:17 EDT , Service support ,
--- NOTE | 2021-02-09 14:45 | ED.RN ---
DR NELSON NOTIFIED OF CHANGE IN [facility]
[2021-02-09] MEDS: 0.9% Normal Saline 1,000 ML 150 ML IV (14:50)
--- NOTE | 2021-02-09 15:48 | PCM.HP.STD ---
HPI - General General Date of Admission: 02/09/21 HPI Narrative LUCIEN YOUNGER, is a 85 M with history of hypertension was brought in ER by EMS as a stroke alert. Patient developed sudden onset of slurred speech and left arm weakness at 12:40 PM. His symptoms of slurred speech and strength is waxing and waning. No facial droop although patient is edentulous. No prior history of a stroke, coronary artery disease/cardiac stent or peripheral arterial disease. [facility] was consulted and after discussion of risk and benefit with a low NIH stroke scale, maximum score 4, patient refused for TPA. Patient had CT angiogram of head and neck which did not show evidence of LVO. Patient has CKD stage IV for several years and follows Dr. Lora. Patient also on Lasix 40 mg every other day with potassium supplement. Twelve-lead EKG shows sinus bradycardia 50 bpm, QTC 431 ms. As per patient, his and son near the bedside he wears probably apple watch and he states irregular heartbeat but never been diagnosed A. fib or dysrhythmia. Chest x-ray no acute abnormality. CT head reported normal. Patient is further admitted for stroke work-up. [facility] Medical History BPH (benign prostatic hyperplasia) Hypertension Home Medications hydrocodone-acetaminophen 1 tab PO BID PRN PRN 07/02/13 [History Last Taken 10/21/17] furosemide 40 mg PO QODAY 10/21/17 [History Last Taken 10/21/17] potassium chloride 20 meq PO DAILY #10 packet 10/21/17 [Rx Last Taken Unknown] Buspar 10 mg PO TID 08/06/18 [History Last Taken Unknown] amlodipine 5 mg PO DAILY 08/06/18 [History Last Taken Unknown] clonidine 1 patch TRANSDERMAL QWEEK 02/09/21 [History Last Taken Unknown] clonidine 1 patch TRANSDERMAL QWEEK 02/09/21 [History Last Taken Unknown] doxepin 10 mg PO DAILY 02/09/21 [History Last Taken Unknown] ergocalciferol (vitamin D2) [Vitamin D2] 1,250 mcg PO QMONTH 02/09/21 [History Last Taken Unknown] tamsulosin 0.4 mg PO BID 02/09/21 [History Last Taken Unknown] Allergy/AdvReac Type Severity Reaction Status Date / Time No Known Allergies Allergy Verified 02/09/21 13:50 Social History Smoking Status: Never smoker ROS ROS Narrative Constitutional: Chronic multiple medical disorder and weakness. No acute fever or chills. HEENT: Reports systems reviewed and no addt'l complaints, except as documented Respiratory/Chest: Denies chest pain, shortness of breath at rest or with exertion Gastrointestinal: Denies coffee ground emesis, hematemesis or vomiting Genitourinary: Chronic intermittent micturition with the stop and go. Denies acute burning urination or new urinary tract symptoms Musculoskeletal: Reports joint pain and limited range of motion Neurologic: Denies seizure-like activity skin: No ulcer. No rash Endocrinology: Reports systems reviewed and no addt'l complaints, except as documented Hematologic/Lymphatic: Reports systems reviewed and no addt'l complaints, except as documented Rest 12 ROS are negative except as mentioned in HPI Vital Signs Vital Signs Vital Signs: 02/09/21 13:30 02/09/21 13:34 02/09/21 13:47 Temperature 98.2 F Temperature Source Oral Pulse Rate 60 62 Respiratory Rate 16 15 Blood Pressure 143/88 H 151/83 H Blood Pressure Mean 106 105 Pulse Ox 99 99 Oxygen Delivery Method Room Air Room Air Room Air 02/09/21 13:51 02/09/21 14:15 02/09/21 14:47 Temperature 98.2 F Temperature Source Oral Pulse Rate 51 L 57 L 51 L Respiratory Rate 20 H 18 17 Blood Pressure 142/75 H 135/64 H 135/64 H Blood Pressure Mean 97 87 87 Pulse Ox 99 99 99 Oxygen Delivery Method Room Air Room Air Room Air 02/09/21 15:15 Temperature Temperature Source Pulse Rate 47 L Respiratory Rate 16 Blood Pressure 134/70 H Blood Pressure Mean 91 Pulse Ox 99 Oxygen Delivery Method Room Air Weight Weight: 159 lb 6.307 oz Body Mass Index (BMI) 23.5 Physical Exam Narrative General: Alert, Oriented x3, Cooperative HEENT: Atraumatic, PERRLA, EOMI, Normocephalic Oral: No Gingival or Mucosal Lesions/ Ulcerations Neck: Supple, No JVD, Negative Carotid Bruits Lungs: Air entry diminished in bilateral lung bases. No crepitation/rhonchi Cardiovascular: Sinus bradycardia, Normal S1, Normal S2, No murmurs Abdomen: Chronic esophageal stricture. bowel Sounds Present, Soft, Non Tender, Non-Distended : No renal angle tenderness. No suprapubic tenderness. Extremities: Mild ankle edema, Capillary Refill Less than 3 Seconds Skin: No rashes, No breakdown Musculoskeletal: No Tenderness to Palpation of Joints or Extremities Neurological: NIH stroke scale 1 with mild to moderate dysarthria. No drift in left upper extremity in 10 seconds. Cranial nerves II-XII grossly intact, DTR 2+/4 Psych/Mental Status: Normal Affect, Appropriate. Results Lab / Micro Data Result Diagrams: 02/09/21 13:40 02/09/21 13:40 Labs: Laboratory Results - last 24 hr 02/09/21 13:40: WBC 4.3 L, RBC 3.71 L, Hgb 11.4 L, Hct 35.4 L, MCV 95.4 H, MCH 30.7, MCHC 32.2, RDW Std Deviation 48.9 H, RDW Coeff of Fitz 13.9, Plt Count 162, MPV 11.0, Immature Gran % (Auto) 0.200, Neut % (Auto) 63.1, Lymph % (Auto) 24.7, [place] % (Auto) 8.9, Eos % (Auto) 1.9, Baso % (Auto) 1.2 H, Absolute Neuts (auto) 2.7, Absolute Lymphs (auto) 1.06, Nucleated RBC % 0 02/09/21 13:40: PT 13.2, INR 1.1, APTT 29.7 02/09/21 13:40: Sodium 142, Potassium 3.9, Chloride 112 H, Carbon Dioxide 26.0, Anion Gap 4 L, BUN 26 H, Creatinine 2.13 H, Estim Creat Clear Calc 26.28, Est GFR (MDRD) Af Amer 38 L, Est GFR (MDRD) Non-Af 32 L, BUN/Creatinine Ratio 12.2, Glucose 82, Calcium 8.0 L, Troponin I High Sens [address] 02/09/21 13:30 IMPRESSION: 1. Normal CT brain. Electronically Signed: Adebayo Martinez MD at 13:49 EDT Tel , Service support , ADDENDUM: 02/09/21 1402 IMPRESSION: 1. Normal CT brain. N.B. : The above Results were Read Back by Adebayo Martinez MD to Sandra Hernandez MD, and understanding confirmed on 02/09/2021 13:55:38 (ET). Electronically Signed: Adebayo Martinez MD at 13:49 EDT Tel , Service support , Chest X-Ray 02/09/21 14:10 IMPRESSION: No acute findings in the chest and unchanged when compared to 08/06/2018. Electronically Signed: Ochoa Benjamin MD at 14:41 EDT , Service support , Head/Neck CTA 02/09/21 14:16 IMPRESSION: 1. Normal CTA head without suspicious intracranial aneurysm or significant vaso-occlusive disease of the anterior and posterior intracranial circulation. 2. Calcified plaques at the origin of the right internal carotid artery bulb without significant stenosis. 3. Widely patent bilateral common carotid arteries, bilateral common carotid bifurcations, bilateral internal and external carotid arteries and bilateral vertebral arteries. 4. Normal aortic arch and origins of the great vessels. 5. Widely patent subclavian origins of both vertebral arteries despite the calcified plaque at the origin of the left vertebral artery. Electronically Signed: Ochoa Benjamin MD at 15:17 EDT , Service support , Assessment & Plan Assessment/Plan (1) Acute CVA (cerebrovascular accident): PLAN: This is 85-year-old gentleman were admitted with left upper extremity weakness and slurred speech, mild to moderate dysarthria. 1. Acute ischemic stroke: Patient is being admitted in PCU. Stroke work-up with MRI brain and 2D echo. CTA head and neck does not show LVO or suspicious intracranial aneurysm. Patient been evaluated by [facility] neurologist and patient was given option for TPA but refused because of low NIH stroke scale. Started on aspirin, Plavix and high intensity statin. PT, OT, speech/swallow evaluation, BP and glucose control as per stroke guidelines. [facility] neurologist consult after the work-up is done. 2. Hypertension: Currently patient blood pressure is controlled. As per last EGD in October 2017, EF 55% LA mildly enlarged, no significant valvular abnormality. Diastolic function indeterminate. Blood pressure is within stroke guidelines. 3. Hypoglycemia: Patient denies history of diabetes mellitus and is not on hypoglycemic agent. No diagnosis assigned. Patient gets symptomatic with neuroglycopenic symptoms as per the . 4. Chronic distal esophageal stricture: Patient has this for the last 10 years and requires at least once yearly esophageal dilatation. Patient does not want definitive surgery. 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 Patient required EGD for esophageal foreign body obstruction in August 23 19 December 2013. 5. CKD stage IV: Patient follows Dr. Lora his creatinine has been above 2.0 since December 2019 and previously elevated 1.3 since October 2017. Estimated creatinine clearance 26 mm/min. Patient has risk for JAZMIN explained to patient and his and son with IV contrast given. IV fluid normal saline 100 mL/h. Follow BMP tomorrow a.m. Other chronic comorbidities include BPH, anxiety and depression: Home medication reconciliation done. Living will/advanced directive/end of life care: Patient does not have living will or advanced directive or designated health power of tax associate attorney. His is next to kin. After discussion of benefits/risks procedures involved with full code, DNR CC arrest and DNR CC with patient, his and son, they opted for full code. Patient does want artificial life support including intubation, tube feed, ventilator and/chest compression, central venous catheter, vasopressor and DC shock if needed Total time spent in [id number] encounter in discussion of advanced directive 16 minutes. Clinical Impression(s) from Imaging Studies Brain CT 02/09/21 13:30 IMPRESSION: 1. Normal CT brain. Chest X-Ray 02/09/21 14:10 IMPRESSION: No acute findings in the chest and unchanged when compared to 08/06/2018. Head/Neck CTA 02/09/21 14:16 IMPRESSION: 1. Normal CTA head without suspicious intracranial aneurysm or significant vaso-occlusive disease of the anterior and posterior intracranial circulation. 2. Calcified plaques at the origin of the right internal carotid artery bulb without significant stenosis. 3. Widely patent bilateral common carotid arteries, bilateral common carotid bifurcations, bilateral internal and external carotid arteries and bilateral vertebral arteries. 4. Normal aortic arch and origins of the great vessels. 5. Widely patent subclavian origins of both vertebral arteries despite the calcified plaque at the origin of the left vertebral artery. Charges/Coding Visit Charges OBSV E&M: 17673 Subsequent observation care L3 Procedures Hospitalists Procedures: [id number] Advncd Care Plan 30 Min
[2021-02-09 16:26] LABS: Magnesium 2.3 mg/dL (1.6-2.6)
--- NOTE | 2021-02-09 17:30 | PCS.PANDOC ---
PANDEMIC DOCUMENTATION INITIATED: Date: 11/19/2020 Time: 190
[2021-02-09] MEDS: 0.9% Normal Saline 1,000 ML 75 ML IV (17:42)
[2021-02-09] MEDS: Clopidogrel Bisulfate 75 MG Tablet PO (17:49)
[2021-02-09] MEDS: Aspirin 81 MG TAB.CHEW PO (17:50)
--- NOTE | 2021-02-09 17:54 | EKG12_ITS ---
Test Reason : Blood Pressure : / mmHG Vent. Rate : 041 BPM Atrial Rate : 041 BPM P-R Int : 202 ms QRS Dur : 094 ms QT Int : 500 ms P-R-T Axes : 037 -06 005 degrees QTc Int : 412 ms Marked sinus bradycardia Abnormal ECG Confirmed by DAYANA PALACIOS, FELIPE ([id number]), art editor LORI MIX ([id number]) on 02/12/2021 8:46:50 AM Referred By: ANDREW Confirmed By:FELIPE ANNE MD
[2021-02-09] MEDS: Tamsulosin HCl 0.4 MG Capsule PO (18:24)
[2021-02-09 18:26] LABS: Bedside Glucose 82 mg/dL (70-110)
[2021-02-09 18:52] LABS: Phosphorus 3.9 mg/dL (2.5-4.9)
[2021-02-09] MEDS: Atorvastatin Calcium 80 MG Tablet PO (19:41)
[2021-02-09] MEDS: busPIRone 5 MG Tablet 10 MG PO (19:41)
[2021-02-09 23:35] LABS: Bedside Glucose 98 mg/dL (70-110)
[2021-02-10] VITALS (9 sets, daily range): BP systolic 118–150; BP diastolic 54–100; PULSE 41–74; RESP 14–16; TEMP 36.2–36.8; O2SAT 96–100; BMI 21.4
[2021-02-10] MEDS: busPIRone 5 MG Tablet 10 MG PO ×2 (05:15→15:01)
[2021-02-10 05:55] LABS: Bedside Glucose 86 mg/dL (70-110)
[2021-02-10 07:36] LABS: Absolute Lymphocyte Count 1.07 X10^3/uL (0.83-4.51); Absolute Neutrophil Count 2.2 X10^3/uL (2.0-7.7); Basophil# 0.05 X10^3/uL; Basophil% 1.3 % (0-1); Eosinophil# 0.16 X10^3/uL; Eosinophils% 4.2 % (0-5); Hematocrit 35.6 % (40-54); Hemoglobin 11.7 g/dL (13.0-16.5); Lymphocyte # 1.07 X10^3/ul (0.83-4.51); Lymphocyte % 28.3 % (19-41); Mean Corp Hgb Conc 32.9 g/dL (32-36); Mean Corpuscular Volume 94.2 fL (80-94); Mean Platelet Vol. 11.3 fl (6.2-12.0); Monocyte# 0.32 X10^3/uL; Monocyte% 8.5 % (0-10); NRBC Flagged by Analyzer 0 % (0-5); Neutrophil # 2.17 X10^3/uL (2.7-7.7); Neutrophil % 57.4 % (47-70); Platelet Count 161 K/mm3 (150-450); RBC Distribution Width CV 13.9 % (11.6-14.6); RBC Distribution Width SD 48.1 fl (35.1-43.9); Red Blood Count 3.78 M/mm3 (4.6-6.2); White Blood Count 3.8 K/mm3 (4.4-11.0)
[2021-02-10 08:31] LABS: Anion Gap 5 (5-15); BUN 21 mg/dL (7-18); BUN/Creat Ratio 11.9 RATIO (10-20); Calcium,Total 8.1 mg/dL (8.5-10.1); Chloride 112 mmol/L (98-107); Cholesterol 123 mg/dL (200); Creatinine, Serum 1.77 mg/dL (0.70-1.30); EST Glomerular Filtration Rate 39 mL/min (>60); Est Glom Filt Rate - Afr Amer 48 mL/min (>60); Estimated Creatinine Clearance 29.48 ml/min; Glucose 91 mg/dL (74-106); High Density Lipoprotein 49 mg/dL; Phosphorus 3.3 mg/dL (2.5-4.9); Potassium 3.9 mmol/L (3.5-5.1); Sodium Level 143 mmol/L (136-145); Thyroid Stim Hormone (TSH) 2.27 uIU/mL (0.358-3.74); Triglycerides 109 mg/dL; Very Low Density Lipoprotein 22 mg/dL (5-40)
[2021-02-10 08:47] LABS: Hemoglobin A1c 5.1 % (3.8-5.6)
--- NOTE | 2021-02-10 09:12 | MRI_ITS ---
STUDY: MRI BRAIN WITHOUT CONTRAST REASON FOR EXAM: Male, 85 years old. CVA TECHNIQUE: Standardized multiplanar fat and water weighted pulse sequences were obtained. COMPARISON: 02/09/2021 FINDINGS: There is mild cerebral atrophy with widening of the extra-axial spaces and ventricular dilatation. There are multiple white matter hyperintensities, distributed throughout the deep white matter tracts of the cerebral hemispheres, consistent with mild chronic white matter ischemic changes. Again noted is the approximately 1.2 cm partially calcified right frontal meningioma. Normal bilateral basal ganglia. Normal thalami. There is no extra-axial fluid accumulation. Normal sella turcica, pituitary gland, infundibular stalk, optic chiasm and hypothalamus. Normal tectal plate and pineal gland. Normal midbrain, alexis and medulla. Normal cerebellum. Normal basal cisterns. MRI/Brain without Contrast IMPRESSION: No acute intracranial abnormality. Mild chronic microvascular ischemic changes. Electronically Signed: Jassi Mccain MD at 14:01 EST Tel , Service support ,
[2021-02-10] MEDS: Aspirin 81 MG TAB.CHEW PO (10:55)
[2021-02-10] MEDS: Tamsulosin HCl 0.4 MG Capsule PO ×2 (10:56→17:57)
[2021-02-10] MEDS: Furosemide 40 MG Tablet PO (10:56)
[2021-02-10] MEDS: Enoxaparin 30 MG/0.3 ML Syringe SC (10:56)
[2021-02-10] MEDS: Potassium Chloride Oral Soln 20 MEQ/15 ML UDC PO (10:56)
[2021-02-10] MEDS: Clopidogrel Bisulfate 75 MG Tablet PO (10:58)
[2021-02-10] MEDS: amLODIPine 5 MG Tablet PO (10:58)
[2021-02-10] MEDS: Doxepin Hydrochloride 10 MG Capsule PO (10:59)
--- NOTE | 2021-02-10 12:26 | PCM.PN.HOSP ---
Subjective Subjective MRI is done. Heart rate and blood pressure controlled. Heart rate in 52 and yesterday dropped to 38 per note. Patient asymptomatic from bradycardia. Magnesium 2.3. Phosphorus 3.3. Electrolytes in normal range except chloride 112. Creatinine improved better after IV fluid than baseline Objective Data Objective Data Vital Signs: Vital Signs Temp Pulse Resp BP Pulse Ox 97.1 F L 52 L 16 138/100 H 100 02/10/21 12:17 02/10/21 12:17 02/10/21 12:17 02/10/21 12:17 02/10/21 12:17 Oxygen Delivery Method Room Air Weight: 145 lb 4.554 oz Body Mass Index (BMI) 21.4 Intake & Output: Intake and Output for Last 24 Hours 02/08/21 02/09/21 02/10/21 23:59 23:59 22:59 Intake Total 632.5 / 632.5 1750 / 1750 Output Total 0 / 0 550 / 550 Balance 632.5 / 632.5 1200 / 1200 Lab / Micro Data Result Diagrams: 02/10/21 06:46 02/10/21 06:46 Labs: Laboratory Results - last 24 hr 02/09/21 13:40: WBC 4.3 L, RBC 3.71 L, Hgb 11.4 L, Hct 35.4 L, MCV 95.4 H, MCH 30.7, MCHC 32.2, RDW Std Deviation 48.9 H, RDW Coeff of Fitz 13.9, Plt Count 162, MPV 11.0, Immature Gran % (Auto) 0.200, Neut % (Auto) 63.1, Lymph % (Auto) 24.7, [place] % (Auto) 8.9, Eos % (Auto) 1.9, Baso % (Auto) 1.2 H, Absolute Neuts (auto) 2.7, Absolute Lymphs (auto) 1.06, Nucleated RBC % 0 02/09/21 13:40: PT 13.2, INR 1.1, APTT 29.7 02/09/21 13:40: Sodium 142, Potassium 3.9, Chloride 112 H, Carbon Dioxide 26.0, Anion Gap 4 L, BUN 26 H, Creatinine 2.13 H, Estim Creat Clear Calc 26.28, Est GFR (MDRD) Af Amer 38 L, Est GFR (MDRD) Non-Af 32 L, BUN/Creatinine Ratio 12.2, Glucose 82, Calcium 8.0 L, Troponin I High Sens 24 02/09/21 13:40: Magnesium 2.3 02/09/21 13:40: Phosphorus 3.9 02/09/21 18:19: POC Glucose 82 02/09/21 23:28: POC Glucose 98 02/10/21 05:47: POC Glucose 86 02/10/21 06:46: WBC 3.8 L, RBC 3.78 L, Hgb 11.7 L, Hct 35.6 L, MCV 94.2 H, MCH 31.0, MCHC 32.9, RDW Std Deviation 48.1 H, RDW Coeff of Fitz 13.9, Plt Count 161, MPV 11.3, Immature Gran % (Auto) 0.300, Neut % (Auto) 57.4, Lymph % (Auto) 28.3, [place] % (Auto) 8.5, Eos % (Auto) 4.2, Baso % (Auto) 1.3 H, Absolute Neuts (auto) 2.2, Absolute Lymphs (auto) 1.07, Nucleated RBC % 0 02/10/21 06:46: Sodium 143, Potassium 3.9, Chloride 112 H, Carbon Dioxide 26.0, Anion Gap 5, BUN 21 H, Creatinine 1.77 H, Estim Creat Clear Calc 29.48, Est GFR (MDRD) Af Amer 48 L, Est GFR (MDRD) Non-Af 39 L, BUN/Creatinine Ratio 11.9, Glucose 91, Calcium 8.1 L, Phosphorus 3.3, Triglycerides 109, Cholesterol 123, LDL Cholesterol 52, VLDL Cholesterol 22, HDL Cholesterol 49, TSH 2.27 02/10/21 06:46: Hemoglobin A1c 5.1 Radiography Diagnostic Testing: Radiology Impression Brain CT 02/09/21 13:30 IMPRESSION: 1. Normal CT brain. Electronically Signed: Adebayo Martinez MD at 13:49 EDT Tel , Service support , ADDENDUM: 02/09/21 5312 IMPRESSION: 1. Normal CT brain. N.B. : The above Results were Read Back by Adebayo Martinez MD to Sandra Hernandez MD, and understanding confirmed on 02/09/2021 13:55:38 (ET). Electronically Signed: Adebayo Martinez MD at 13:49 EDT Tel , Service support , Chest X-Ray 02/09/21 14:10 IMPRESSION: No acute findings in the chest and unchanged when compared to 08/06/2018. Electronically Signed: Ochoa Benjamin MD at 14:41 EDT , Service support , Head/Neck CTA 02/09/21 14:16 IMPRESSION: 1. Normal CTA head without suspicious intracranial aneurysm or significant vaso-occlusive disease of the anterior and posterior intracranial circulation. 2. Calcified plaques at the origin of the right internal carotid artery bulb without significant stenosis. 3. Widely patent bilateral common carotid arteries, bilateral common carotid bifurcations, bilateral internal and external carotid arteries and bilateral vertebral arteries. 4. Normal aortic arch and origins of the great vessels. 5. Widely patent subclavian origins of both vertebral arteries despite the calcified plaque at the origin of the left vertebral artery. Electronically Signed: Ochoa Benjamin MD at 15:17 EDT , Service support , Physical Exam Narrative General: Alert, Oriented x3, Cooperative HEENT: Atraumatic, PERRLA, EOMI, Normocephalic Oral: No Gingival or Mucosal Lesions/ Ulcerations Neck: Supple, No JVD, Negative Carotid Bruits Lungs: Air entry diminished in bilateral lung bases. No crepitation/rhonchi Cardiovascular: Sinus bradycardia, Normal S1, Normal S2, No murmurs Abdomen: Chronic esophageal stricture. bowel Sounds Present, Soft, Non Tender, Non-Distended : No renal angle tenderness. No suprapubic tenderness. Extremities: Mild ankle edema, Capillary Refill Less than 3 Seconds Skin: No rashes, No breakdown Musculoskeletal: No Tenderness to Palpation of Joints or Extremities Neurological: NIH stroke scale 1 with mild to moderate dysarthria. No drift in left upper extremity in 10 seconds. Cranial nerves II-XII grossly intact, DTR 2+/4 Psych/Mental Status: Normal Affect, Appropriate. Assessment & Plan Assessment/Plan (1) Acute CVA (cerebrovascular accident): PLAN: This is 85-year-old gentleman were admitted with left upper extremity weakness and slurred speech, mild to moderate dysarthria. 1. Acute ischemic stroke: Patient is being admitted in PCU. Stroke work-up with MRI brain and 2D echo. CTA head and neck does not show LVO or suspicious intracranial aneurysm. Patient been evaluated by [facility] neurologist and patient was given option for TPA but refused because of low NIH stroke scale. Started on aspirin, Plavix and high intensity statin. PT, OT, speech/swallow evaluation, BP and glucose control as per stroke guidelines. [facility] neurologist consult after the work-up is done. 2. Hypertension: Currently patient blood pressure is controlled. As per last EGD in October 2017, EF 55% LA mildly enlarged, no significant valvular abnormality. Diastolic function indeterminate. Blood pressure is within stroke guidelines. 3. Hypoglycemia: Patient denies history of diabetes mellitus and is not on hypoglycemic agent. No diagnosis assigned. Patient gets symptomatic with neuroglycopenic symptoms as per the . 4. Chronic distal esophageal stricture: Patient has this for the last 10 years and requires at least once yearly esophageal dilatation. Patient does not want definitive surgery. 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 Patient required EGD for esophageal foreign body obstruction in August 23 19 December 2013. 5. CKD stage IV: Patient follows Dr. Lora his creatinine has been above 2.0 since December 2019 and previously elevated 1.3 since October 2017. Estimated creatinine clearance 26 mm/min. Patient has risk for JAZMIN explained to patient and his and son with IV contrast given. IV fluid normal saline 100 mL/h. Follow BMP tomorrow a.m. Other chronic comorbidities include BPH, anxiety and depression: Home medication reconciliation done. Living will/advanced directive/end of life care: Patient does not have living will or advanced directive or designated health power of research attorney. His is next to kin. After discussion of benefits/risks procedures involved with full code, DNR CC arrest and DNR CC with patient, his and son, they opted for full code. Patient does want artificial life support including intubation, tube feed, ventilator and/chest compression, central venous catheter, vasopressor and DC shock if needed Total time spent in [id number] encounter in discussion of advanced directive 16 minutes. Clinical Impression(s) from Imaging Studies Brain CT 02/09/21 13:30 IMPRESSION: 1. Normal CT brain. Chest X-Ray 02/09/21 14:10 IMPRESSION: No acute findings in the chest and unchanged when compared to 08/06/2018. Head/Neck CTA 02/09/21 14:16
[2021-02-10 12:36] LABS: Bedside Glucose 142 mg/dL (70-110)
--- NOTE | 2021-02-10 13:57 | PCM.DC ---
Discharge Instructions Diet Discharge Diet: Low fat / Low cholesterol and 2000 mg Sodium Diet Dressing / Incision Call your doctor if you observe: Fever of 101 or Higher, Coldness, Increased Pain, Numbness or Tingling, Change in Color, Inability to urinate, Inability to have a bowel movement, Shortness of breath, Dizziness, Fainting spells, Swelling in the ankles, Chest pain, Prolonged hiccupping, Increased palpitations (irregular heartbeat), Calf discomfort and Uncontrolled pain Follow Up Care Test Results: Test results from this visit will be discussed in further detail at your follow-up appointment, if applicable. Discharge Plan Admission Admit Date/Time: 02/09/21 15:43 Primary Reason for Your Visit: Left frontal lobe ischemic stroke Attending Provider: Danielito Rosa Primary Care Provider: Kieran Gary Chi Instructions Additional Instructions / Restrictions: Outpatient 2D echo order signed in 1- 3 days. 30-day event monitor follow-up with environmental health manager Dr. Pleitez. Discharge Orders/Prescriptions Prescriptions: New clopidogrel 75 mg Tablet 75 mg PO DAILY Qty: 21 RF: 0 aspirin 81 mg Tablet,Chewable 81 mg PO BREAKFAST Qty: 90 RF: 1 atorvastatin 40 mg tablet 40 mg PO QHS Qty: 30 RF: 0 Continued hydrocodone-acetaminophen 1 EACH tablet 1 tab PO BID PRN PRN (Reason: Pain) RF: 0 potassium chloride 20 MEQ packet 20 meq PO DAILY Qty: 10 RF: 0 Buspar 10 MG 10 mg PO TID RF: 0 doxepin 10 mg Capsule 10 mg PO DAILY RF: 0 tamsulosin 0.4 mg Capsule 0.4 mg PO BID RF: 0 ergocalciferol (vitamin D2) [Vitamin D2] 1,250 mcg (50,000 unit) Capsule 1,250 mcg PO QMONTH RF: 0 furosemide 40 MG tablet 40 mg PO QODAY Qty: 0 RF: 0 clonidine 0.1 mg/24 hr Patch Weekly 1 patch TRANSDERMAL QWEEK Qty: 0 RF: 0 clonidine 0.3 mg/24 hr Patch Weekly 1 patch TRANSDERMAL QWEEK Qty: 0 RF: 0 amlodipine 10 MG tablet 5 mg PO DAILY Qty: 0 RF: 0 Other Ambulatory Orders: 30-Day Event Recorder (Routine) Location: None Selected Ordered By: Dr. Danielito Rosa Referrals / Follow Up: Davey Griggs MD [STAFF PHYSICIAN] - Within 2 Weeks (For follow up stroke) Kieran Gary Chi, MD [Primary Care Provider] - Within 1 Week Disposition Disposition (needs filled in before D/C Order can be placed): Home, Self Care
--- NOTE | 2021-02-10 14:05 | DS.PCM_ITS ---
Providers Date of Admission: 02/09/21 Primary Care Physician: Dr. Kieran Gary MD Reason For Visit: STROKE Diagnosis Discharge Diagnosis (1) Acute CVA (cerebrovascular accident): Status: Acute Code(s): I63.9 - Cerebral infarction, unspecified Medications at Discharge Home Medications hydrocodone-acetaminophen 1 tab PO BID PRN PRN 07/02/13 potassium chloride 20 meq PO DAILY #10 packet 10/21/17 Buspar 10 mg PO TID 08/06/18 doxepin 10 mg PO DAILY 02/09/21 ergocalciferol (vitamin D2) [Vitamin D2] 1,250 mcg PO QMONTH 02/09/21 tamsulosin 0.4 mg PO BID 02/09/21 amlodipine 5 mg PO DAILY #0 tab 02/10/21 aspirin 81 mg PO BREAKFAST #90 tab 02/10/21 atorvastatin 40 mg PO QHS #30 tab 02/10/21 clonidine 1 patch TRANSDERMAL QWEEK #0 ea 02/10/21 clonidine 1 patch TRANSDERMAL QWEEK #0 ea 02/10/21 clopidogrel 75 mg PO DAILY #21 tab 02/10/21 furosemide 40 mg PO QODAY #0 tab 02/10/21 Hospital Course Summary of Care Provided Hospital Course: This is 85-year-old gentleman were admitted with left upper extremity weakness and slurred speech, mild to moderate dysarthria. In ED, patient been evaluated by [facility] neurologist and patient was given option for TPA but refused because of low NIH stroke scale. Started on aspirin, Plavix and high intensity statin. PT, OT, speech/swallow evaluation, BP and glucose control as per stroke guidelines. [facility] neurologist consult after the work-up is done. 1. Acute ischemic stroke possible from hypotension.: Patient is being admitted in PCU. Stroke work-up with MRI brain and 2D echo was ordered. CTA head and neck does not show LVO or suspicious intracranial aneurysm. Patient had PT OT and speech evaluation and stroke work-up. Patient states sometimes his blood pressure is low in 100s and 90s. Patient was educated not to take blood pressure medication if systolic blood pressure less than 120 mmHg or feeling dizzy or lightheaded. His understood it. MRI reported as no acute infarct but I confirmed with [facility] neurologist that there is a small posterior right frontal lobe infarct. He recommended dual antiplatelet agent aspirin and Plavix for 21 days and then aspirin lifelong. High intensity statin, atorvastatin 40 mg daily at bedtime. Patient prefers 2D echo done as an outpatient and does not want to wait for tomorrow. Prescription for 2D echo given. TSH normal. A1c 5.1%. 2. Hypertension: Currently patient blood pressure is controlled. As per last EGD in October 2017, EF 55% LA mildly enlarged, no significant valvular abnormality. Diastolic function indeterminate. Blood pressure is within stroke guidelines. Advised to hold antihypertensive medication if systolic blood pressure less than 120 mmHg. 3. Hypoglycemia: Patient denies history of diabetes mellitus and is not on hypoglycemic agent. No diagnosis assigned. Patient gets symptomatic with neuroglycopenic symptoms as per the . 4. Chronic distal esophageal stricture: Patient has this for the last 10 years and requires at least once yearly esophageal dilatation. Patient does not want definitive surgery. He follows [facility] radio adjuster. Patient required EGD for esophageal foreign body obstruction in August 23 19 December 2013. 5. CKD stage IV: Patient follows Dr. Lora his creatinine has been above 2.0 since December 2019 and previously elevated 1.3 since October 2017. Estimated creatinine clearance 26 mm/min. Patient has risk for JAZMIN explained to patient and his and son with IV contrast given. Patient has managed with IV fluid normal saline 100 mL/h. Repeat creatinine 1.77 improved and baseline 2.13. Other chronic comorbidities include BPH, anxiety and depression: Home medication reconciliation done. Discharge medication reconciliation done. Discharge follow-up instructions completed. Discharge process discussed with the patient and all questions were answered to patient's satisfaction. Total time spent, exact 35 minutes on discharge meds reconciliation, examination, coordination of care with nurses and ancillary staff, review of imaging and blood test and discussion with the patient on follow-up instructions Physical Exam Narrative General: Alert, Oriented x3, Cooperative HEENT: Atraumatic, PERRLA, EOMI, Normocephalic Oral: No Gingival or Mucosal Lesions/ Ulcerations Neck: Supple, No JVD, Negative Carotid Bruits Lungs: Air entry diminished in bilateral lung bases. No crepitation/rhonchi Cardiovascular: Sinus bradycardia, Normal S1, Normal S2, No murmurs Abdomen: Chronic esophageal stricture. bowel Sounds Present, Soft, Non Tender, Non-Distended : No renal angle tenderness. No suprapubic tenderness. Extremities: Mild ankle edema, Capillary Refill Less than 3 Seconds Skin: No rashes, No breakdown Musculoskeletal: No Tenderness to Palpation of Joints or Extremities Neurological: NIH stroke scale 1 with mild to moderate dysarthria. LUE back to normal. Cranial nerves II-XII grossly intact, DTR 2+/4 Psych/Mental Status: Normal Affect, Appropriate. Weight / BMI Weight Weight: 145 lb 4.554 oz Body Mass Index (BMI) 21.4 ABG / Lab / Microbiology Data Result Diagrams: 02/10/21 06:46 02/10/21 06:46 Laboratory: Laboratory Results - last 24 hr 02/09/21 13:40: Magnesium 2.3 02/09/21 13:40: Phosphorus 3.9 02/09/21 18:19: POC Glucose 82 02/09/21 23:28: POC Glucose 98 02/10/21 05:47: POC Glucose 86 02/10/21 06:46: WBC 3.8 L, RBC 3.78 L, Hgb 11.7 L, Hct 35.6 L, MCV 94.2 H, MCH 31.0, MCHC 32.9, RDW Std Deviation 48.1 H, RDW Coeff of Fitz 13.9, Plt Count 161, MPV 11.3, Immature Gran % (Auto) 0.300, Neut % (Auto) 57.4, Lymph % (Auto) 28.3, [place] % (Auto) 8.5, Eos % (Auto) 4.2, Baso % (Auto) 1.3 H, Absolute Neuts (auto) 2.2, Absolute Lymphs (auto) 1.07, Nucleated RBC % 0 02/10/21 06:46: Sodium 143, Potassium 3.9, Chloride 112 H, Carbon Dioxide 26.0, Anion Gap 5, BUN 21 H, Creatinine 1.77 H, Estim Creat Clear Calc 29.48, Est GFR (MDRD) Af Amer 48 L, Est GFR (MDRD) Non-Af 39 L, BUN/Creatinine Ratio 11.9, Glucose 91, Calcium 8.1 L, Phosphorus 3.3, Triglycerides 109, Cholesterol 123, LDL Cholesterol 52, VLDL Cholesterol 22, HDL Cholesterol 49, TSH 2.27 02/10/21 06:46: Hemoglobin A1c 5.1 02/10/21 12:28: POC Glucose 142 H Radiography Diagnostic Testing: Radiology Impression Head/Neck CTA 02/09/21 14:16 IMPRESSION: 1. Normal CTA head without suspicious intracranial aneurysm or significant vaso-occlusive disease of the anterior and posterior intracranial circulation. 2. Calcified plaques at the origin of the right internal carotid artery bulb without significant stenosis. 3. Widely patent bilateral common carotid arteries, bilateral common carotid bifurcations, bilateral internal and external carotid arteries and bilateral vertebral arteries. 4. Normal aortic arch and origins of the great vessels. 5. Widely patent subclavian origins of both vertebral arteries despite the calcified plaque at the origin of the left vertebral artery. Electronically Signed: Ochoa Benjamin MD at 15:17 EDT , Service support , Brain MRI 02/10/21 09:12 IMPRESSION: No acute intracranial abnormality. Mild chronic microvascular ischemic changes. Electronically Signed: Jassi Mccain MD at 14:01 EST Tel , Service support , Meaningful Use Info Meaningful Use Diagnoses (Choose all that apply): None applicable and Ischemic CVA CVA Therapy Assessed for PT,OT and/or ST?: Yes Ischemic Stroke Antithrombotic order at d/c?: Yes Dx of Atrial fib/flutter?: No Anticoagulant at discharge?: Yes Statins at discharge?: Yes Primary Dx Acute Ischemic CVA?: Yes IV tPA ordered during stay?: No Reason IV t-PA not ordered: Drug Declined by Patient Discharge Plan Admission Admit Date/Time: 02/09/21 15:43 Primary Reason for Your Visit: Left frontal lobe ischemic stroke Attending Provider: Danielito Rosa Primary Care Provider: Kieran Gary Chi Instructions Additional Instructions / Restrictions: Outpatient 2D echo order signed in 1- 3 days. 30-day event monitor follow-up with mortgage loan interviewer Dr. Pleitez. Discharge Orders/Prescriptions Prescriptions: New clopidogrel 75 mg Tablet 75 mg PO DAILY Qty: 21 RF: 0 aspirin 81 mg Tablet,Chewable 81 mg PO BREAKFAST Qty: 90 RF: 1 atorvastatin 40 mg tablet 40 mg PO QHS Qty: 30 RF: 0 Continued hydrocodone-acetaminophen 1 EACH tablet 1 tab PO BID PRN PRN (Reason: Pain) RF: 0 potassium chloride 20 MEQ packet 20 meq PO DAILY Qty: 10 RF: 0 Buspar 10 MG 10 mg PO TID RF: 0 doxepin 10 mg Capsule 10 mg PO DAILY RF: 0 tamsulosin 0.4 mg Capsule 0.4 mg PO BID RF: 0 ergocalciferol (vitamin D2) [Vitamin D2] 1,250 mcg (50,000 unit) Capsule 1,250 mcg PO QMONTH RF: 0 furosemide 40 MG tablet 40 mg PO QODAY Qty: 0 RF: 0 clonidine 0.1 mg/24 hr Patch Weekly 1 patch TRANSDERMAL QWEEK Qty: 0 RF: 0 clonidine 0.3 mg/24 hr Patch Weekly 1 patch TRANSDERMAL QWEEK Qty: 0 RF: 0 amlodipine 10 MG tablet 5 mg PO DAILY Qty: 0 RF: 0 Other Ambulatory Orders: 30-Day Event Recorder (Routine) Location: None Selected Ordered By: Dr. Danielito Rosa Referrals / Follow Up: Davey Griggs MD [STAFF PHYSICIAN] - Within 2 Weeks (For follow up stroke) Kieran Gary Chi, MD [Primary Care Provider] - Within 1 Week Disposition Disposition (needs filled in before D/C Order can be placed): Home, Self Care Charges/Coding Visit Charges Inpatient E&M: 41825 Disch Hosp
[2021-02-10] MEDS: oxyCODONE 5 MG Tablet PO (15:02)
== END 2021-02-10 14:04 | disposition home or self-care (01) ==
LOC: ED 15:36 → PCU 15:46 → ED 02-11 16:36 → PCU 02-11 16:37
PROVIDERS: Admitting Provider Internal Medicine; Emergency Provider Emergency Medicine; PCP Family Medicine Geriatric Medicine; Visit Provider Internal Medicine
DX: I63.9 Cerebral infarction, unspecified (principal); R53.1 Weakness; N40.0 Benign prostatic hyperplasia without lower urinary tract symptoms; I12.9 Hypertensive chronic kidney disease with stage 1 through stage 4 chronic kidney disease, or unspecified chronic kidney disease; R29.701 NIHSS score 1; N18.4 Chronic kidney disease, stage 4 (severe); R47.1 Dysarthria and anarthria; E16.2 Hypoglycemia, unspecified; Z79.899 Other long term (current) drug therapy; K22.2 Esophageal obstruction; F32.A Depression, unspecified; F41.9 Anxiety disorder, unspecified
CPT/HCPCS: 70450; 70496; 70498; 70551; 71045; 80048; 80061; 82962; 83036; 83735; 84100; 84443; 84484; 85025; 85610; 85730; 92610; 93005; 94762; 96360; 96361; 96372; 97161; 97166; 99218; 99251; 99285; J7030; Q9967; A4216; G0378; G0463

== ENCOUNTER → 2021-02-21 10:54 | Outpatient (CLI) | payer MEDICARE, SELFPAY ==
--- NOTE | 2021-02-21 11:01 | ECHOD_ITS ---
Reason For Study: CVA Procedure This was a 2D Doppler, Color Flow transthoracic echocardiogram. The exam was of adequate technical quality. Exam performed in department. Left Ventricle Normal LV size. Sigmoid septum. Left ventricular systolic function is normal. The estimated ejection fraction is 65 %. No evidence for diastolic dysfunction. No regional wall motion abnormalities noted. Right Ventricle Normal RV size. Normal systolic function. Atria The left atrium is mildly enlarged. Normal right atrium. No doppler evidence for ASD. Bubble contrast study negative for right to left interatrial shunt. Mitral Valve There is no mitral annular calcification. Mild focal mitral valve calcification of the posterior leaflet. Trivial mitral valve insufficiency. Tricuspid Valve Normal tricuspid valve. Trivial tricuspid valve insufficiency. Right ventricular systolic pressure estimated to be 29 mmHg. Aortic Valve Trisinus/trileaflet aortic valve. Mild focal aortic valve calcification. Pulmonic Valve The pulmonic valve is not well visualized. Trivial pulmonic valve insufficiency. Great Vessels Normal sized aortic root. Pericardium/Pleural No pericardial effusion. Medication 22 gauge I.V. with prn adaptor inserted into right arm. Performed a rapid injection of agitated mix of 9 cc saline and 1cc air to assess for atrial septal defect. MMode/2D Measurements & Calculations LVIDd: 4.0 cm IVSd: 1.1 cm Ao root diam: 3.4 cm LVIDs: 2.7 cm LVPWd: 1.1 cm RVDd: 3.7 cm FS: 32.9 % LAV(MOD-bp): 51.3 ml LVAd ap4: 25.7 cm2 SV(MOD-sp4): 45.9 ml LAV(MOD-bp) Indexed: 27.9 ml/m2 LVLd ap4: 7.5 cm LAV(MOD-sp2): 54.7 ml EDV(MOD-sp4): 73.0 ml LAV(MOD-sp4): 48.3 ml EDV(sp4-el): 74.3 ml LVAs ap4: 13.9 cm2 LVLs ap4: 6.3 cm ESV(MOD-sp4): 27.1 ml ESV(sp4-el): 26.0 ml EF(MOD-sp4): 62.9 % EF(sp4-el): 65.0 % SV(sp4-el): 48.3 ml LA A4 area: 17.7 cm2 LA dimension(2D): 4.0 cm RA A4 area: 15.6 cm2 Time Measurements MV dec time: 0.38 sec Doppler Measurements & Calculations MV E max reji: 48.6 cm/sec Lat Peak E' Reji: 6.6 cm/sec Med Peak E' Reji: 4.0 cm/sec MV A max reji: 64.8 cm/sec E/E' lat: 7.4 E/E' med: 12.2 MV E/A: 0.75 Ao V2 max: 150.4 cm/sec LV V1 max: 108.0 cm/sec PA V2 max: 92.2 cm/sec Ao max P.1 mmHg LV V1 max P.7 mmHg TR max reji: 254.7 cm/sec TR max P.9 mmHg ECHO/Echo Complete Interpretation Summary Left ventricular systolic function is normal. The estimated ejection fraction is 65 %. Sigmoid septum. The left atrium is mildly enlarged. Mild focal mitral valve calcification of the posterior leaflet. Trivial mitral valve insufficiency. Trivial tricuspid valve insufficiency. Mild focal aortic valve calcification. Trivial pulmonic valve insufficiency. Right ventricular systolic pressure estimated to be 29 mmHg. No evidence for diastolic dysfunction. Bubble contrast study negative for right to left interatrial shunt. Ordering Physician: Danielito Rosa Referring Physician: KARMA FERNANDES Performed By: Zehra Rodriguez RDCS
== END ==
PROVIDERS: PCP Family Medicine Geriatric Medicine; Referring Provider Internal Medicine; Visit Provider Internal Medicine
DX: Z86.73 Personal history of transient ischemic attack (TIA), and cerebral infarction without residual deficits (principal)
CPT/HCPCS: 93306; A4216

== ENCOUNTER 2021-05-06 18:00 | Outpatient (CLI) | payer MEDICARE, SELFPAY ==
[2021-05-06 18:48] LABS: Amphetamine Urine VISTA NEGATIVE (<1000 ng/mL); Barbiturate Urine VISTA NEGATIVE (< 200 ng/mL); Benzodiazepine Urine VISTA NEGATIVE (< 200 ng/mL); Cocaine Urine VISTA NEGATIVE (< 300 ng/mL); Ecstacy Urine VISTA NEGATIVE (< 500 ng/mL); Methadone Urine VISTA NEGATIVE (< 300 ng/mL); PCP Urine VISTA NEGATIVE (< 25 ng/mL); THC Urine VISTA NEGATIVE (< 50 ng/mL); Vista UDS pH Range 5
== END 2021-05-06 23:59 | disposition short-term general hospital (02) ==
PROVIDERS: PCP Family Medicine Geriatric Medicine; Visit Provider Anesthesiology Pain Medicine
DX: F11.20 Opioid dependence, uncomplicated (principal)
CPT/HCPCS: 80307

== ENCOUNTER 2021-07-24 10:12 | Outpatient (CLI) | payer MEDICARE, SELFPAY ==
[2021-07-24 12:10] LABS: Absolute Lymphocyte Count 1.24 X10^3/uL (0.83-4.51); Absolute Neutrophil Count 3.5 X10^3/uL (2.0-7.7); Basophil# 0.05 X10^3/uL; Basophil% 0.9 % (0-1); Eosinophil# 0.18 X10^3/uL; Eosinophils% 3.3 % (0-5); Hematocrit 38.4 % (40-54); Lymphocyte # 1.24 X10^3/ul (0.83-4.51); Lymphocyte % 22.6 % (19-41); Mean Corp Hgb Conc 33.9 g/dL (32-36); Mean Corpuscular Hgb 31.3 pg (27.0-32.0); Mean Corpuscular Volume 92.3 fL (80-94); Mean Platelet Vol. 11.8 fl (6.2-12.0); Monocyte# 0.49 X10^3/uL; Monocyte% 8.9 % (0-10); NRBC Flagged by Analyzer 0 % (0-5); Neutrophil % 63.9 % (47-70); Platelet Count 185 K/mm3 (150-450); RBC Distribution Width SD 47.8 fl (35.1-43.9); Red Blood Count 4.16 M/mm3 (4.6-6.2); White Blood Count 5.5 K/mm3 (4.4-11.0)
[2021-07-24 12:37] LABS: AST(SGOT) 30 U/L (15-37); Alanine Aminotransfer ALT/SGPT 33 U/L (16-61); Albumin, Serum 3.3 g/dL (3.2-5.0); Alkaline Phosphatase 131 U/L (45-117); Anion Gap 7 (5-15); BUN 25 mg/dL (7-18); BUN/Creat Ratio 12.4 RATIO (10-20); Calcium,Total 8.5 mg/dL (8.5-10.1); Chloride 107 mmol/L (98-107); Creatinine, Serum 2.02 mg/dL (0.70-1.30); EST Glomerular Filtration Rate 34 mL/min (>60); Est Glom Filt Rate - Afr Amer 41 mL/min (>60); Globulin 3.3 g/dL (2.2-4.2); Glucose 79 mg/dL (74-106); Potassium 2.9 mmol/L (3.5-5.1); Protein, Total 6.6 g/dL (6.4-8.2); Sodium Level 143 mmol/L (136-145); Thyroid Stim Hormone (TSH) 1.36 uIU/mL (0.358-3.74)
== END 2021-07-24 23:59 | disposition home or self-care (01) ==
LOC: POLAB3 10:13
PROVIDERS: PCP Family Medicine Geriatric Medicine; Visit Provider Family Medicine Geriatric Medicine
DX: E55.9 Vitamin D deficiency, unspecified (principal); I10 Essential (primary) hypertension
CPT/HCPCS: 36415; 80053; 82306; 84443; 85025

== ENCOUNTER → 2022-04-02 | Outpatient (CLI) | payer MEDICARE, SELFPAY ==
[2022-04-02 17:30] LABS: Absolute Lymphocyte Count 1.11 X10^3/uL (0.83-4.51); Basophil# 0.04 X10^3/uL; Basophil% 0.9 % (0-1); Eosinophils% 2.1 % (0-5); Hematocrit 36.4 % (40-54); Hemoglobin 12.2 g/dL (13.0-16.5); Lymphocyte # 1.11 X10^3/ul (0.83-4.51); Lymphocyte % 23.6 % (19-41); Mean Corp Hgb Conc 33.5 g/dL (32-36); Mean Corpuscular Hgb 32.7 pg (27.0-32.0); Mean Corpuscular Volume 97.6 fL (80-94); Mean Platelet Vol. 11.3 fl (6.2-12.0); Monocyte# 0.41 X10^3/uL; Monocyte% 8.7 % (0-10); NRBC Flagged by Analyzer 0 % (0-5); Neutrophil # 3.03 X10^3/uL (2.7-7.7); Neutrophil % 64.5 % (47-70); Platelet Count 177 K/mm3 (150-450); RBC Distribution Width CV 13.9 % (11.6-14.6); RBC Distribution Width SD 50.3 fl (35.1-43.9); Red Blood Count 3.73 M/mm3 (4.6-6.2); White Blood Count 4.7 K/mm3 (4.4-11.0)
[2022-04-02 17:50] LABS: Vitamin D,25 Hydroxy 32.4 ng/mL
[2022-04-02 18:09] LABS: ALB/GLOB Ratio 1.1 RATIO (0.9-2.4); AST(SGOT) 22 U/L (15-37); Alanine Aminotransfer ALT/SGPT 23 U/L (16-61); Albumin, Serum 3.2 g/dL (3.2-5.0); Alkaline Phosphatase 100 U/L (45-117); Anion Gap 6 (5-15); BUN 21 mg/dL (7-18); BUN/Creat Ratio 10.9 RATIO (10-20); Calcium,Total 8.1 mg/dL (8.5-10.1); Chloride 111 mmol/L (98-107); Creatinine, Serum 1.92 mg/dL (0.70-1.30); EST Glomerular Filtration Rate 36 mL/min (>60); Est Glom Filt Rate - Afr Amer 43 mL/min (>60); Globulin 2.9 g/dL (2.2-4.2); Glucose 116 mg/dL (74-106); Potassium 3.8 mmol/L (3.5-5.1); Protein, Total 6.1 g/dL (6.4-8.2); Sodium Level 143 mmol/L (136-145); Thyroid Stim Hormone (TSH) 1.31 uIU/mL (0.358-3.74)
== END | disposition home or self-care (01) ==
LOC: POLAB3 14:45
PROVIDERS: PCP Family Medicine Geriatric Medicine; Visit Provider Family Medicine Geriatric Medicine
DX: R60.9 Edema, unspecified (principal); N18.4 Chronic kidney disease, stage 4 (severe); E55.9 Vitamin D deficiency, unspecified; I12.9 Hypertensive chronic kidney disease with stage 1 through stage 4 chronic kidney disease, or unspecified chronic kidney disease
CPT/HCPCS: 36415; 80053; 82306; 84443; 85025

== ENCOUNTER 2022-07-07 07:07 | Emergency (ER) | payer MEDICARE, SELFPAY ==
[2022-07-07 07:08] VITALS: BP 195/97; PULSE 60; RESP 18; TEMP 36.3; O2SAT 99; BMI 22.6
--- NOTE | 2022-07-07 07:26 | EX.ED.DYSGE1 ---
HPI History of Present Illness Chief Complaint: Nosebleed Informant: patient Onset/Context/Timing Onset: Hours Narrative Narrative: Patient presents via EMS secondary to right-sided nosebleed. Patient states he started bleeding on 330 this morning. He takes aspirin daily but no other anticoagulants. He denies recent URI symptoms and no facial trauma. [facility] Medical History Acute CVA (cerebrovascular accident) BPH (benign prostatic hyperplasia) Hypertension Home Medications hydrocodone 7.5 mg-acetaminophen 750 mg tablet 1 tab PO BID PRN PRN Pain 07/02/13 [History Last Taken 10/21/17] potassium chloride 20 mEq oral packet 20 meq PO DAILY #10 packets 10/21/17 [Rx Last Taken Unknown] Buspar 10 mg PO TID 08/06/18 [History Last Taken Unknown] doxepin 10 mg capsule 10 mg PO DAILY 02/09/21 [History Last Taken Unknown] ergocalciferol (vitamin D2) 1,250 mcg (50,000 unit) capsule (Vitamin D2) 1,250 mcg PO QMONTH 02/09/21 [History Last Taken Unknown] tamsulosin 0.4 mg capsule 0.4 mg PO BID 02/09/21 [History Last Taken Unknown] amlodipine 10 mg tablet 5 mg PO DAILY #0 tabs 02/10/21 [Rx Last Taken Unknown] aspirin 81 mg chewable tablet 81 mg PO BREAKFAST #90 tabs 02/10/21 [Rx Last Taken Unknown] atorvastatin 40 mg tablet 40 mg PO QHS #30 tabs 02/10/21 [Rx Last Taken Unknown] clonidine 0.3 mg/24 hr weekly transdermal patch 1 patch transdermal QWEEK #0 ea 02/10/21 [Rx Last Taken Unknown] clopidogrel 75 mg tablet 75 mg PO DAILY #21 tabs 02/10/21 [Rx Last Taken Unknown] furosemide 40 mg tablet 40 mg PO QODAY WATER PILL #0 tabs 02/10/21 [Rx Last Taken 10/21/17] amoxicillin 500 mg capsule 500 mg PO Q8H #24 caps 07/07/22 [Rx Last Taken Unknown] Allergy/AdvReac Type Severity Reaction Status Date / Time No Known Allergies Allergy Verified 07/07/22 07:11 Surgical History H/O hernia repair Social History Smoking Status: Never smoker ROS ROS ED Constitutional Constitutional ED: Denies chills or fever(s) Eyes Eyes: Denies change in vision or discharge from eye(s) ENT ENT ED: Reports other Details: Right-sided nosebleed ; Denies discharge from eye(s) or sore throat Cardiovascular Cardiovascular: Denies chest pain or palpitations Respiratory/Chest Respiratory/Chest: Denies cough or dyspnea Gastrointestinal Gastrointestinal: Denies abdominal pain, nausea or vomiting Musculoskeletal Musculoskeletal: Denies back pain or extremity pain Integumentary Denies Abrasions or rash Neurologic Neurologic: Denies headache(s) or weakness Allergic/Immunologic Allergic/Immunologic ED: Denies lip swelling or urticaria EXAM Physical Exam Const Vital Signs: 07/07/22 07:08 Temperature 97.4 F L Temperature Source Temporal Pulse Rate 60 Respiratory Rate 18 Blood Pressure 195/97 H Blood Pressure Mean 129 Pulse Ox 99 Oxygen Delivery Method Room Air Positive well nourished and well developed General Appearance ED: well developed HEENT Reports normocephalic and head/scalp atraumatic HEENT Narrative: Dried blood right nares. Eyes PERRL and EOMs intact bilaterally Neck supple Chest Wall inspection of chest normal and palpation of chest normal Resp normal respiratory effort and clear to auscultation bilaterally Cardio regular rate and regular rhythm GI normal to inspection, nondistended, normoactive bowel sounds Palpation: soft Extremity normal to inspection Neuro oriented x3 and no sensory deficits noted Sensorium / Orientation: alert Motor Exam: strength 5/5 throughout Psych mental status grossly normal Skin no rashes or lesions noted MDM MDM MDM Narrative Medical decision making narrative: A cottonball soaked with Afrin and Cetacaine was placed in the right nare. Shortly after family came out stating that he was no bleeding from the left. I returned to the room and removed the cotton ball. A 5.5 cm Rhino Rocket is placed in the right nare without difficulty. After period of observation patient continued to have some mild bleeding from the distal aspect of his nose. 5.5 cm Rhino Rocket was removed and replaced with a 7.5. At this time bleeding is well controlled. Patient be treated with 3 days of antibiotics to prevent sinus infection. He is to follow-up with the ENT and will be given information to call for an appointment. Discharge Plan Triage Chief Complaint: Nosebleed ED Provider: Sandra Hernandez Dx/Rx/DC Orders Clinical Impression: Epistaxis Instructions: ED Epistaxis (Adult) Prescriptions: New amoxicillin 500 mg capsule 500 mg PO Q8H Qty: 24 0RF No Action hydrocodone-acetaminophen 1 EACH tablet 1 tab PO BID PRN PRN (Reason: Pain) Label Comments: potassium chloride 20 MEQ packet 20 meq PO DAILY Qty: 10 0RF Buspar 10 MG 10 mg PO TID doxepin 10 mg Capsule 10 mg PO DAILY tamsulosin 0.4 mg Capsule 0.4 mg PO BID ergocalciferol (vitamin D2) [Vitamin D2] 1,250 mcg (50,000 unit) Capsule 1,250 mcg PO QMONTH clopidogrel 75 mg Tablet 75 mg PO DAILY Qty: 21 0RF aspirin 81 mg Tablet,Chewable 81 mg PO BREAKFAST Qty: 90 1RF atorvastatin 40 mg tablet 40 mg PO QHS Qty: 30 0RF Rx Instructions: Decrease to 20 mg nightly if patient gets muscle pain furosemide 40 MG tablet 40 mg PO QODAY Qty: 0 0RF Label Comments: TAKE 1 TABLET EVERY DAY Rx Instructions: Hold for systolic blood pressure less than 120 mmHg clonidine 0.3 mg/24 hr Patch Weekly 1 patch TRANSDERMAL QWEEK Qty: 0 0RF Rx Instructions: Hold for systolic blood pressure less than 130 mmHg amlodipine 10 MG tablet 5 mg PO DAILY Qty: 0 0RF Rx Instructions: Hold for systolic blood pressure less than 120 mmHg Primary Care Provider: Kieran Gary Chi Referrals: Luis A Mukherjee MD [Med Staff - Active Staff] - 3-5 Days Kieran Gary Chi, MD [Primary Care Provider] - Activity Restrictions/Additional Instructions: Please call the ENT office today for an appointment in 3 days. Let them know you were seen in the emergency room and have nasal packing secondary to a nosebleed. Disposition Disposition: Home, Self Care
[2022-07-07] MEDS: Tetracaine/Benzocaine/Butamben 1 APPLIC TOPICAL (08:10)
[2022-07-07] MEDS: Oxymetazoline 0.05% 1 SPRAY SPRAY.BTL 2 SPRAY NASAL (08:10)
[2022-07-07 09:36] VITALS: BP 131/75; PULSE 62; RESP 15; O2SAT 96
== END 2022-07-07 09:36 | disposition home or self-care (01) ==
PROVIDERS: Emergency Provider Emergency Medicine; PCP Family Medicine Geriatric Medicine; Visit Provider Emergency Medicine
DX: R04.0 Epistaxis (principal); I10 Essential (primary) hypertension; Z79.82 Long term (current) use of aspirin; N40.0 Benign prostatic hyperplasia without lower urinary tract symptoms; Z86.73 Personal history of transient ischemic attack (TIA), and cerebral infarction without residual deficits
CPT/HCPCS: 30901; 99284

== ENCOUNTER → 2022-09-25 | Outpatient (CLI) | payer MEDICARE, SELFPAY ==
[2022-09-25 16:00] LABS: Absolute Neutrophil Count 2.6 X10^3/uL (2.0-7.7); Basophil# 0.04 X10^3/uL; Basophil% 0.9 % (0-1); Eosinophil# 0.11 X10^3/uL; Eosinophils% 2.5 % (0-5); Hematocrit 34.1 % (40-54); Lymphocyte % 25.5 % (19-41); Mean Corp Hgb Conc 32.3 g/dL (32-36); Mean Corpuscular Hgb 31.6 pg (27.0-32.0); Mean Platelet Vol. 10.8 fl (6.2-12.0); Monocyte# 0.47 X10^3/uL; Monocyte% 10.9 % (0-10); NRBC Flagged by Analyzer 0 % (0-5); Neutrophil # 2.59 X10^3/uL (2.7-7.7); Platelet Count 168 K/mm3 (150-450); RBC Distribution Width CV 13.5 % (11.6-14.6); RBC Distribution Width SD 48.2 fl (35.1-43.9); Red Blood Count 3.48 M/mm3 (4.6-6.2); White Blood Count 4.3 K/mm3 (4.4-11.0)
[2022-09-25 16:56] LABS: AST(SGOT) 24 U/L (15-37); Alanine Aminotransfer ALT/SGPT 24 U/L (16-61); Albumin, Serum 2.9 g/dL (3.2-5.0); Alkaline Phosphatase 107 U/L (45-117); Anion Gap 3 (5-15); BUN 22 mg/dL (7-18); BUN/Creat Ratio 11.4 RATIO (10-20); Calcium,Total 7.9 mg/dL (8.5-10.1); Chloride 110 mmol/L (98-107); Creatinine, Serum 1.93 mg/dL (0.70-1.30); EST Glomerular Filtration Rate 35 mL/min (>60); Est Glom Filt Rate - Afr Amer 43 mL/min (>60); Globulin 2.9 g/dL (2.2-4.2); Glucose 107 mg/dL (74-106); Potassium 4.6 mmol/L (3.5-5.1); Protein, Total 5.8 g/dL (6.4-8.2); Sodium Level 138 mmol/L (136-145); Thyroid Stim Hormone (TSH) 1.57 uIU/mL (0.358-3.74)
== END | disposition home or self-care (01) ==
LOC: LAB 14:56
PROVIDERS: PCP Family Medicine Geriatric Medicine; Referring Provider Family Medicine Geriatric Medicine; Visit Provider Family Medicine Geriatric Medicine
DX: I10 Essential (primary) hypertension (principal); E55.9 Vitamin D deficiency, unspecified
CPT/HCPCS: 36415; 80053; 82306; 84443; 85025

== ENCOUNTER → 2022-12-22 | Outpatient (CLI) | payer MEDICARE, SELFPAY | END | disposition home or self-care (01) | LOC: PSN 12:13 | PROVIDERS: PCP Family Medicine Geriatric Medicine; Referring Provider Family Medicine Geriatric Medicine; Visit Provider Family Medicine Geriatric Medicine | DX: R68.83 Chills (without fever) (principal) | CPT/HCPCS: 87635; 87804; 87807; C9803 ==

== ENCOUNTER → 2023-04-08 | Outpatient (CLI) | payer MEDICARE, SELFPAY ==
--- OUTSIDE RECORDS SUMMARY | 2023-04-08 14:11 | XMS RPT_ITS | CCD ---
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 Tier Lift Truck Operator Name Role Phone Karma Gary Chi Primary Care Provider [phone] JOHN DURAN Attending Unavailable KARMA GARY CHI Primary Care Unavailable JOHN DURAN Referring Unavailable KARMA GARY [facility] Primary Care Unavailable JOHN DURAN Referring Unavailable JOHN DURAN Attending Unavailable Medications Completed/Discontinued Medications Medication Drug Class(es) Dates Sig (Normalized) Sig (Original) acetaminophen 325 mg / HYDROcodone bitartrate 7.5 mg oral tablet (6 sources) Opioid Agonist Start: 11-03-2014 take 1 tablet by mouth once as needed HYDROcodone-Aceta minophen (NORCO) 7.5-325 mg per tablet Take 1 tablet by mouth as needed. 0 11/03/2014 Active Problems Problem Classification Problem Date Documented Date Episodic/Chronic Allergic reactions (6 sources) Environmental allergy; Translations: [Other allergy status, other than to drugs and biological substances] 12-22-2008 Episodic Disorders of lipid metabolism (6 sources) Hyperlipidemia; Translations: [Hyperlipidemia, unspecified] 12-22-2008 Chronic Esophageal disorders (8 sources) Gastroesophageal reflux disease; Translations: [Gastro-esophageal reflux disease without esophagitis] Onset: 05-20-2022 12-22-2008 Chronic Essential hypertension (6 sources) Benign essential hypertension; Translations: [Essential (primary) hypertension] 12-22-2008 Chronic Osteoarthritis (6 sources) Degenerative joint disease of ankle AND/OR foot; Translations: [Primary osteoarthritis, unspecified ankle and foot] Onset: 10-16-2003 10-16-2003 Chronic Results Test Name Value Interpretation Reference Range Facil ity Vital Signs Date Time Vital Sign Value Performing Clinician Faci lity 09-03-2021 09:10-0400 Diastolic blood pressure 90 mm[Hg] John Duran MD Work Phone: [facility] 09-03-2021 09:10-0400 Heart rate 56 /min John Duran MD Work Phone: [facility] 09-03-2021 09:10-0400 Respiratory rate 18 /min John Duran MD Work Phone: [facility] 09-03-2021 09:10-0400 SaO2% (BldA) [Mass fraction] 99 % John Duran MD Work Phone: [facility] 09-03-2021 09:10-0400 Systolic blood pressure 156 mm[Hg] John Duran MD Work Phone: [facility] 09-03-2021 08:01-0400 Body height 175.3 cm John Duran MD Work Phone: [facility] 09-03-2021 08:01-0400 Body temperature 97.3 [degF] John Duran MD Work Phone: [facility] 09-03-2021 08:01-0400 Body weight 68.04 kg John Duran MD Work Phone: [facility] Encounters Encounter Date Encounter Type Care Provider Facility Start: 05-22-2022 Telephone encounter John rivera MD Work Phone: Gastroenterology Procedures Date Procedure Procedure Detail Performing Clinician Start: 09-03-2021 Esophagoscp rig napier soral hypopharynx crv esoph John Duran MD Work Phone: Start: 02-16-2019 Electrocardiogram Plan of Treatment Date Care Activity Detail Author Start: 04-06-2022 ADVANCE DIRECTIVE DISCUSSION ADVANCE DIRECTIVE DISCUSSION [facility] Start: 04-06-2022 DEPRESSION ASSESSMENT DEPRESSION ASSESSMENT [facility] Start: 02-16-2022 DIABETES SCREEN DIABETES SCREEN [facility] Start: 12-05-2021 Influenza vaccination INFLUENZA (#1) [facility] Start: 09-18-2021 COVID-19 VACCINE (5 - Booster for Moderna series) COVID-19 VACCINE (5 - Booster for Moderna series) [facility] Start: 06-24-2021 COVID-19 VACCINE (4 - Booster for Moderna series) COVID-19 VACCINE (4 - Booster for Moderna series) [facility] Start: 04-06-2021 ADVANCE DIRECTIVE DISCUSSION ADVANCE DIRECTIVE DISCUSSION [facility] Start: 04-06-2021 DEPRESSION ASSESSMENT DEPRESSION ASSESSMENT [facility] Start: 2002 PNEUMOCOCCAL: 65+ (1 - PCV) PNEUMOCOCCAL: 65+ (1 - PCV) [facility] Start: 11-15-1987 SHINGRIX VACCINE (1 of 2) SHINGRIX VACCINE (1 of 2) [facility] Start: 1956 Urine microalbumin profile DTAP,TDAP,TD (1 - Tdap) [facility] End: 09-03-2021 EGD - THERAPEUTIC, EUS, OR TUBE INTERVENTIONS EGD - THERAPEUTIC, EUS, OR TUBE INTERVENTIONS Endoscopy Routine Esophageal stenosis 1 Occurrences starting 09/03/2021 until 09/03/2021 [facility] Work Phone: Payers Date Payer Category Payer Medicare AETNA MEDICARE A ETNA MEDICARE PPO [id number] 2021-Present [phone] [address] [place] [address] [facility] [id number] 2021 Medicare AETNA MEDICARE A ETNA MEDICARE PPO [id number] 2021-Present [phone] [address] [place] [address] [facility] [id number] 2021 Medicare [id number] Social History Date Type Detail Facility Start: 11-03-2014 Tobacco smoking stat us [facility] Never smoked tobacco [facility] Start: 04-16-2021 End: 05-20-2022 Alcohol intake Current non-drinker of alcohol (finding) [facility] Start: 1935 Sex Assigned At Not on file [facility] Start: 08-24-2021 End: 09-03-2021 Exposure to SARS-CoV-2 (event) Not sure [facility] Start: 08-27-2021 End: 09-06-2021 Exposure to SARS-CoV-2 (event) Unable to assess [facility] Start: 11-03-2014 Tobacco use and exposure Smoke less tobacco non-user [facility] Note 05-27-2022 Telephone Encounter - Gladys Bernardo RN - 05/27/2022 11:36 AM ESTTelephone Encounter - Gladys Bernardo RN - 05/27/2022 11:29 AM EST Note Date & Type Note Facility 05-27-2022 Miscellaneous Notes Formattin g of this note might be different from the original. Spoke with Mr. Obando (cell) he needs refills of Lansoprazole and Busparone. He is aware that he should keep taking both. Attempted to call patient regarding medications that he inquired about-lansoprazole and buspirone, to advise to continue per Dr. Duran. Phone continued to ring, no voicemail option. Patient called stating that he feels great since having the EGD (05-20-22). Plus, yesterday was the first time he was able to really eat. However, inquiring about the medications (??) to prevent his throat from closing again?? Can he please speak to MD retort load expediter? Okay to send script to [facility] (link). Also, apologizes for the missed phone calls. Says he is aware he and 's vm are full, but they don't know how to clear them. Will ask one of their children to do so. documented in this encounter [facility] Note 04-09-2022 Telephone Encounter - Gladys Bernardo RN - 04/09/2022 9:39 AM ESTTelephone Encounter - John Duran MD - 04/08/2022 4:52 PM EST Note Date & Type Note Facility 04-09-2022 Miscellaneous Notes Formattin g of this note might be different from the original. Called patients home phone [phone], no answer, no answering machine. Called patients cell [phone], no answer, mailbox full-could not leave message. Called patient's 's cell , no answer, mailbox full-could not leave message. No phone number of Son to return call I'm not sure that is a good idea. What is the reason for colonoscopy? --In order to do a colonoscopy, a patient needs to be able to drink the prep - I would worry about the risk of aspiration with his esophagus issue --We generally stop colonoscopy at the age of 80. I wouldn't generally recommend a screening colonoscopy at his age Patient's son called wanting to schedule a colonoscopy. An order needs to be placed to schedule the colonoscopy with the EGD. Dr. Duran, please place a new order for a colonoscopy with EGD. The EGD is scheduled for 05/20/22. They want the colonoscopy at the same time. documented in this encounter [facility] Note 02-04-2022 Telephone Encounter - Cassandra Gorman RN - 02/04/2022 4:02 PM EDT Note Date & Type Note Facility 02-04-2022 Miscellaneous Notes Formattin g of this note might be different from the original. UNABLE TO LEAVE MESSAGE. VOICEMAIL IS FULL Cassandra Gorman RN documented in this encounter [facility] Note 09-30-2021 Telephone Encounter - Marshall Johnson - 09/30/2021 11:25 AM EDT Note Date & Type Note Facility 09-30-2021 Miscellaneous Notes Patient's request for medication is as follows: Pending Prescriptions Disp Refills BUSPIRONE 10 MG TABLET 270 tablet 3 Sig: Take 1 tablet by mouth three times daily. 30 min before meals DARREL: No Patient is requesting this refill go to [facility]. documented in this encounter [facility] Nurse Note 09-03-2021 Gala Mercado RN - 09/03/2021 9:03 AM Konrad Santo RN - 09/03/2021 7:53 AM EDT Note Date & Type Note Facility 09-03-2021 Nurse Note AMBULATORY PATIENT EDUCATION NOTE TOPIC: GI PROCEDURES: Colonoscopy with or without biopsies based on clinical findings Esophagogastroduodenoscopy(EGD) for control of bleeding,dilation(any means),imaging,tube placement READINESS TO LEARN INSTRUCTION PROVIDED TO: Patient, readness to learn accessed prior to procedure and Family member COGNITIVE ABILITY: Alert and oriented PTED MOTIVATION TO LEARN: Eager Interested FAMILY SUPPORT: High - Very involved in pt care IPATIENT LEARNS BEST BY: Individual Instruction Written Instruction - Hand-outs Verbal Instruction FACTORS AFFECTING LEARNING: None PHYSICAL LIMITATIONS AFFECTING LEARNING: None LEARNING RESPONSE METHOD OF INSTRUCTION: Individual instruction PATIENT / FAMILY RESPONSE: Verbalizes understanding of: WORSENING CONDITION-Signs and symptoms of a worsening condition that warrant a call to the physician FOLLOW-UP PLAN: Patient instructed to call with any further issues SUPPLEMENTAL MATERIAL: Procedure Discharge Instructions REFERRAL (RECOMMENDATION): None PRE OP LEARNING ASSESSMENT PROCEDURE/SURGERY: GI PROCEDURES: EGD READINESS TO LEARN COGNITIVE ABILITY: Alert and oriented MOTIVATION TO LEARN: Interested FAMILY SUPPORT: None - Unavailable/disinterested PATIENT LEARNS BEST BY: Individual Instruction FACTORS AFFECTING LEARNING: None PHYSICAL LIMITATIONS AFFECTING LEARNING: None Electronically Signed By: Roberta Hansa, RN In Department: GASTROENTEROLOGY documented in this encounter [facility] History and physical note 09-03-2021 John Duran MD - 09/03/2021 9:00 AM EDT Note Date & Type Note Facility 09-03-2021 History and physi ivelisse note HISTORY AND PHYSICAL Milton Obando, 85 year old male Current history and physical on file: Yes Is a new History and Physical required for today's visit? Yes Indication for procedure: Dysphagia PROCEDURE(S) SCHEDULED FOR: Dilation (any means), treatment of bleeding (any means) based on clinical findings and EGD (Esophagogastroduodenoscopy) with or without biopsies, removal of polyps or lesions, dilation ( any means), treatment of bleeding ( any means), Barrx treatment of Jared's Esophagus, image tube placement or cryo therapy treatment based on clinical findings. BASELINE BEHAVIOR: Calm BASELINE ORIENTATION: A & O x3 All medications and allergies reviewed: Yes Skin Assessment: Warm dry mucus membranes pink Airway/Respiratory Assessment: Airway: visualization of the uvula- Yes Mouth: opening greater than 2 fingerbreadths- Yes Neck: full range of motion- Yes Breath sounds clear/equal- Yes Cardiac Assessment: Regular rate and rhythm without murmur Abdominal Assessment: Abdomen soft, non-tender, no masses or organomegaly. Sedation Plan: Moderate Additional Comments: None John Duran MD documented in this encounter [facility] Note 08-27-2021 Telephone Encounter - Marshall Johnson - 08/27/2021 12:54 PM EDT Note Date & Type Note Facility 08-27-2021 Miscellaneous Notes Patient's request for medication is as follows: Pending Prescriptions Disp Refills LANSOPRAZOLE 30 MG CAPSULE,DELAYED RELEASE 180 capsule 3 Sig: Take 1 capsule by mouth twice daily. 30 min before breakfast and dinner. Open capsule and take with small amount of yogurt DARREL: No e- [facility] [address] [place] [address] [address] [phone] documented in this encounter [facility] Evaluation note Note Date & Type Note Facility documented in this encounter [facility] Reason for referral (narrative) Outpatient Procedure (Routine) - Closed Note Date & Type Note Facility Referral ID Status Reason Start Date Expiration Date V isits Requested Visits Authorized [id number] Closed Auto-Generate d Referral 04/16/2021 04/16/2022 1 1 [facility] Reason for visit Narrative Outpatient Procedure (Routine) - Closed Note Date & Type Note Facility Referral ID Status Reason Start Date Expiration Date V isits Requested Visits Authorized [id number] Closed Auto-Generate d Referral 04/16/2021 04/16/2022 1 1 [facility] Summary Purpose Family History No Family History Records FoundNo Family History Records FoundNo Family History Records Found Advance Directives No Advanced Directives Records FoundDocuments on File Type Date Recorded 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 Advance Directive(s) 02/16/2019 12:35 PM Documents on File Type Date Recorded 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 Advance Directive(s) 02/16/2019 12:35 PM Medications Administered Section Inactive Administered Medications - up to 3 most recent administrations Medication Order MAR Action Action Date Dose Rate Site benzocaine 20% (TOPEX) TOPICAL, NEEDED, Starting on Thu09/03/21 at 0835, Until Thu09/03/21 at 0835 Given 09/03/2021 8:35 AM EDT 1 [place] fentaNYL 50 mcg/mL injection (SUBLIMAZE) INTRAVENOUS, NEEDED, Starting on Thu09/03/21 at 0840, Until Thu09/03/21 at 0840 Given 09/03/2021 8:40 AM EDT 75 mcg midazolam (PF) injection (VERSED) INTRAVENOUS, NEEDED, Starting on Thu09/03/21 at 0840, Until Thu09/03/21 at 0840 Given 09/03/2021 8:40 AM EDT 3 mg NaCl 0.9% iv infusion INTRAVENOUS, X (ONE-STEP ONLY) CONTINUOUS PRN, Starting on Thu09/03/21 at 0842, Until 09/03/21 at 0842 New Bag/Syringe/Bottle 09/03/2021 8:42 AM EDT 500 mL Additional Source Comments (unrecognized sect ion and content) No Status Records FoundNo Status Records FoundNo Status Records Found INFORMATION SOURCE (unrecogn ized section and content) DATE CREATED AUTHOR AUTHOR'S ORGANIZ ATION 02/18/2019 [facility] DATE CREATED AUTHOR AUTHOR'S ORGANIZ ATION 05/28/2022 [facility] Source Comments (unrecognize d section and content) In the event this informatio n is protected by the Federal Confidentiality of Alcohol and Drug Abuse Patient Records regulations: The Federal rules restrict any use of the information to criminally investigate or prosecute any alcohol or drug abuse patient.[facility] the event this information is protected by the Federal Confidentiality of Alcohol and Drug Abuse Patient Records regulations: The Federal rules restrict any use of the information to criminally investigate or prosecute any alcohol or drug abuse patient.[facility] the event this information is protected by the Federal Confidentiality of Alcohol and Drug Abuse Patient Records regulations: The Federal rules restrict any use of the information to criminally investigate or prosecute any alcohol or drug abuse patient.[facility] the event this information is protected by the Federal Confidentiality of Alcohol and Drug Abuse Patient Records regulations: The Federal rules restrict any use of the information to criminally investigate or prosecute any alcohol or drug abuse patient.[facility] the event this information is protected by the Federal Confidentiality of Alcohol and Drug Abuse Patient Records regulations: The Federal rules restrict any use of the information to criminally investigate or prosecute any alcohol or drug abuse patient.[facility] the event this information is protected by the Federal Confidentiality of Alcohol and Drug Abuse Patient Records regulations: The Federal rules restrict any use of the information to criminally investigate or prosecute any alcohol or drug abuse patient.[facility] Reason for Visit (unrecogniz ed section and content) Reason Onset Date Comments Refill Request 09/30/2021 Reason Comments Appointment 02/11 Reason Comments Patient Question Reason Comments Medication Follow-up Medication Problem Care Teams (unrecognized sec tion and content) Tier Lift Truck Operator Relationship Specialty Start Date End Date Karma Gary Chi PCP - General 12/14/08 Tier Lift Truck Operator Relationship Specialty Start Date End Date Karma Gary Chi PCP - General 12/14/08 Tier Lift Truck Operator Relationship Specialty Start Date End Date Karma Gary Chi PCP - General 12/14/08 FOR RECORDS PERTAINING TO PATIENTS WHO ARE OR HAVE BEEN ENROLLED IN A CHEMICAL DEPENDENCY/SUBSTANCEABUSE PROGRAM, SOME INFORMATION MAY BE OMITTED. This clinical summary was aggregated from multiple sources. Caution should be exercised in using it in the provision of clinical care. This summary normalizes information from multiple sources, and as a consequence, information in this document may materially change the coding, format and clinical context of patient data. In addition, data may be omitted in some cases. CLINICAL DECISIONS SHOULD BE BASED ON THE PRIMARY CLINICAL RECORDS. [facility] [employer], [facility]. provides no warranty or guarantee of the accuracy or completeness of information in this document.
[2023-04-08 15:18] LABS: Absolute Lymphocyte Count 0.94 X10^3/uL (0.83-4.51); Absolute Neutrophil Count 4.3 X10^3/uL (2.0-7.7); Basophil# 0.06 X10^3/uL; Eosinophil# 0.11 X10^3/uL; Eosinophils% 1.9 % (0-5); Hematocrit 39.4 % (40-54); Hemoglobin 12.5 g/dL (13.0-16.5); Lymphocyte # 0.94 X10^3/ul (0.83-4.51); Lymphocyte % 15.9 % (19-41); Mean Corp Hgb Conc 31.7 g/dL (32-36); Mean Corpuscular Volume 97.8 fL (80-94); Mean Platelet Vol. 11.3 fl (6.2-12.0); Monocyte# 0.47 X10^3/uL; Monocyte% 7.9 % (0-10); NRBC Flagged by Analyzer 0 % (0-5); Neutrophil # 4.31 X10^3/uL (2.7-7.7); Neutrophil % 72.8 % (47-70); Platelet Count 192 K/mm3 (150-450); RBC Distribution Width SD 50.3 fl (35.1-43.9); Red Blood Count 4.03 M/mm3 (4.6-6.2); White Blood Count 5.9 K/mm3 (4.4-11.0)
[2023-04-08 15:24] LABS: Vitamin D,25 Hydroxy 43.1 ng/mL
[2023-04-08 15:33] LABS: ALB/GLOB Ratio 0.9 RATIO (0.9-2.4); AST(SGOT) 24 U/L (15-37); Alanine Aminotransfer ALT/SGPT 22 U/L (16-61); Albumin, Serum 3.1 g/dL (3.2-5.0); Alkaline Phosphatase 122 U/L (45-117); Anion Gap 5 (5-15); BUN 21 mg/dL (7-18); BUN/Creat Ratio 10.3 RATIO (10-20); Calcium,Total 8.1 mg/dL (8.5-10.1); Chloride 113 mmol/L (98-107); Creatinine, Serum 2.03 mg/dL (0.70-1.30); EST Glomerular Filtration Rate 33 mL/min (>60); Est Glom Filt Rate - Afr Amer 40 mL/min (>60); Globulin 3.3 g/dL (2.2-4.2); Glucose 147 mg/dL (74-106); Potassium 4.6 mmol/L (3.5-5.1); Protein, Total 6.4 g/dL (6.4-8.2); Sodium Level 142 mmol/L (136-145); Thyroid Stim Hormone (TSH) 1.85 uIU/mL (0.358-3.74)
== END | disposition home or self-care (01) ==
LOC: POLAB3 13:41
PROVIDERS: PCP Family Medicine Geriatric Medicine; Visit Provider Family Medicine Geriatric Medicine
DX: I10 Essential (primary) hypertension (principal); E55.9 Vitamin D deficiency, unspecified
CPT/HCPCS: 36415; 80053; 82306; 84443; 85025

== ENCOUNTER → 2023-05-18 | Outpatient (CLI) | payer MEDICARE, SELFPAY ==
[2023-05-18 14:54] LABS: Albumin, Serum 3.3 g/dL (3.2-5.0); BUN 20 mg/dL (7-18); BUN/Creat Ratio 10.3 RATIO (10-20); Chloride 115 mmol/L (98-107); Creatinine, Serum 1.94 mg/dL (0.70-1.30); EST Glomerular Filtration Rate 35 mL/min (>60); Est Glom Filt Rate - Afr Amer 43 mL/min (>60); Glucose 107 mg/dL (74-106); Potassium 4.3 mmol/L (3.5-5.1); Sodium Level 146 mmol/L (136-145)
[2023-05-18 15:00] LABS: Protein, Urine (Random) 219.5 mg/dL (<11.9); Protein:Creat Ratio 1193 mg/g CRE (0-200)
--- OUTSIDE RECORDS SUMMARY | 2023-05-18 17:49 | XMS RPT_ITS | CCD ---
Author Name Unknown Address [address] [place] [address] Organization [facility] Care Team Providers Care Lean Engineer Name Role Phone Kieran Gary Chi Primary Care Provider KIERAN GARY CHI Primary Care Unavailable JOHN DURAN [...] 90 mm[Hg] John Duran MD Work Phone: [facility] 09-03-2021 09:10-0400 Heart rate 56 /min John Duran MD Work Phone: [facility] 09-03-2021 09:10-0400 Respiratory rate 18 /min John Duran MD Work Phone: [facility] 09-03-2021 09:10-0400 SaO2% (BldA) [Mass fraction] 99 % John Duran MD Work Phone: [facility] 09-03-2021 09:10-0400 Systolic blood pressure 156 mm[Hg] John Duran MD Work Phone: [facility] 09-03-2021 08:01-0400 Body height 175.3 cm John Duran MD Work Phone: [facility] 09-03-2021 08:01-0400 Body temperature 97.3 [degF] John Duran MD Work Phone: [facility] 09-03-2021 08:01-0400 Body weight 68.04 kg John Duran MD Work Phone: [facility] Encounters Encounter Date Encounter Type Care Provider Facility Start: 05-22-2022 Telephone encounter John rivera MD Work Phone: Gastroenterology Procedures Date Procedure Procedure Detail Performing Clinician Start: 09-03-2021 Esophagoscp rig napier soral hypopharynx crv esoph John Duran MD Work Phone: Start: 02-16-2019 Electrocardiogram Plan of Treatment Date Care Activity Detail Author Start: 04-06-2022 ADVANCE DIRECTIVE DISCUSSION ADVANCE DIRECTIVE DISCUSSION [facility] Start: 04-06-2022 DEPRESSION ASSESSMENT DEPRESSION ASSESSMENT [facility] Start: 02-16-2022 DIABETES SCREEN DIABETES SCREEN [facility] Start: 12-05-2021 Influenza vaccination INFLUENZA (#1) [facility] Start: 09-18-2021 COVID-19 VACCINE (5 - Booster for Moderna series) COVID-19 VACCINE (5 - Booster for Moderna series) [facility] Start: 06-24-2021 COVID-19 VACCINE (4 - Booster for Moderna series) COVID-19 VACCINE (4 - Booster for Moderna series) [facility] Start: 04-06-2021 ADVANCE DIRECTIVE DISCUSSION ADVANCE DIRECTIVE DISCUSSION [facility] Start: 04-06-2021 DEPRESSION ASSESSMENT DEPRESSION ASSESSMENT [facility] Start: 2002 PNEUMOCOCCAL: 65+ (1 - PCV) PNEUMOCOCCAL: 65+ (1 - PCV) [facility] Start: 11-15-1987 SHINGRIX VACCINE (1 of 2) SHINGRIX VACCINE (1 of 2) [facility] Start: 1956 Urine microalbumin profile DTAP,TDAP,TD (1 - Tdap) [facility] End: 09-03-2021 EGD - THERAPEUTIC, EUS, OR TUBE INTERVENTIONS EGD - THERAPEUTIC, EUS, OR TUBE INTERVENTIONS Endoscopy Routine Esophageal stenosis 1 Occurrences starting 09/03/2021 until 09/03/2021 [facility] Work Phone: Payers Date Payer Category Payer Medicare AETNA MEDICARE A ETNA MEDICARE PPO [id number] 2021-Present [phone] [address] [place] [address] [facility] [id number] 2021 Medicare AETNA MEDICARE A ETNA MEDICARE PPO [id number] 2021-Present [phone] [address] [place] [address] [facility] [id number] 2021 Medicare [id number] Social History Date Type Detail Facility Start: 11-03-2014 Tobacco smoking stat us [facility] Never smoked tobacco [facility] Start: 04-16-2021 End: 05-20-2022 Alcohol intake Current non-drinker of alcohol (finding) [facility] Start: 1935 Sex Assigned At Not on file [facility] Start: 08-24-2021 End: 09-03-2021 Exposure to SARS-CoV-2 (event) Not sure [facility] Start: 08-27-2021 End: 09-06-2021 Exposure to SARS-CoV-2 (event) Unable to assess [facility] Start: 11-03-2014 Tobacco use and exposure Smoke less tobacco non-user [facility] Note 05-27-2022 Telephone Encounter - Gladys Bernardo [...] again?? Can he please speak to MD cis coordinator? Okay to send script to [facility] Howard (link). Also, apologizes for the missed phone calls. Says he is aware he and 's vm are full, but they don't know how to clear them. Will ask one of their children to do so. documented in this encounter [facility] Note 04-09-2022 Telephone Encounter - Gladys Bernardo RN - 04/09/2022 9:39 AM ESTTelephone Encounter - John Duran MD - 04/08/2022 4:52 PM EST Note Date & Type Note Facility 04-09-2022 Miscellaneous Notes Formattin g of this note might be different from the original. Called patients home phone [phone], no answer, no answering machine. Called patients cell [phone], no answer, mailbox full-could not leave message. [...] the same time. documented in this encounter [facility] Note 02-04-2022 Telephone Encounter - Cassandra Gorman RN - 02/04/2022 4:02 PM EDT Note Date & Type Note Facility 02-04-2022 Miscellaneous Notes Formattin g of this note might be different from the original. UNABLE TO LEAVE MESSAGE. VOICEMAIL IS FULL Cassandra Gorman RN documented in this encounter [facility] Note 09-30-2021 Telephone Encounter - Marshall Johnson - 09/30/2021 11:25 AM EDT Note Date & Type Note Facility 09-30-2021 Miscellaneous Notes Patient's request for medication is as follows: Pending Prescriptions Disp Refills BUSPIRONE 10 MG TABLET 270 tablet 3 Sig: Take 1 tablet by mouth three times daily. 30 min before meals DARREL: No Patient is requesting this refill go to [facility]. documented in this encounter [facility] Nurse Note 09-03-2021 Gala Mercado RN - [...] AFFECTING LEARNING: None Electronically Signed By: Roberta Santo RN In Department: GASTROENTEROLOGY documented in this encounter [facility] History and physical note 09-03-2021 John Duran [...] John Duran MD documented in this encounter [facility] Note 08-27-2021 Telephone Encounter - Marshall Johnson [...] small amount of yogurt DARREL: No e- [facility] [address] [facility] [place] [address] [address] - [phone] documented in this encounter [facility] Evaluation note Note Date & Type Note Facility documented in this encounter [facility] Reason for referral (narrative) Outpatient Procedure (Routine) - Closed Note Date & Type Note Facility Referral ID Status Reason Start Date Expiration Date V isits Requested Visits Authorized [id number] Closed Auto-Generate d Referral 04/16/2021 04/16/2022 1 1 [facility] Reason for visit Narrative Outpatient Procedure (Routine) - Closed Note Date & Type Note Facility Referral ID Status Reason Start Date Expiration Date V isits Requested Visits Authorized [id number] Closed Auto-Generate d Referral 04/16/2021 04/16/2022 1 1 [facility] Summary Purpose Family History No Family History Records FoundNo Family History Records FoundNo Family History Records Found Advance Directives No Advanced Directives Records FoundDocuments on File Type Date Recorded 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 Advance Directive(s) 02/16/2019 12:35 PM Documents on File Type Date Recorded 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 Advance Directive(s) 02/16/2019 12:35 PM Medications Administered Section Inactive Administered Medications - up to 3 most recent administrations Medication Order MAR Action Action Date Dose Rate Site benzocaine 20% (TOPEX) TOPICAL, NEEDED, Starting on Thu09/03/21 at 0835, Until Thu09/03/21 at 0835 Given 09/03/2021 8:35 AM EDT 1 Rainbow fentaNYL 50 mcg/mL injection (SUBLIMAZE) INTRAVENOUS, NEEDED, Starting on Thu09/03/21 at 0840, Until Thu09/03/21 at 0840 Given 09/03/2021 8:40 AM EDT 75 mcg midazolam (PF) injection (VERSED) INTRAVENOUS, NEEDED, Starting on Thu09/03/21 at 0840, Until Thu09/03/21 at 0840 Given 09/03/2021 8:40 AM EDT 3 mg NaCl 0.9% iv infusion INTRAVENOUS, X (ONE-STEP ONLY) CONTINUOUS PRN, Starting on Thu09/03/21 at 0842, Until Thu09/03/21 at 0842 New Bag/Syringe/Bottle 09/03/2021 8:42 AM EDT 500 mL Additional Source Comments (unrecognized sect ion and content) No Status Records FoundNo Status Records FoundNo Status Records Found INFORMATION SOURCE (unrecogn ized section and content) DATE CREATED AUTHOR AUTHOR'S ORGANIZ ATION 02/18/2019 [facility] DATE CREATED AUTHOR AUTHOR'S ORGANIZ ATION 04/20/2023 [facility] Source Comments (unrecognize d section and content) In the event this informatio n is protected by the Federal Confidentiality of Alcohol and Drug Abuse Patient Records regulations: The Federal rules restrict any use of the information to criminally investigate or prosecute any alcohol or drug abuse patient.[facility] the event this information is protected by the Federal Confidentiality of Alcohol and Drug Abuse Patient Records regulations: The Federal rules restrict any use of the information to criminally investigate or prosecute any alcohol or drug abuse patient.[facility] the event this information is protected by the Federal Confidentiality of Alcohol and Drug Abuse Patient Records regulations: The Federal rules restrict any use of the information to criminally investigate or prosecute any alcohol or drug abuse patient.[facility] the event this information is protected by the Federal Confidentiality of Alcohol and Drug Abuse Patient Records regulations: The Federal rules restrict any use of the information to criminally investigate or prosecute any alcohol or drug abuse patient.[facility] the event this information is protected by the Federal Confidentiality of Alcohol and Drug Abuse Patient Records regulations: The Federal rules restrict any use of the information to criminally investigate or prosecute any alcohol or drug abuse patient.[facility] the event this information is protected by the Federal Confidentiality of Alcohol and Drug Abuse Patient Records regulations: The Federal rules restrict any use of the information to criminally investigate or prosecute any alcohol or drug abuse patient.[facility] Reason for Visit (unrecogniz ed section and content) Reason Onset Date Comments Refill Request 09/30/2021 Reason Comments Appointment 02/11 Reason Comments Patient Question Reason Comments Medication Follow-up Medication Problem Care Teams (unrecognized sec tion and content) Lean Engineer Relationship Specialty Start Date End Date Kieran Gary Chi PCP - General 12/14/08 Lean Engineer Relationship Specialty Start Date End Date Kieran Gary Chi PCP - General 12/14/08 Lean Engineer Relationship Specialty Start Date End Date Kieran Gary Chi PCP - General 12/14/08 FOR [...] BE BASED ON THE PRIMARY CLINICAL RECORDS. [facility] [employer] provides no warranty or guarantee of the accuracy or completeness of information in this document.
== END | disposition home or self-care (01) ==
LOC: LAB 13:44
PROVIDERS: PCP Family Medicine Geriatric Medicine; Referring Provider Internal Medicine Nephrology; Visit Provider Internal Medicine Nephrology
DX: N18.4 Chronic kidney disease, stage 4 (severe) (principal)
CPT/HCPCS: 36415; 80069; 82570; 84156

== ENCOUNTER → 2023-10-14 | Outpatient (CLI) | payer MEDICARE, SELFPAY ==
[2023-10-14 14:23] LABS: Absolute Lymphocyte Count 1.04 X10^3/uL (0.83-4.51); Absolute Neutrophil Count 3.2 X10^3/uL (2.0-7.7); Basophil# 0.04 X10^3/uL; Basophil% 0.8 % (0-1); Eosinophil# 0.09 X10^3/uL; Eosinophils% 1.9 % (0-5); Hematocrit 36.1 % (40-54); Hemoglobin 11.6 g/dL (13.0-16.5); Lymphocyte # 1.04 X10^3/ul (0.83-4.51); Lymphocyte % 21.8 % (19-41); Mean Corp Hgb Conc 32.1 g/dL (32-36); Mean Corpuscular Hgb 31.3 pg (27.0-32.0); Mean Corpuscular Volume 97.3 fL (80-94); Mean Platelet Vol. 11.3 fl (6.2-12.0); Monocyte# 0.37 X10^3/uL; Monocyte% 7.7 % (0-10); NRBC Flagged by Analyzer 0 % (0-5); Neutrophil # 3.23 X10^3/uL (2.7-7.7); Neutrophil % 67.6 % (47-70); Platelet Count 159 K/mm3 (150-450); RBC Distribution Width CV 13.9 % (11.6-14.6); Red Blood Count 3.71 M/mm3 (4.6-6.2); White Blood Count 4.8 K/mm3 (4.4-11.0)
[2023-10-14 14:46] LABS: Vitamin D,25 Hydroxy 36.8 ng/mL
[2023-10-14 14:57] LABS: ALB/GLOB Ratio 1.1 RATIO (0.9-2.4); AST(SGOT) 32 U/L (15-37); Alanine Aminotransfer ALT/SGPT 24 U/L (16-61); Albumin, Serum 3.1 g/dL (3.2-5.0); Alkaline Phosphatase 104 U/L (45-117); Anion Gap 5 (5-15); BUN 21 mg/dL (7-18); BUN/Creat Ratio 10.2 RATIO (10-20); Calcium,Total 8.1 mg/dL (8.5-10.1); Chloride 114 mmol/L (98-107); Creatinine, Serum 2.05 mg/dL (0.70-1.30); EST Glomerular Filtration Rate 33 mL/min (>60); Est Glom Filt Rate - Afr Amer 40 mL/min (>60); Globulin 2.9 g/dL (2.2-4.2); Glucose 103 mg/dL (74-106); Potassium 4.1 mmol/L (3.5-5.1); Sodium Level 143 mmol/L (136-145); Thyroid Stim Hormone (TSH) 1.94 uIU/mL (0.358-3.74)
== END | disposition home or self-care (01) ==
LOC: LAB 13:41
PROVIDERS: PCP Family Medicine Geriatric Medicine; Referring Provider Family Medicine Geriatric Medicine; Visit Provider Family Medicine Geriatric Medicine
DX: I10 Essential (primary) hypertension (principal); E55.9 Vitamin D deficiency, unspecified
CPT/HCPCS: 36415; 80053; 82306; 84443; 85025

== ENCOUNTER → 2023-12-14 | Outpatient (CLI) | payer MEDICARE, SELFPAY | END | disposition home or self-care (01) | LOC: POLAB3 16:44 | PROVIDERS: PCP Family Medicine Geriatric Medicine; Visit Provider Family Medicine Geriatric Medicine | DX: R68.83 Chills (without fever) (principal) | CPT/HCPCS: 87631 ==

== ENCOUNTER → 2024-02-03 | Outpatient (CLI) | payer MEDICARE, SELFPAY ==
[2024-02-03 10:58] LABS: PTHIN 104.4 pg/mL (18.4-80.1)
[2024-02-03 11:02] LABS: Albumin, Serum 3.2 g/dL (3.2-5.0); BUN 22 mg/dL (7-18); Calcium,Total 8.6 mg/dL (8.5-10.1); Chloride 113 mmol/L (98-107); EST Glomerular Filtration Rate 34 mL/min (>60); Est Glom Filt Rate - Afr Amer 41 mL/min (>60); Glucose 88 mg/dL (74-106); Phosphorus 3.7 mg/dL (2.5-4.9); Potassium 5.1 mmol/L (3.5-5.1); Sodium Level 142 mmol/L (136-145)
[2024-02-03 11:06] LABS: Protein, Urine (Random) 83.1 mg/dL (<11.9); Protein:Creat Ratio 823 mg/g CRE (0-200)
== END | disposition home or self-care (01) ==
LOC: LAB 09:40
PROVIDERS: PCP Family Medicine Geriatric Medicine; Referring Provider Internal Medicine Nephrology; Visit Provider Internal Medicine Nephrology
DX: N18.32 Chronic kidney disease, stage 3b (principal); R80.9 Proteinuria, unspecified
CPT/HCPCS: 36415; 80069; 82570; 83970; 84156

== ENCOUNTER 2024-03-31 10:10 | Emergency (ER) | payer MEDICARE, SELFPAY ==
[2024-03-31 10:11] VITALS: BP 175/116; PULSE 90; RESP 25; TEMP 36.6; O2SAT 96; BMI 22.8
--- NOTE | 2024-03-31 10:55 | CT_ITS ---
EXAM: CT HEAD WITHOUT INTRAVENOUS CONTRAST CLINICAL INDICATION: weakness TECHNIQUE: Multiple axial images were obtained of the head without intravenous contrast. This CT exam was performed using one or more of the following dose reduction techniques: automated exposure control, adjustment of the mA and/or kV according to patient size, and/or use of iterative reconstruction technique. RADIATION DOSE: CTDIvol = 44.99 mGy, DLP = 812.98 mGy-cm COMPARISON: CT head and CTA head and neck 02/09/2021. FINDINGS: BRAIN AND EXTRA-AXIAL SPACES: Unremarkable. No intra- or extra-axial hemorrhage. No evidence of acute infarct. No intracranial mass or mass effect. There is preservation of the asif/white matter interface. Posterior fossa structures are unremarkable. Ventricles are appropriate for age. No hydrocephalus. Basal cisterns are patent. BONES/JOINTS: Unremarkable. No discrete lytic or blastic abnormalities. SINUSES: Unremarkable as visualized. Clear. MASTOID AIR CELLS: Unremarkable. Clear. ORBITS: Visualized globes, extraocular muscles, optic nerves and retrobulbar fat appear unremarkable. CT/Brain/Head without Contrast IMPRESSION: Negative head/brain CT without intravenous contrast and unchanged. Electronically Signed: Ochoa Benjamin MD at 12:46 EST ,
--- NOTE | 2024-03-31 10:55 | EKG12_ITS ---
Test Reason : Blood Pressure : */* mmHG Vent. Rate : 72 BPM Atrial Rate : * BPM P-R Int : * ms QRS Dur : 86 ms QT Int : 402 ms P-R-T Axes : * -2 19 degrees QTcB Int : 440 ms Atrial fibrillation with premature ventricular or aberrantly conducted complexes Low voltage QRS Septal infarct , age undetermined Abnormal ECG Confirmed by BOBO PALACIOS, TRISHA ([id number]), technical writer and editor LORI MIX ([id number]) on 04/01/2024 9:43:56 AM Referred By: BENITA Confirmed By: TRISHA BROUSSARD MD
--- NOTE | 2024-03-31 10:56 | EDS_ITS ---
HPI History of Present Illness Chief Complaint: Weakness Informant: patient and family Narrative Narrative: Brought in by EMS from home son is currently present. States awakening 7 AM this morning just feeling tingling all over and weak. He went to bed at 8 PM a nd felt fine. He lives alone. There was Una green party and birthday green party yesterday he does not have any increased activities. He ambulates without any assistance. No headache. No chest pains. No abdominal pain. No vomiting diarrhea. No urinary symptoms. Per son had a small stroke 2 years ago, no residual deficits. [facility] Medical History Acute CVA (cerebrovascular accident) Hypertension BPH (benign prostatic hyperplasia) Home Medications ?Medication ?Instructions ?Recorded ?Last Taken ?Type hydrocodone 7.5 mg-acetaminophen 1 tab PO BID PRN PRN Pain 07/02/13 10/21/17 History 750 mg tablet potassium chloride 20 mEq oral 20 meq PO DAILY #10 packets 10/21/17 Unknown Rx packet ergocalciferol (vitamin D2) 1,250 1,250 mcg PO QMONTH 02/09/21 Unknown History mcg (50,000 unit) capsule (Vitamin D2) tamsulosin 0.4 mg capsule 0.4 mg PO BID 02/09/21 Unknown History atorvastatin 40 mg tablet 40 mg PO QHS #30 tabs 02/10/21 Unknown Rx clonidine 0.3 mg/24 hr weekly 1 patch transdermal QWEEK #0 ea 02/10/21 Unknown Rx transdermal patch clopidogrel 75 mg tablet 75 mg PO DAILY #21 tabs 02/10/21 Unknown Rx furosemide 40 mg tablet 40 mg PO QODAY WATER PILL #0 tabs 02/10/21 10/21/17 Rx amlodipine 5 mg tablet 5 mg PO DAILY 03/31/24 Unknown History apixaban 2.5 mg tablet (Eliquis) 2.5 mg PO BID #60 tabs 03/31/24 Unknown Rx aspirin 81 mg tablet,delayed 81 mg PO DAILY 03/31/24 Unknown History release buspirone 10 mg tablet 10 mg PO TID 03/31/24 Unknown History cefdinir 300 mg capsule 300 mg PO Q12H #14 caps 03/31/24 Unknown Rx doxepin 25 mg capsule 25 mg PO QHS 03/31/24 Unknown History lansoprazole 30 mg capsule,delayed 30 mg PO 03/31/24 Unknown History release Allergy/AdvReac Type Severity Reaction Status Date / Time No Known Allergies Allergy Verified 03/31/24 10:17 Surgical History H/O hernia repair Social History household members: none housing: house current occupational status: retired pets and animals: Yes Smoking Status: Never smoker ROS ROS ED Constitutional Constitutional ED: Denies chills, fever(s) or sweats ENT ENT ED: Denies sore throat Cardiovascular Cardiovascular: Denies chest pain, leg edema, palpitations or racing heartbeat Respiratory/Chest Respiratory/Chest: Reports cough; Denies dyspnea or dyspnea on exertion Gastrointestinal Gastrointestinal: Denies abdominal pain, diarrhea, nausea or vomiting Genitourinary Genitourinary ED: Denies dysuria, hematuria or urinary frequency Musculoskeletal Musculoskeletal: Denies back pain, extremity pain or neck pain Integumentary Denies rash or wounds Neurologic Neurologic: Reports paresthesias and weakness; Denies headache(s) EXAM Physical Exam Const Vital Signs: 03/31/24 10:11 03/31/24 10:19 03/31/24 12:20 Temperature 97.9 F Temperature Source Oral Pulse Rate 90 86 Respiratory Rate 25 H 17 Respiratory Effort Normal Non-Labored Respiratory Pattern Normal Blood Pressure 175/116 H 159/132 H Blood Pressure Mean 135 141 Pulse Ox 96 98 Oxygen Delivery Method Room Air 03/31/24 13:45 03/31/24 14:00 03/31/24 15:57 Temperature 98 F Temperature Source Pulse Rate 78 74 83 Respiratory Rate 17 20 H 16 Respiratory Effort Respiratory Pattern Blood Pressure 164/121 H 152/103 H 171/126 H Blood Pressure Mean 136 120 141 Pulse Ox 99 99 Oxygen Delivery Method Positive well nourished and well developed General Appearance ED: well developed and NAD HEENT Reports moist mucous membranes normocephalic and atraumatic Eyes General Eye ED: Yes normal appearance of both eyes Neck full ROM Chest Wall Chest: Negative for tenderness Resp normal respiratory effort and normal air movement Effort and Inspection: symmetric chest movement; Negative for respiratory dis tress Cardio regular rate, regular rhythm and no murmurs Peripheral Pulses: pulses 2+ throughout GI normal to inspection, nondistended, normoactive bowel sounds and non-tender Palpation: Negative for guarding or rebound tenderness present Extremity normal to inspection General Extremety ED: Negative for edema or tenderness General Extremity: Negative for edema Neuro oriented x3 Neuro Narrative: Paresthesias bilateral lower extremity. Sensorium / Orientation: awake and alert Skin no rashes or lesions noted and no wounds MDM MDM MDM Narrative Medical decision making narrative: Interventions / MDM: Differential diagnosis: New onset atrial fibrillation, weakness, UTI, CKD Diagnosis considered but do not suspect: Pneumonia however image studies negative. My EKG interpretation: Rate controlled A-fib 72, no ST changes. PVCs noted. Imaging independently reviewed and interpreted by myself: CT brain: No acute process read by radiology. Chest x-ray questionable 3 cm right lower lobe mass recommend CT per radiology. CT chest noncontrast: Loculated pleural effusion in the lingula. No mass. External documents reviewed: N/A Test considered but not ordered:N/A ED course: Present increasing weakness tingling throughout. Exam paresthesias lower extremities bilaterally. He has symptoms both sides secondary to this less likely stroke concerns. Generalized weakness, will check CT brain chest x- ray labs and urine. EKG ordered. 1255: EKG A-fib rate controlled. No history of this. Labs stable creatinine at 2.18. White count 5.[address] brain negative. Pending urine collection. 1340: Reevaluation and tingling is improved. Still feels heavy in the legs. Two-view chest x-ray at 3 send right lower lobe Mass. He has no known mass history. His creatinine 2.18. GFR 31. Will send for noncontrast CT chest for further evaluation. Urine is in the lab. TSH returned normal at 3.24. CT chest with negative for mass there is loculated pleural effusion small area. He is not hypoxic. No dyspnea. Urine positive for infection. Patient ambulated with no difficulties at his baseline. Started on antibiotics. I discussed with research assistant Dr. lombardi with new onset A-fib rate controlled. CKD history GFR 31. Will start Eliquis 2.5 mg twice daily. He will follow-up with his PCP for his A-fib and referred to cardiology if needed. Discussed with patient and son who understands and agrees with plan. Return precaution discussed with patient and son. All questions were answered. Patient evaluated Re-evaluation: stable Disposition discussed with patient/family/significant other: Patient and son Case discussed with consulting clinician: Cardiology This note was generated with [employer] dictation software. It may contain incorrect words, spelling, and punctuation that were not noted in checking the note before signing. Lab Data Attestation: I reviewed the patient's lab results. Labs: Laboratory Results - last 24 hr 03/31/24 03/31/24 10:15 13:06 WBC 5.4 RBC 3.99 L Hgb 12.7 L Hct 38.5 L MCV 96.5 H MCH 31.8 MCHC 33.0 RDW Std Deviation 50.6 H RDW Coeff of Fitz 14.2 Plt Count 215 MPV 11.1 Immature Gran % (Auto) 0.600 Neut % (Auto) 75.6 H Lymph % (Auto) 13.9 L Beadle % (Auto) 7.1 Eos % (Auto) 1.9 Baso % (Auto) 0.9 Absolute Neuts (auto) 4.1 Absolute Lymphs (auto) 0.75 L Nucleated RBC % 0 Sodium 142 Potassium 4.0 Chloride 113 H Carbon Dioxide 24.0 Anion Gap 5 BUN 32 H Creatinine 2.18 H Estim Creat Clear Calc 24.15 Est GFR (MDRD) Af Amer 37 L Est GFR (MDRD) Non-Af 31 L BUN/Creatinine Ratio 14.7 Glucose 99 Calcium 8.7 TSH 3.240 Urine Color Yellow Urine Clarity Clear Urine pH 5.0 Ur Specific Fertile 1.020 Urine Protein 100 H Urine Glucose (UA) Normal Urine Ketones Negative Urine Occult Blood 10 H Urine Nitrite Negative Urine Bilirubin Negative Urine Urobilinogen Normal Ur Leukocyte Esterase 25 H Urine RBC 0-5 SEEN Urine WBC 10-25 SEEN Ur Squamous Epith Cells 0-5 SEEN Urine Bacteria RARE Urine Mucus 0 SEEN Radiography Diagnostic Testing: Clinical Impression(s) from Imaging Studies Brain CT 03/31/24 10:55 IMPRESSION: Negative head/brain CT without intravenous contrast and unchanged. Electronically Signed: Ochoa Benjamin MD at 12:46 EST , Chest X-Ray 03/31/24 11:55 IMPRESSION: 3 cm right lower lobe mass. Recommend follow-up or CT. Electronically Signed: Rubi Schmid MD at 12:58 EST , Chest CT 03/31/24 13:35 IMPRESSION: 1. No CT evidence of lung mass. 2. Loculated pleural effusion in the right posterior major fissure measuring 4.9 x [address] number of -12.92 Hounsfield units. This was not present previously. 3. Small ill-defined centrilobular groundglass opacities in the right upper lobe may be due to aspiration pneumonia. 4. Mildly prominent hiatal hernia. 5. Minimal old anterior wedge compression fractures of the T6, T7 and T8 vertebral bodies. Electronically Signed: Ochoa Benjamin MD at 14:46 EST , Discharge Plan Triage Chief Complaint: Weakness ED Provider: Roldan Pruitt Dx/Rx/DC Orders Clinical Impression: Acute UTI, Weakness, Atrial fibrillation, new onset, CKD (chronic kidney disease) Instructions: Urinary Tract Infections in Men, AFib Dc Prescriptions: New cefdinir 300 mg capsule 300 mg PO Q12H Qty: 14 0RF Eliquis 2.5 mg tablet 2.5 mg PO BID Qty: 60 0RF No Action hydrocodone-acetaminophen 1 EACH tablet 1 tab PO BID PRN PRN (Reason: Pain) Patient Comments: potassium chloride 20 MEQ packet 20 meq PO DAILY Qty: 10 0RF tamsulosin 0.4 mg Capsule 0.4 mg PO BID ergocalciferol (vitamin D2) [Vitamin D2] 1,250 mcg (50,000 unit) Capsule 1,250 mcg PO QMONTH clopidogrel 75 mg Tablet 75 mg PO DAILY Qty: 21 0RF atorvastatin 40 mg tablet 40 mg PO QHS Qty: 30 0RF Rx Instructions: Decrease to 20 mg nightly if patient gets muscle pain furosemide 40 MG tablet 40 mg PO QODAY Qty: 0 0RF Patient Comments: TAKE 1 TABLET EVERY DAY Rx Instructions: Hold for systolic blood pressure less than 120 mmHg clonidine 0.3 mg/24 hr Patch Weekly 1 patch TRANSDERMAL QWEEK Qty: 0 0RF Rx Instructions: Hold for systolic blood pressure less than 130 mmHg doxepin 25 mg capsule 25 mg PO QHS amlodipine 5 mg tablet 5 mg PO DAILY aspirin 81 mg tablet,delayed release (DR/EC) 81 mg PO DAILY buspirone 10 mg tablet 10 mg PO TID lansoprazole 30 mg capsule,delayed release(DR/EC) 30 mg PO Primary Care Provider: Kieran Gary Chi Referrals: Kieran Gary Chi, MD [Primary Care Provider] - 1 Week Activity Restrictions/Additional Instructions: With your weakness in your legs and tingling today. Workup you have new onset rate controlled A-fib. Stable creatinine at 2.18 with GFR 31. Take Eliquis as prescribed and discussion with cardiology Dr. Lombardi. Other findings notes UTI. Your chest scan notes a loculated small pleural effusion right upper lobe. There was no mass. Your white count 5.4. Hemoglobin 12.7. Thyroid levels normal. Take antibiotic as prescribed and follow-up with Dr. Gary. Print Language: Sammarinese Disposition Disposition: Home, Self Care Discharge Date/Time: 03/31/24 16:06
[2024-03-31 11:16] LABS: Absolute Lymphocyte Count 0.75 X10^3/uL (0.83-4.51); Absolute Neutrophil Count 4.1 X10^3/uL (2.0-7.7); Basophil# 0.05 X10^3/uL; Basophil% 0.9 % (0-1); Eosinophils% 1.9 % (0-5); Hematocrit 38.5 % (40-54); Hemoglobin 12.7 g/dL (13.0-16.5); Lymphocyte # 0.75 X10^3/ul (0.83-4.51); Lymphocyte % 13.9 % (19-41); Mean Corpuscular Hgb 31.8 pg (27.0-32.0); Mean Corpuscular Volume 96.5 fL (80-94); Mean Platelet Vol. 11.1 fl (6.2-12.0); Monocyte# 0.38 X10^3/uL; Monocyte% 7.1 % (0-10); NRBC Flagged by Analyzer 0 % (0-5); Neutrophil # 4.07 X10^3/uL (2.7-7.7); Neutrophil % 75.6 % (47-70); Platelet Count 215 K/mm3 (150-450); RBC Distribution Width CV 14.2 % (11.6-14.6); RBC Distribution Width SD 50.6 fl (35.1-43.9); Red Blood Count 3.99 M/mm3 (4.6-6.2); White Blood Count 5.4 K/mm3 (4.4-11.0)
[2024-03-31 11:53] LABS: Anion Gap 5 (5-15); BUN 32 mg/dL (7-18); BUN/Creat Ratio 14.7 RATIO (10-20); Calcium,Total 8.7 mg/dL (8.5-10.1); Chloride 113 mmol/L (98-107); Creatinine, Serum 2.18 mg/dL (0.70-1.30); EST Glomerular Filtration Rate 31 mL/min (>60); Est Glom Filt Rate - Afr Amer 37 mL/min (>60); Estimated Creatinine Clearance 24.15 ml/min; Glucose 99 mg/dL (74-106); Sodium Level 142 mmol/L (136-145)
--- NOTE | 2024-03-31 11:55 | RAD_ITS ---
HISTORY: cough. TECHNIQUE: XR Chest 2 Views. COMPARISON: 02/09/2021. FINDINGS: CARDIOMEDIASTINAL BORDERS: Cardiac silhouette upper limits of normal in size. Mediastinal contour unremarkable calcification of the aortic knob. LUNGS: Chronic hyperinflation. Linear bandlike opacity along the right minor fissure. 3 cm opacity in the right lower lobe. PLEURA: No pleural effusion or pneumothorax seen. OSSEOUS STRUCTURES: Degenerative change. RAD/Chest PA and Lateral IMPRESSION: 3 cm right lower lobe mass. Recommend follow-up or CT. Electronically Signed: Rubi Schmid MD at 12:58 EST ,
[2024-03-31 12:20] VITALS: BP 159/132; PULSE 86; RESP 17; O2SAT 98
[2024-03-31 13:13] LABS: Mucous, Urine 0 SEEN /hpf (<or=2+)
[2024-03-31 13:19] LABS: Color, Urine Yellow (Yellow); Glucose, Dipstick Normal (Normal); Ketone-Dipstick Negative (Negative); Leukocyte Esterase-Dipstick 25 /ul (Negative); Nitrite-Dipstick Negative (Negative); Occult Blood-Urine 10 /ul (Negative); Protein-Dipstick 100 mg/dl (Negative); Urine Bilirubin Dipstick Negative (Negative); Urine Clarity Clear (Clear); Urine Urobilinogen Normal (Normal)
--- NOTE | 2024-03-31 13:35 | CT_ITS ---
EXAM: CT CHEST WITHOUT INTRAVENOUS CONTRAST CLINICAL INDICATION: Lung mass. TECHNIQUE: Helically acquired images were obtained of the chest without intravenous contrast. This CT exam was performed using one or more of the following dose reduction techniques: automated exposure control, adjustment of the mA and/or kV according to patient size, and/or use of iterative reconstruction technique. RADIATION DOSE: CTDIvol = 9.67 mGy, DLP = 331.63 mGy-cm COMPARISON: CT chest without contrast 07/02/2013. FINDINGS: LUNGS AND PLEURAL SPACES: Loculated pleural effusion in the posterior right major fissure measuring 4.9 x [address] number of -12.92 Hounsfield units. Small ill-defined centrilobular groundglass opacities in the right upper lobe. Calcified granuloma in the peripheral aspect right upper lobe. Minimal linear atelectasis in the right lower lobe. Mild thickening of the minor fissure. No mass. No pneumothorax. HEART: Mild cardiomegaly. Mild 5 mm anterior end posterior pericardial effusion or thickening. This is a new finding. Some calcified plaques in the LAD branch and circumflex branch. MEDIASTINUM: Mildly prominent hiatal hernia. No mediastinal or hilar adenopathy. Esophagus is unremarkable. THYROID: Unremarkable. No thyroid lesions. BONES/JOINTS: Minimal old anterior wedge compression fracture of the T6, T7 and T8 vertebral bodies. No suspicious lytic or blastic abnormality. VASCULATURE: Calcified plaques along the thoracic aorta and abdominal aorta. No aortic aneurysm. GALLBLADDER AND BILE DUCTS: Surgical clips in the gallbladder fossa area from cholecystectomy. No intrahepatic or extrahepatic biliary ductal dilatation. CT/Chest without Contrast IMPRESSION: 1. No CT evidence of lung mass. 2. Loculated pleural effusion in the right posterior major fissure measuring 4.9 x [address] number of -12.92 Hounsfield units. This was not present previously. 3. Small ill-defined centrilobular groundglass opacities in the right upper lobe may be due to aspiration pneumonia. 4. Mildly prominent hiatal hernia. 5. Minimal old anterior wedge compression fractures of the T6, T7 and T8 vertebral bodies. Electronically Signed: Ochoa Benjamin MD at 14:46 EST ,
[2024-03-31 13:45] VITALS: BP 164/121; PULSE 78; RESP 17
[2024-03-31 13:46] LABS: Bacteria RARE /hpf (None Seen); Red Blood Cells-Urine 0-5 SEEN /hpf (0-5); Squamous Epithelial Cells - UA 0-5 SEEN /hpf (0-5); White Blood Cells 10-25 SEEN /hpf (0-5)
[2024-03-31 14:00] VITALS: BP 152/103; PULSE 74; RESP 20; O2SAT 99
[2024-03-31] MEDS: APIXABAN 2.5 MG TABLET (WCH) PO (15:54)
[2024-03-31] MEDS: Cefdinir 300 MG Capsule PO (15:54)
[2024-03-31 15:57] VITALS: BP 171/126; PULSE 83; RESP 16; TEMP 36.6; O2SAT 99
== END 2024-03-31 16:06 | disposition home or self-care (01) ==
PROVIDERS: Emergency Provider Emergency Medicine; PCP Family Medicine Geriatric Medicine; Visit Provider Emergency Medicine
DX: N39.0 Urinary tract infection, site not specified (principal); I48.91 Unspecified atrial fibrillation; R53.1 Weakness; I12.9 Hypertensive chronic kidney disease with stage 1 through stage 4 chronic kidney disease, or unspecified chronic kidney disease; I49.3 Ventricular premature depolarization; N18.9 Chronic kidney disease, unspecified; N40.0 Benign prostatic hyperplasia without lower urinary tract symptoms; Z86.73 Personal history of transient ischemic attack (TIA), and cerebral infarction without residual deficits; Z79.82 Long term (current) use of aspirin; Z79.01 Long term (current) use of anticoagulants; Z79.02 Long term (current) use of antithrombotics/antiplatelets; Z79.899 Other long term (current) drug therapy
CPT/HCPCS: 70450; 71046; 71250; 80048; 81001; 84443; 85025; 87077; 87086; 87088; 87186; 93005; 99285; A4216

== ENCOUNTER → 2024-04-11 | Outpatient (CLI) | payer MEDICARE, SELFPAY ==
[2024-04-11 15:42] LABS: Absolute Lymphocyte Count 0.97 X10^3/uL (0.83-4.51); Absolute Neutrophil Count 4.3 X10^3/uL (2.0-7.7); Basophil# 0.05 X10^3/uL; Basophil% 0.9 % (0-1); Eosinophils% 1.7 % (0-5); Hematocrit 37.2 % (40-54); Hemoglobin 11.8 g/dL (13.0-16.5); Lymphocyte # 0.97 X10^3/ul (0.83-4.51); Lymphocyte % 16.9 % (19-41); Mean Corp Hgb Conc 31.7 g/dL (32-36); Mean Corpuscular Hgb 31.1 pg (27.0-32.0); Mean Corpuscular Volume 98.2 fL (80-94); Mean Platelet Vol. 11.2 fl (6.2-12.0); Monocyte# 0.33 X10^3/uL; Monocyte% 5.7 % (0-10); NRBC Flagged by Analyzer 0 % (0-5); Neutrophil # 4.26 X10^3/uL (2.7-7.7); Neutrophil % 74.3 % (47-70); Platelet Count 239 K/mm3 (150-450); RBC Distribution Width SD 50.4 fl (35.1-43.9); Red Blood Count 3.79 M/mm3 (4.6-6.2); White Blood Count 5.7 K/mm3 (4.4-11.0)
[2024-04-11 16:22] LABS: ALB/GLOB Ratio 0.9 RATIO (0.9-2.4); AST(SGOT) 37 U/L (15-37); Alanine Aminotransfer ALT/SGPT 37 U/L (16-61); Albumin, Serum 3.2 g/dL (3.2-5.0); Alkaline Phosphatase 135 U/L (45-117); Anion Gap 5 (5-15); BUN 33 mg/dL (7-18); BUN/Creat Ratio 13.8 RATIO (10-20); Calcium,Total 8.4 mg/dL (8.5-10.1); Chloride 114 mmol/L (98-107); EST Glomerular Filtration Rate 27 mL/min (>60); Est Glom Filt Rate - Afr Amer 33 mL/min (>60); Globulin 3.4 g/dL (2.2-4.2); Glucose 150 mg/dL (74-106); Potassium 4.6 mmol/L (3.5-5.1); Protein, Total 6.6 g/dL (6.4-8.2); Sodium Level 142 mmol/L (136-145)
[2024-04-11 17:00] LABS: Vitamin D,25 Hydroxy 35.6 ng/mL
== END | disposition home or self-care (01) ==
LOC: POLAB3 14:51
PROVIDERS: PCP Family Medicine Geriatric Medicine; Visit Provider Family Medicine Geriatric Medicine
DX: I10 Essential (primary) hypertension (principal); E55.9 Vitamin D deficiency, unspecified
CPT/HCPCS: 36415; 80053; 82306; 84443; 85025

== ENCOUNTER → 2024-04-15 | Outpatient (CLI) | payer MEDICARE, SELFPAY ==
--- NOTE | 2024-04-15 13:17 | US_ITS ---
EXAM: US RETROPERITONEAL LIMITED, RENAL CLINICAL INDICATION: ACUTE KIDNEY FAILURE TECHNIQUE: Limited grayscale and color Doppler sonographic evaluation of the retroperitoneum was performed. COMPARISON: No relevant prior studies available. FINDINGS: RIGHT KIDNEY: Right kidney measures 8.6 cm in length; left kidney 9.7 cm. No perinephric collection is demonstrated. No renal stones or hydronephrosis. No solid renal masses. LEFT KIDNEY: Bilateral renal cysts, largest measuring 4.1 cm at the inferior left kidney. This contains calcifications and septations. BLADDER: Bladder is unremarkable. OTHER FINDINGS: Prostate measures 6.4 x 7.0 x 6 cm and is heterogeneous/enlarged. US/Kidney and Bladder IMPRESSION: Bilateral renal cysts. Inferior pole cyst of the left kidney measuring up to 4.1 cm is complex. Suggest further investigation with renal MRI. Prostatomegaly is nonspecific. Correlate with PSA levels. Electronically Signed: Solitario Lazaro MD at 16:04 EST ,
== END | disposition home or self-care (01) ==
LOC: US 13:16
PROVIDERS: PCP Family Medicine Geriatric Medicine; Referring Provider Internal Medicine Nephrology; Visit Provider Internal Medicine Nephrology
DX: N17.9 Acute kidney failure, unspecified (principal)
CPT/HCPCS: 76770

== ENCOUNTER → 2024-09-06 | Outpatient (CLI) | payer MEDICARE, SELFPAY ==
[2024-09-06 16:52] LABS: Absolute Lymphocyte Count 0.97 X10^3/uL (0.83-4.51); Absolute Neutrophil Count 5.9 X10^3/uL (2.0-7.7); Basophil# 0.06 X10^3/uL; Basophil% 0.8 % (0-1); Eosinophil# 0.07 X10^3/uL; Eosinophils% 0.9 % (0-5); Hematocrit 36.1 % (40-54); Hemoglobin 12.1 g/dL (13.0-16.5); Lymphocyte # 0.97 X10^3/ul (0.83-4.51); Lymphocyte % 12.6 % (19-41); Mean Corp Hgb Conc 33.5 g/dL (32-36); Mean Corpuscular Hgb 31.8 pg (27.0-32.0); Mean Platelet Vol. 10.7 fl (6.2-12.0); Monocyte# 0.65 X10^3/uL; Monocyte% 8.4 % (0-10); NRBC Flagged by Analyzer 0 % (0-5); Neutrophil # 5.93 X10^3/uL (2.7-7.7); Neutrophil % 76.8 % (47-70); Platelet Count 176 K/mm3 (150-450); RBC Distribution Width CV 15.3 % (11.6-14.6); RBC Distribution Width SD 53.3 fl (35.1-43.9); White Blood Count 7.7 K/mm3 (4.4-11.0)
== END | disposition home or self-care (01) ==
PROVIDERS: PCP Family Medicine Geriatric Medicine; Referring Provider Family Medicine Geriatric Medicine; Visit Provider Family Medicine Geriatric Medicine
DX: R31.9 Hematuria, unspecified (principal)
CPT/HCPCS: 36415; 85025; 87086; 87088

== ENCOUNTER → 2024-10-12 | Outpatient (CLI) | payer MEDICARE, SELFPAY ==
[2024-10-12 12:12] LABS: Hematocrit 34.3 % (40-54); Hemoglobin 11.3 g/dL (13.0-16.5); Immature Granulocytes Count 0.010 X10^3/uL (0.0-0.0); Mean Corp Hgb Conc 32.9 g/dL (32-36); Mean Corpuscular Volume 95.5 fL (80-94); Mean Platelet Vol. 11.5 fl (6.2-12.0); NRBC Flagged by Analyzer 0 % (0-5); Platelet Count 142 K/mm3 (150-450); RBC Distribution Width CV 14.6 % (11.6-14.6); RBC Distribution Width SD 51.6 fl (35.1-43.9); Red Blood Count 3.59 M/mm3 (4.6-6.2); White Blood Count 4.2 K/mm3 (4.4-11.0)
[2024-10-12 14:28] LABS: AST(SGOT) 30 U/L (<=37); Alanine Aminotransfer ALT/SGPT 20 U/L (<=46); Albumin, Serum 3.5 g/dL (3.4-4.8); Alkaline Phosphatase 97 U/L (40-129); Anion Gap 10 (5-15); BUN 25 mg/dL (4-19); BUN/Creat Ratio 11.0 RATIO (10-20); Calcium,Total 8.0 mg/dL (7.6-11.0); Carbon Dioxide 20.4 mmol/L (21.0-32.0); Chloride 109 mmol/L (98-108); Globulin 2.2 g/dL (2.2-4.2); Glucose 102 mg/dL (70-99); Potassium 4.8 mmol/L (3.3-5.1); Vitamin D,25 Hydroxy 28.5 ng/mL (30-100)
== END | disposition home or self-care (01) ==
LOC: POLAB3 11:36
PROVIDERS: PCP Family Medicine Geriatric Medicine; Visit Provider Family Medicine Geriatric Medicine
DX: I10 Essential (primary) hypertension (principal); E55.9 Vitamin D deficiency, unspecified
CPT/HCPCS: 36415; 80053; 82306; 84443; 85025

== ENCOUNTER 2025-02-07 19:05 | Inpatient (IN) | payer MEDICARE, SELFPAY ==
[2025-02-07] VITALS (7 sets, daily range): BP systolic 98–130; BP diastolic 72–87; PULSE 54–62; RESP 14–25; TEMP 36.4–36.6; O2SAT 97–100; BMI 19.8
[2025-02-07 19:46] LABS: Hematocrit 33.3 % (40-54); Hemoglobin 10.5 g/dL (13.0-16.5); Immature Granulocytes Count 0.020 X10^3/uL (0.0-0.0); Mean Corp Hgb Conc 31.5 g/dL (32-36); Mean Corpuscular Volume 98.2 fL (80-94); Mean Platelet Vol. 11.2 fl (6.2-12.0); NRBC Flagged by Analyzer 0 % (0-5); Platelet Count 210 K/mm3 (150-450); RBC Distribution Width CV 15.0 % (11.6-14.6); RBC Distribution Width SD 54.2 fl (35.1-43.9); Red Blood Count 3.39 M/mm3 (4.6-6.2); White Blood Count 7.2 K/mm3 (4.4-11.0)
[2025-02-07 20:05] LABS: Prothrombin Time (Protime)PT. 15.7 SECONDS (11.7-14.9)
[2025-02-07 20:06] LABS: Partial Thromboplast Time 37.3 Seconds (24.1-36.2)
[2025-02-07 20:30] LABS: AST(SGOT) 18 U/L (<=37); Alanine Aminotransfer ALT/SGPT 10 U/L (<=46); Albumin, Serum 3.6 g/dL (3.4-4.8); Alkaline Phosphatase 127 U/L (40-129); Anion Gap 13 (5-15); BUN 39 mg/dL (4-19); BUN/Creat Ratio 12.3 RATIO (10-20); Calcium,Total 8.3 mg/dL (7.6-11.0); Carbon Dioxide 15.8 mmol/L (21.0-32.0); Chloride 111 mmol/L (98-108); Estimated Creatinine Clearance 14.15 ml/min (50-250); Globulin 2.8 g/dL (2.2-4.2); Glucose 123 mg/dL (70-99); Potassium 4.1 mmol/L (3.3-5.1)
--- NOTE | 2025-02-07 20:52 | EX.ED.DYSGE1 ---
HPI History of Present Illness Chief Complaint: Weakness Informant: patient and family Onset/Context/Timing Onset: Days Context: Gradual Onset Timing: Continuous Quality: Weakness Location: Generalized Worsened by: Nothing Relieved by: Sleeping Narrative Narrative: Patient presents with generalized weakness that has been getting progressively worse over the past few days. Patient states is gradually getting worse. Patient states it is better when he is able to sleep. Patient states he feels weak all over. Patient states nothing makes it worse. Patient admits to some subjective chills but denies any fevers. Patient states he has had similar symptoms with urinary tract infection in the past. Patient admits to a mild cough. Patient denies any nausea or vomiting. Patient admits to arthralgias. [facility] Medical History Acute CVA (cerebrovascular accident) Hypertension BPH (benign prostatic hyperplasia) Home Medications ?Medication ?Instructions ?Recorded ?Last Taken ?Type potassium chloride 20 mEq oral 20 meq PO DAILY #10 packets 10/21/17 Unknown Rx packet ergocalciferol (vitamin D2) 1,250 1,250 mcg PO QMONTH 02/09/21 Unknown History mcg (50,000 unit) capsule (Vitamin D2) tamsulosin 0.4 mg capsule 0.4 mg PO BID 02/09/21 Unknown History clonidine 0.3 mg/24 hr weekly 1 patch transdermal QWEEK #0 ea 02/10/21 Unknown Rx transdermal patch amlodipine 5 mg tablet 5 mg PO DAILY 03/31/24 Unknown History apixaban 2.5 mg tablet (Eliquis) 2.5 mg PO BID #60 tabs 03/31/24 Unknown Rx aspirin 81 mg tablet,delayed 81 mg PO DAILY 03/31/24 Unknown History release doxepin 25 mg capsule 25 mg PO QHS 03/31/24 Unknown History lansoprazole 30 mg capsule,delayed 30 mg PO DAILY 03/31/24 Unknown History release metoprolol tartrate 25 mg tablet 25 mg PO BID 02/07/25 Unknown History Allergy/AdvReac Type Severity Reaction Status Date / Time No Known Allergies Allergy Verified 02/07/25 19:07 Surgical History H/O hernia repair Social History household members: none housing: house current occupational status: retired pets and animals: Yes Smoking Status: Never smoker ROS ROS ED Constitutional Constitutional ED: Reports chills; Denies fever(s) Eyes Eyes: Denies blurry vision or change in vision ENT ENT ED: Reports rhinorrhea; Denies sore throat Cardiovascular Cardiovascular: Denies chest pain or palpitations Respiratory/Chest Respiratory/Chest: Reports cough; Denies dyspnea Gastrointestinal Gastrointestinal: Denies nausea or vomiting Genitourinary Genitourinary ED: Denies dysuria or hematuria Musculoskeletal Musculoskeletal: Reports arthralgias and neck pain Integumentary Denies abscess or rash Neurologic Neurologic: Reports weakness; Denies headache(s) Allergic/Immunologic Allergic/Immunologic ED: Denies mouth swelling or urticaria EXAM Physical Exam Const Vital Signs: 02/07/25 19:05 02/07/25 19:45 02/07/25 19:46 Temperature 97.9 F 97.6 F L Temperature Source Oral Oral Pulse Rate 54 L 60 Respiratory Rate 19 H 25 H Respiratory Effort Respiratory Pattern Blood Pressure 114/86 H 120/87 H Blood Pressure Mean 95 98 Pulse Ox 97 97 Oxygen Delivery Method Room Air Room Air Room Air 02/07/25 19:47 02/07/25 20:11 02/07/25 21:00 Temperature 97.8 F 97.8 F Temperature Source Oral Oral Pulse Rate 57 L 58 L Respiratory Rate 22 H 21 H Respiratory Effort Normal Non-Labored Respiratory Pattern Normal Blood Pressure 98/77 108/74 Blood Pressure Mean 84 85 Pulse Ox 100 100 Oxygen Delivery Method Room Air Room Air 02/07/25 22:00 02/07/25 23:00 02/07/25 23:19 Temperature 97.6 F L 97.8 F 97.8 F Temperature Source Oral Oral Pulse Rate 59 L 62 57 L Respiratory Rate 16 14 19 H Respiratory Effort Respiratory Pattern Blood Pressure 111/72 130/82 H 130/82 H Blood Pressure Mean 85 98 98 Pulse Ox 97 99 99 Oxygen Delivery Method Room Air Room Air Positive well nourished and well developed Constitutional Narrative: BMI is 19.8. General Appearance ED: well developed and NAD HEENT Reports moist mucous membranes Neck supple and no JVD Resp normal respiratory effort and clear to auscultation bilaterally Cardio regular rhythm Rate: bradycardia GI non-tender and non-distended Palpation: soft Neuro oriented x3, CN's II-XII intact bilaterally and no sensory deficits noted Sensorium / Orientation: alert Motor Exam: strength 5/5 throughout Psych mental status grossly normal Sepsis Attestation Possible Source of Sepsis: Genitourinary Sepsis Organ Dysfunction Criteria Present: Creatinine > 2.0 mg/dL and Lactic Acid > 2 mmol/L Fluid Resuscitation Fluid Resuscitation ordered: 30 ml/kg fluid bolus ordered Amount of fluid ordered: 2,000 MDM MDM MDM Narrative Medical decision making narrative: Differential diagnosis includes but is not limited to pneumonia, bronchitis, urinary tract infection, viral illness, sepsis, electrolyte abnormality, and dehydration. Chest x-ray will be obtained to assess for pneumonia and bronchitis. CBC will be obtained to assess for leukocytosis and anemia. Comprehensive metabolic profile will be obtained to assess for hepatic function, renal function, and electrolyte abnormality. Serum lactate will be obtained to assess for sepsis. PT with INR and PTT will be obtained to assess for coagulopathy. Urine culture will be obtained to assess for urinary tract infection. COVID-19, influenza, and RSV PCR will be obtained to assess for viral illness. Blood cultures will be obtained to assess for sepsis. History & Record Review Discussion w/independent historian: Patient and Family Lab Data Attestation: I reviewed the patient's lab results. Lab results narrative: CBC was reviewed. There is a mild anemia with a hemoglobin of 10.5 and hematocrit of 33.3. Comprehensive metabolic profile was reviewed. BUN was 39 and creatinine was 3.17. These are increased from previous result. Chloride was slightly elevated at 111. CO2 was slightly low at 15.8. Serum lactate was reviewed and was elevated at 2.8. Urinalysis was reviewed. Leukocyte esterase is 100. There are 25-50 white blood cells and 1+ bacteria. Labs: Laboratory Results - last 24 hr 02/07/25 02/07/25 02/07/25 19:37 19:48 22:00 WBC 7.2 RBC 3.39 L Hgb 10.5 L Hct 33.3 L MCV 98.2 H MCH 31.0 MCHC 31.5 L RDW Std Deviation 54.2 H RDW Coeff of Fitz 15.0 H Plt Count 210 MPV 11.2 Immature Gran % (Auto) 0.300 Neut % (Auto) 80.5 H Lymph % (Auto) 10.8 L [place] % (Auto) 7.3 Eos % (Auto) 0.4 Baso % (Auto) 0.7 Absolute Neuts (auto) 5.8 Absolute Lymphs (auto) 0.78 L Nucleated RBC % 0 PT 15.7 H INR 1.2 APTT 37.3 H Sodium 140 Potassium 4.1 Chloride 111 H Carbon Dioxide 15.8 L Anion Gap 13 BUN 39 H Creatinine 3.17 H Estim Creat Clear Calc 14.15 L Est GFR (MDRD) Non-Af 18 L BUN/Creatinine Ratio 12.3 Glucose 123 H Lactic Acid 2.8 H* Calcium 8.3 Total Bilirubin 0.27 AST 18 ALT 10 Alkaline Phosphatase 127 Total Protein 6.4 Albumin 3.6 Globulin 2.8 Albumin/Globulin Ratio 1.3 Urine Color Yellow Urine Clarity Clear Urine pH 5.0 Ur Specific [place] 1.020 Urine Protein 100 H Urine Glucose (UA) Normal Urine Ketones Negative Urine Occult Blood 10 H Urine Nitrite Negative Urine Bilirubin Negative Urine Urobilinogen Normal Ur Leukocyte Esterase 100 H Urine RBC 0-5 SEEN Urine WBC 25-50 SEEN Ur Squamous Epith Cells 0-5 SEEN Urine Bacteria 1+ Hyaline Casts 0-5 SEEN Coarse Granular Casts 0-5 SEEN Urine Mucus 0 SEEN Radiography Chest X-Ray - ED: 2 View, Read by ED Physician, Read by Radiologist and Chronic Changes Diagnostic Testing: PA and lateral chest x-ray was obtained. There are 2 views. On my independent interpretation, lung herzog show chronic changes. There is cardiomegaly. Bony thorax is normal. There is no acute process noted. Radiologist also interpreted the x-ray and agrees. Management Discussion w/another healthcare provider: Hospitalist Treatment and Re-Evaluation :: Patient was given IV fluids. Patient was advised of his findings. Patient was started on Rocephin. Patient was advised of the need for hospitalization. Patient is agreeable with this. Initially, patient was to go home. However, patient was agreeable to stay in the hospital. Patient was discussed with the hospitalist. She will admit the patient to PCU. Patient and son understood and were agreeable with the plan. All questions were answered. Discharge Plan Dx/Rx/DC Orders Clinical Impression: Sepsis, Urinary tract infection, Acute kidney injury Disposition Disposition: [facility]
[2025-02-07] MEDS: 0.9% Normal Saline (1000mL) 1,000 ML 1000 ML IV ×2 (21:11→23:39)
--- NOTE | 2025-02-07 22:07 | CM.ED ---
Social work Reason for referral: AD request Referral source: [facility] Registration SW entered patient's room, introducing self and role at [facility]. SW expressed hearing patient's request for AD completion and naming a HCPOA. Patient appeared hesitant in patient's confirmation of desire to do so. Patient's son, Norman, was bedside and asked SW to explain the importance of naming a HCPOA. SW did so and SW provided rack card with [facility] number to call to set up an appointment to do so if outpatient. SW stated that if patient were to be admitted, SW would let the acute SW team know of patient's possible desire. Patient had no further questions or concerns at this time. Sandhya Low, VESSEL SCRAPPER HELPER, CASH SPECIALIST
[2025-02-07 22:08] LABS: Mucous, Urine 0 SEEN /hpf (<or=2+)
[2025-02-07 22:42] LABS: Color, Urine Yellow (Yellow); Glucose, Dipstick Normal (Normal); Ketone-Dipstick Negative (Negative); Leukocyte Esterase-Dipstick 100 /ul (Negative); Nitrite-Dipstick Negative (Negative); Occult Blood-Urine 10 /ul (Negative); Protein-Dipstick 100 mg/dl (Negative); Specific Gravity, Urine 1.020 (1.002-1.030); Urine Bilirubin Dipstick Negative (Negative)
[2025-02-07 22:59] LABS: Red Blood Cells-Urine 0-5 SEEN /hpf (0-5); Squamous Epithelial Cells - UA 0-5 SEEN /hpf (0-5)
--- NOTE | 2025-02-07 23:10 | RAD_ITS ---
PROCEDURE: RAD/Chest PA and Lateral
--- NOTE | 2025-02-07 23:21 | PCM.HP.STD ---
HPI - General General Date of Admission: 02/07/25 Date of Service: 02/07/25 Chief Complaint: Fatigue/Generalized weakness HPI Narrative LUCIEN YOUNGER, is a 89 M who presented to the emergency department at [facility] on 02/07/2025 with a chief complaint of generalized weakness. Patient states has been ongoing for about a week and slowly worsening. He currently lives alone and is . He does have 2 sons. Family is not present at the time of admission. Patient is somewhat of a poor historian. He states he said general malaise but no fever or chills. He denies any significant cough or sputum production. He does report of decreased urine output and decreased appetite. He does report he has had some weight loss over the last year. Over the last week his weakness has slowly gotten worse. He is ambulating more with his cane but does not ever use a walker. He states typically he does not use an assistive device on a regular basis. He states he is urinating about 4-5 times a day however the volume has gone down significantly. He denies any significant dysuria. He does have a history of prostate hypertrophy and is on Flomax at baseline. He is on Eliquis as well but states that this is only due to history of stroke. He denies history of DVT or atrial fibrillation. Vital signs on presentation showed temperature of 97.9, heart rate 54, respiratory 19, blood pressure was initially 114/86 but had a kandice of 98/77 in the emergency department, pulse ox was 97% on room air. CBC on presentation showed a normal white count but he had a significant left shift with an 80.5% neutrophilia. He has a chronic anemia and hemoglobin is 10.5 and relatively stable. This is macrocytic in nature. Platelet count was normal. Coags are slightly elevated related to his Eliquis use. Chemistry panel is markedly abnormal with a chloride of 111, serum bicarb of 15.8 with a baseline serum bicarb of 23-28 (old analyzers). A BUN of 39 which is significantly higher than his baseline and a serum creatinine of 3.17 (baseline 2.2-2.4. Lactic acid was 2.8 on presentation. Bilirubin was normal. LFTs were normal. His urine is consistent with dehydration having a specific gravity of 1.02 and infection with leuk esterase, white cells, and bacteria. Chest x-ray was unremarkable for acute findings. Patient does meet sepsis criteria with an elevated lactic acid, serum bicarb less than 20, and STEVEN on CKD with serum creatinine being at 1 point above baseline at 3.17. Patient had some relative hypotension and was treated with IV fluids this evening did not appear euvolemic on presentation. He was given 2 L bolus and monitor closely per sepsis protocol. I did ask that an ABG be drawn given his significant acidosis on presentation and this was pending at the time of admission. [facility] Medical History (Updated 02/08/25 @ 00:[address] Romi Lora, ) Pharyngeal dysphagia Thoracic compression fracture Complex renal cyst Vitamin D deficiency GERD (gastroesophageal reflux disease) Hiatal hernia Paroxysmal atrial fibrillation Macrocytic anemia Chronic kidney disease (CKD), stage 4 Acute CVA (cerebrovascular accident) Hypertension BPH (benign prostatic hyperplasia) Home Medications ?Medication ?Instructions ?Recorded ?Last Taken ?Type potassium chloride 20 mEq oral 20 meq PO DAILY #10 packets 10/21/17 Unknown Rx packet ergocalciferol (vitamin D2) 1,250 1,250 mcg PO QMONTH 02/09/21 Unknown History mcg (50,000 unit) capsule (Vitamin D2) tamsulosin 0.4 mg capsule 0.4 mg PO BID 02/09/21 Unknown History clonidine 0.3 mg/24 hr weekly 1 patch transdermal QWEEK #0 ea 02/10/21 Unknown Rx transdermal patch amlodipine 5 mg tablet 5 mg PO DAILY 03/31/24 Unknown History apixaban 2.5 mg tablet (Eliquis) 2.5 mg PO BID #60 tabs 03/31/24 Unknown Rx aspirin 81 mg tablet,delayed 81 mg PO DAILY 03/31/24 Unknown History release doxepin 25 mg capsule 25 mg PO QHS 03/31/24 Unknown History lansoprazole 30 mg capsule,delayed 30 mg PO DAILY 03/31/24 Unknown History release metoprolol tartrate 25 mg tablet 25 mg PO BID 02/07/25 Unknown History Allergy/AdvReac Type Severity Reaction Status Date / Time No Known Allergies Allergy Verified 02/08/25 00:40 other (Patient unsure) Surgical History (Updated 02/08/25 @ 00:[address] Romi Lora DO) History of Winter fundoplication History of esophagogastroduodenoscopy (EGD) Hx laparoscopic cholecystectomy H/O hernia repair Social History (Updated 02/08/25 @ 00:[address] Romi Lora, DO) household members: none housing: house current occupational status: retired pets and animals: Yes other: Patient with 2 sons Smoking Status: Never smoker alcohol intake: never substance use type: does not use additional social history: Lives alone, has cane but does not use regularly for ambulation ROS Constitutional Constitutional: Reports anorexia, chills, fatigue, malaise and weakness; Denies change in weight, fever(s), night sweats or other Eyes Eyes: Denies blurry vision, change in eye color, change in vision, discharge from eye(s), double vision, erythema, eye pain, loss of vision or other ENT HEENT: Reports abnormal hearing and hearing loss; Denies dysphagia, ear pain, epistaxis, headache(s), nasal congestion, nasal discharge, post nasal drip, sinus pressure, sore throat or other Cardiovascular Cardiovascular: Reports edema; Denies chest pain, claudication, dyspnea on exertion, lightheadedness, orthopnea, palpitations, paroxysmal nocturnal dyspnea, rapid heart rate, syncope or other Respiratory/Chest Respiratory/Chest: Denies cough, dyspnea, excessive phlegm production, hemoptysis, productive cough, shortness of breath at rest, shortness of breath with exertion, wheezing or other Gastrointestinal Gastrointestinal: Reports other Details: Decreased appetite ; Denies abdominal pain, coffee ground emesis, constipation, diarrhea, dyspepsia, hematemesis, hematochezia, loose stools, melena, nausea or vomiting Genitourinary Genitourinary: Reports other Details: Decreased urine output and decreased urine volume ; Denies burning urination, difficulty urinating, dysuria, hematuria, nocturia, urinary frequency, urinary hesitancy, urinary incontinence or urinary urgency Musculoskeletal Musculoskeletal: Denies arthralgias, back pain, joint pain, joint stiffness, joint swelling, myalgias, neck pain or other Neurologic Neurologic: Denies abnormal gait, abnormal speech, confusion, disequilibrium, dizziness, focal weakness, headache(s), numbness, paresthesias, seizure-like activity, seizures, syncope, tingling, tremor(s) or other Psychiatric Psychiatric: Reports anxiety and depression; Denies homicidal ideation, suicidal ideation or other Endocrine Endocrinology: Denies change in body appearance, cold intolerance, excessive sweating, heat intolerance, polydipsia, polyuria or other Hematologic/Lymphatic Hematologic/Lymphatic: Reports easy bleeding; Denies anemia, easy bruising, lymphadenopathy or other Allergic/Immunologic Allergic/Immunologic: Denies rhinitis, hives, eczemia, asthma or other Vital Signs Vital Signs Vital Signs: 02/07/25 19:05 02/07/25 19:45 02/07/25 19:46 Temperature 97.9 F 97.6 F L Temperature Source Oral Oral Pulse Rate 54 L 60 Respiratory Rate 19 H 25 H Respiratory Effort Respiratory Pattern Blood Pressure 114/86 H 120/87 H Blood Pressure Mean 95 98 Pulse Ox 97 97 Oxygen Delivery Method Room Air Room Air Room Air 02/07/25 19:47 02/07/25 20:11 02/07/25 21:00 Temperature 97.8 F 97.8 F Temperature Source Oral Oral Pulse Rate 57 L 58 L Respiratory Rate 22 H 21 H Respiratory Effort Normal Non-Labored Respiratory Pattern Normal Blood Pressure 98/77 108/74 Blood Pressure Mean 84 85 Pulse Ox 100 100 Oxygen Delivery Method Room Air Room Air 02/07/25 22:00 02/07/25 23:00 02/07/25 23:19 Temperature 97.6 F L 97.8 F 97.8 F Temperature Source Oral Oral Pulse Rate 59 L 62 57 L Respiratory Rate 16 14 19 H Respiratory Effort Respiratory Pattern Blood Pressure 111/72 130/82 H 130/82 H Blood Pressure Mean 85 98 98 Pulse Ox 97 99 99 Oxygen Delivery Method Room Air Room Air Weight Weight: 60.917 kg Body Mass Index (BMI) 19.8 Physical Exam Const alert and oriented x3; Negative for average body habitus, healthy appearing or well nourished Constitutional Narrative: Thin, frail and ill-appearing but not toxic elderly, white male, sitting up in bed, does not appear uncomfortable but does appear as if he is not feeling well General Appearance: cooperative HEENT normocephalic and head/scalp atraumatic; Negative for hearing grossly normal bilaterally HEENT Narrative: Mild to moderate hearing loss, mucous membranes are slightly dry, Mallampati is 2, edentulous, no thrush Eyes EOMs intact bilaterally and conjunctivae normal Eyes Narrative: No scleral icterus Neck no lymphadenopathy and supple Neck Narrative: Trachea midline Resp normal respiratory effort, no retractions, no use of accessory muscles and clear to auscultation bilaterally Auscultation: Negative for crackles, rhonchi or wheezes Cardio regular rate, regular rhythm, S1 normal heart sound, S2 normal heart sound, no murmurs, no rub, no gallops and no clicks Cardio Narrative: Intermittent ectopy GI normal to inspection, nondistended, normoactive bowel sounds, soft to palpation and non-tender GI Narrative: Scaphoid abdomen Extremity Extremity Narrative: Bilateral lower extremity doughy pitting edema without knee pain, Homans' sign is negative bilaterally, no cyanosis or clubbing Skin no jaundice, no petechiae and no mottling Skin Narrative: No significant wounds, skin is pale Neuro CN's II-XII intact bilaterally, moves all extremities and no focal motor deficits Neuro Narrative: Significant generalized weakness, proximal greater than distal Speech: speech normal Psych Psych Narrative: Affect is slightly flat but appropriate for situation, patient does make good eye contact and interacts appropriately Results Lab / Micro Data 02/07/25 19:37 02/07/25 19:37 Labs: Laboratory Results - last 24 hr 02/07/25 19:37: WBC 7.2, RBC 3.39 L, Hgb 10.5 L, Hct 33.3 L, MCV 98.2 H, MCH 31.0, MCHC 31.5 L, RDW Std Deviation 54.2 H, RDW Coeff of Fitz 15.0 H, Plt Count 210, MPV 11.2, Immature Gran % (Auto) 0.300, Neut % (Auto) 80.5 H, Lymph % (Auto) 10.8 L, [place] % (Auto) 7.3, Eos % (Auto) 0.4, Baso % (Auto) 0.7, Absolute Neuts (auto) 5.8, Absolute Lymphs (auto) 0.78 L, Nucleated RBC % 0, PT 15.7 H, INR 1.2, APTT 37.3 H, Sodium 140, Potassium 4.1, Chloride 111 H, Carbon Dioxide 15.8 L, Anion Gap 13, BUN 39 H, Creatinine 3.17 H, Estim Creat Clear Calc 14.15 L, Est GFR (MDRD) Non-Af 18 L, BUN/Creatinine Ratio 12.3, Glucose 123 H, Calcium 8.3, Total Bilirubin 0.27, AST 18, ALT 10, Alkaline Phosphatase 127, Total Protein 6.4, Albumin 3.6, Globulin 2.8, Albumin/Globulin Ratio 1.3 02/07/25 19:48: Lactic Acid 2.8 H* 02/07/25 22:00: Urine Color Yellow, Urine Clarity Clear, Urine pH 5.0, Ur Specific [place] 1.020, Urine Protein 100 H, Urine Glucose (UA) Normal, Urine Ketones Negative, Urine Occult Blood 10 H, Urine Nitrite Negative, Urine Bilirubin Negative, Urine Urobilinogen Normal, Ur Leukocyte Esterase 100 H, Urine RBC 0-5 SEEN, Urine WBC 25-50 SEEN, Ur Squamous Epith Cells 0-5 SEEN, Urine Bacteria 1+, Hyaline Casts 0-5 SEEN, Coarse Granular Casts 0-5 SEEN, Urine Mucus 0 SEEN Micro: Microbiology 02/07/25 21:01 Mucosa - Nose SARS-CoV-2, Influenza & RSV (PCR) - Final Assessment & Plan Assessment/Plan (1) Sepsis: (2) Acute kidney injury: (3) Metabolic acidosis: (4) Lactic acidosis: (5) Abnormal urinalysis: (6) Generalized weakness: (7) Edema: PLAN: Plan Sepsis 2/ to suspected UTI -pt with STEVEN on CKD stage 4 (baseline sCr 2.2-2.4) and 3.17 on admission, lactic acidosis, metabolic acidosis (HCO3 15.8), BP soft on presentation but improving with IVF -hold home antihypertensives for now -UA is strongly suggestive of UTI -cx pending (blood or urine) -Continue CTX -pt to receive 30 cc/kg body weight--> 2 L -continue to monitor clinically Lactic acidosis -cycle per sepsis protocol -should improve with rx of infection and IVF Non-Anion Gap Metabolic Acidosis -check ABG and address accordingly -suspect multifactorial (STEVEN/Sepsis) -repeat lab in am STEVEN on CKD stage 4 -baseline sCr is between 2.2-2.4 -3.17 on presentation -hold antihypertensives -IVF -no further w/u for now but if not improved consider in am Generalized Weakness -PT/OT consultation -CM/SW consultation to assist with discharge planning - Patient currently lives alone and only intermittently uses a cane for ambulation Complex renal cyst L -noted on US from 04/30 -needs outpt imaging depending on pt GOC Chronic bilateral lower extremity edema - Patient with previous Dopplers unremarkable - Highly suspect this may be related to nutritional status - Patient states he has had significant weight loss - Dietitian is consulted - Supplements added Essential HTN -hold home meds for now and reintroduce and BP permits Chronic anemia - Mild - CBC is relatively stable however I do expect drop in hemoglobin to IV fluids with sepsis protocol - Repeat CBC in a.m. 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 - Continue vitamin D supplementation Vitamin D deficiency - Continue home vitamin D supplementation Stroke -cont asa -Could consider discontinuation of aspirin given history of atrial fibrillation and new recommendations -cont risk factor modification -Continue Eliquis Depression/anxiety - Continue doxepin DVT prophylaxis - Continue home apixaban CODE STATUS - Per extensive discussion at the time of admission explaining risks and benefits patient would like to remain full code at this time as he states he is not yet ready to Sepsis Attestation Sepsis Alert: Yes Sepsis Attestation: Agree w/Sepsis Date exam was performed: 02/07/25 Time exam was performed: 23:23 Possible Source of Sepsis: Genitourinary Sepsis Organ Dysfunction Criteria Present: Creatinine > 2.0 mg/dL (STEVEN on CKD with creat on admission 3.17 and sCr 2.2-2.4), Lactic Acid > 2 mmol/L and Serum CO2 < 20 mmol/L (on BMP) Fluid Resuscitation Fluid Resuscitation ordered: 30 ml/kg fluid bolus ordered Amount of fluid ordered: 2,000 Charges/Coding Visit Charges Inpatient E&M: 30808 Init Hosp L3
[2025-02-07 23:54] LABS: Reflex Lactate? Y
[2025-02-08] VITALS (9 sets, daily range): BP systolic 110–139; BP diastolic 71–92; PULSE 57–71; RESP 16–17; TEMP 36.3–36.8; O2SAT 94–100; BMI 19.5
--- NOTE | 2025-02-08 00:40 | PCM.HOSP.N ---
Hospitalist Note ABG was obtained and pH was found to be 7.32 with a pCO2 of 29.6 and a serum bicarb of 15.3. Patient is compensating some but does not appear to be stressed with effort at this time with no pending signs of potential decompensation. Continue to monitor clinically. Repeat BMP in a.m. as I suspect acidosis is multifactorial. Anion gap was not elevated but trended up from previous baseline. No need for bicarb at this time however if acid-base disorder does not improve may need temporary bicarb drip. Sepsis Attestation Sepsis Note Date exam was performed: 02/08/25 Time exam was performed: 01:24 Sepsis Attestation: Sepsis re-evaluation was performed (Patient was never hypotensive however blood pressure was low normal for him and was fluid responsive with clearance of lactate)
[2025-02-08] MEDS: Lactated Ringers 1,000 ML 75 ML IV (01:14)
[2025-02-08 01:18] LABS: Base Excess -11 mmol/L (-2 to +2); FI02 21.0; PO2 84 mmHG (75-100); SITE R Radial; SO2 96 % (94-98)
--- NOTE | 2025-02-08 02:32 | EKG12_ITS ---
Test Reason : ARRHYTHMIA
[2025-02-08 05:07] LABS: Hematocrit 26.7 % (40-54); Hemoglobin 8.4 g/dL (13.0-16.5); Immature Granulocytes Count 0.030 X10^3/uL (0.0-0.0); Mean Corp Hgb Conc 31.5 g/dL (32-36); Mean Corpuscular Volume 97.8 fL (80-94); Mean Platelet Vol. 11.5 fl (6.2-12.0); NRBC Flagged by Analyzer 0 % (0-5); POSITIVE DIFFERENTIAL YES; Platelet Count 166 K/mm3 (150-450); RBC Distribution Width CV 14.8 % (11.6-14.6); RBC Distribution Width SD 53.2 fl (35.1-43.9); Red Blood Count 2.73 M/mm3 (4.6-6.2); White Blood Count 6.1 K/mm3 (4.4-11.0)
[2025-02-08 05:41] LABS: AST(SGOT) 17 U/L (<=37); Alanine Aminotransfer ALT/SGPT 8 U/L (<=46); Albumin, Serum 2.8 g/dL (3.4-4.8); Alkaline Phosphatase 98 U/L (40-129); Anion Gap 12 (5-15); BUN 36 mg/dL (4-19); BUN/Creat Ratio 12.3 RATIO (10-20); Calcium,Total 7.3 mg/dL (7.6-11.0); Carbon Dioxide 15.0 mmol/L (21.0-32.0); Chloride 114 mmol/L (98-108); Estimated Creatinine Clearance 15.55 ml/min (50-250); Globulin 2.0 g/dL (2.2-4.2); Glucose 85 mg/dL (70-99); Magnesium 1.8 mg/dL (1.5-2.2); Potassium 3.8 mmol/L (3.3-5.1)
--- NOTE | 2025-02-08 08:08 | PN.HOSP_ITS ---
Reason for Visit
--- NOTE | 2025-02-08 08:08 | PCM.PN.HOSP ---
Reason for Visit Chief Complaint: Fatigue/Generalized weakness Subjective Subjective Feeling better. Objective Data Objective Data Vital Signs: Vital Signs Temp Pulse Resp BP Pulse Ox O2 Del Method 36.6 C 71 16 127/82 H 100 Room Air 02/08/25 04:05 02/08/25 04:05 02/08/25 04:05 02/08/25 04:05 02/08/25 04:05 02/08/25 04:05 Oxygen Delivery Method Room Air Weight: 61.7 kg Body Mass Index (BMI) 19.5 Intake & Output: Intake and Output for Last 24 Hours 02/06/25 02/07/25 02/08/25 23:59 23:59 23:59 Intake Total 2049 / 2049 Output Total 450 / 450 Balance 1600 / 1600 Lab / Micro Data 02/08/25 04:01 02/08/25 04:01 Labs: Laboratory Results - last 24 hr 02/07/25 19:37: WBC 7.2, RBC 3.39 L, Hgb 10.5 L, Hct 33.3 L, MCV 98.2 H, MCH 31.0, MCHC 31.5 L, RDW Std Deviation 54.2 H, RDW Coeff of Fitz 15.0 H, Plt Count 210, MPV 11.2, Immature Gran % (Auto) 0.300, Neut % (Auto) 80.5 H, Lymph % (Auto) 10.8 L, [place] % (Auto) 7.3, Eos % (Auto) 0.4, Baso % (Auto) 0.7, Absolute Neuts (auto) 5.8, Absolute Lymphs (auto) 0.78 L, Nucleated RBC % 0, PT 15.7 H, INR 1.2, APTT 37.3 H, Sodium 140, Potassium 4.1, Chloride 111 H, Carbon Dioxide 15.8 L, Anion Gap 13, BUN 39 H, Creatinine 3.17 H, Estim Creat Clear Calc 14.15 L, Est GFR (MDRD) Non-Af 18 L, BUN/Creatinine Ratio 12.3, Glucose 123 H, Calcium 8.3, Total Bilirubin 0.27, AST 18, ALT 10, Alkaline Phosphatase 127, Total Protein 6.4, Albumin 3.6, Globulin 2.8, Albumin/Globulin Ratio 1.3 02/07/25 19:48: Lactic Acid 2.8 H* 02/07/25 22:00: Urine Color Yellow, Urine Clarity Clear, Urine pH 5.0, Ur Specific [place] 1.020, Urine Protein 100 H, Urine Glucose (UA) Normal, Urine Ketones Negative, Urine Occult Blood 10 H, Urine Nitrite Negative, Urine Bilirubin Negative, Urine Urobilinogen Normal, Ur Leukocyte Esterase 100 H, Urine RBC 0-5 SEEN, Urine WBC 25-50 SEEN, Ur Squamous Epith Cells 0-5 SEEN, Urine Bacteria 1+, Hyaline Casts 0-5 SEEN, Coarse Granular Casts 0-5 SEEN, Urine Mucus 0 SEEN 02/07/25 23:45: Lactic Acid < 1.0 02/08/25 04:01: WBC 6.1, RBC 2.73 L, Hgb 8.4 L, Hct 26.7 L, MCV 97.8 H, MCH 30.8, MCHC 31.5 L, RDW Std Deviation 53.2 H, RDW Coeff of Fitz 14.8 H, Plt Count 166, MPV 11.5, Immature Gran % (Auto) 0.500, Neut % (Auto) 81.7 H, Lymph % (Auto) 9.1 L, [place] % (Auto) 7.5, Eos % (Auto) 0.7, Baso % (Auto) 0.5, Absolute Neuts (auto) 5.0, Absolute Lymphs (auto) 0.56 L, Nucleated RBC % 0, Sodium 141, Potassium 3.8, Chloride 114 H, Carbon Dioxide 15.0 L, Anion Gap 12, BUN 36 H, Creatinine 2.92 H, Estim Creat Clear Calc 15.55 L, Est GFR (MDRD) Non-Af 20 L, BUN/Creatinine Ratio 12.3, Glucose 85, Calcium 7.3 L, Phosphorus 3.8, Magnesium 1.8, Total Bilirubin 0.18, AST 17, ALT 8, Alkaline Phosphatase 98, Total Protein 4.8 L, Albumin 2.8 L, Globulin 2.0 L, Albumin/Globulin Ratio 1.4, TSH 4.380 H Micro: Microbiology 02/07/25 21:01 Mucosa - Nose SARS-CoV-2, Influenza & RSV (PCR) - Final ABG Data ABG results: ABG 02/08/25 01:14 Specimen Type ART Sample Site R Radial pH 7.32 L Bicarbonate Actual 15.3 L Total CO2 16 Base Excess -11 L O2 Saturation 96 O2 % 21.0 ABG pCO2 29.6 L ABG pO2 84 Mendez Test N/A O2 Delivery Device Room Air Vent Mode Not entered Radiography Diagnostic Testing: Radiology Impression Chest X-Ray 02/07/25 23:10 IMPRESSION: No acute cardiopulmonary abnormalities. Reading Location: [facility] Physical Exam Const alert and no apparent distress Constitutional Narrative: sitting up at side of the bed. HEENT head/scalp atraumatic and moist oral mucous membranes Resp normal respiratory effort and no retractions Resp Narrative: on room air. Cardio regular rate, regular rhythm, S1 normal heart sound and S2 normal heart sound GI normal to inspection, nondistended, normoactive bowel sounds, soft to palpation, non-tender, non-distended and hepatosplenomegaly Extremity normal to inspection, full ROM and no clubbing, cyanosis or edema Neuro Sensorium / Orientation: awake and alert Assessment & Plan Assessment/Plan (1) Sepsis: (2) Acute kidney injury: (3) Metabolic acidosis: (4) Lactic acidosis: (5) Abnormal urinalysis: (6) Generalized weakness: (7) Edema: PLAN: Plan Sepsis 2/2 POA. With STEVEN on CKD stage 4 (baseline sCr 2.2-2.4) and 3.17 on admission, lactic acidosis, metabolic acidosis (HCO3 15.8), UA equivocol for UTI, Abnormal CXR, but may scarring--cannot rule out pneumonia at this time. abx with CTX, add azithromycin. follow up cultures. Check antigens for strep and legionella, sputum culture. Lactic acidosis resolved. Likely 2/2 above. No additional work up at this time. Non-Anion Gap Metabolic Acidosis ABG consistent w compensated metabolic acidosis. Complicated by STEVEN/CKD. Bicab lower today. will give amp of bicarb and monitor. STEVEN on CKD stage 4 3.17 on presentation. Baseline around 2.24. Improved today at 2.92. monitor. renal US on 04/15 showed bilateral renal cysts and complex cyst on left kidney. recheck US Debility: 2/2 to above in patient with advanced age and multiple medical comorbidities PT/OT eval and treat Cannot rule out need for SNF when medically ready for discharge. Chronic bilateral lower extremity edema Patient with previous Dopplers unremarkable check echo. Chronic medical conditions Essential HTN-hold home meds for now and reintroduce and BP permits Chronic anemia- Mild- CBC is relatively stable however I do expect drop in hemoglobin to IV fluids with sepsis protocol- Repeat CBC in a.m. pafib- Continue apixaban- Hold beta-zuleyka for now as blood pressure was on the low side on presentation BPH with obstruction with prostatomegaly: tamsulosin GERD/Hiatal Hernia-continue lansoprazole- History of Winter fundoplication Compression Fractures of the Thoracic Spine-chronic- Continue vitamin D supplementation Vitamin D deficiency- Continue home vitamin D supplementation Stroke-cont asa-Could consider discontinuation of aspirin given history of atrial fibrillation and new recommendations-cont risk factor modification-Continue Eliquis Depression/anxiety- Continue doxepin DVT prophylaxis - Continue home apixaban CODE STATUS: full code. Charges/Coding Visit Charges Inpatient E&M: 14545 Subs Hosp L2
--- NOTE | 2025-02-08 08:23 | ECHOL_ITS ---
Reason For Study ECHO/Echo, Limited Study
--- NOTE | 2025-02-08 08:23 | US_ITS ---
PROCEDURE: US/Kidney and Bladder
[2025-02-08] MEDS: Azithromycin 500 MG in 0.9% Normal Saline (250mL Bag) 250 ML 250 MG IV (09:58)
[2025-02-08] MEDS: APIXABAN 2.5 MG TABLET (WCH) PO ×2 (10:00→21:11)
[2025-02-08] MEDS: Aspirin E.C. 81 MG Tablet PO (10:01)
--- NOTE | 2025-02-08 10:18 | CASEMGMT ---
Social Work SW spoke with the patient. Patient reported he lives alone and he still drives. He reported he goes to the grocery store almost every week. He reported he eats at least 2 times a day and sometimes 3. He reported his 3 sons help with mowing the yard and outside work. He reported he has an acre of land. He reported he pays his own bills and nobody borrows money from him. He reported he is lonely at times and his 5 years ago. He reported he goes to congregational mostly every week and he usually go out to lunch after congregational with his congregational friends. He reported he has friends. He reported he visits with his family in [place]. He reported he talks to his friends and family on the phone. ANKUR Lynne
[2025-02-08] MEDS: Ensure Plus High Protein 120 ML LIQUID PO ×2 (10:44→16:00)
--- NOTE | 2025-02-08 10:50 | CASEMGMT ---
RAEGAN APODACA Face to Face with patient for initial transition planning/care coordination assessment. RN CM introduced self and role at [facility]. Patient lying in bed, alert and oriented. Patient willing to participate in assessment and is able to answer all questions appropriately. Care providers, pharmacy, and demographics verified. Strata: 2 PCP: Abdirahman Specialists: none Preferred Pharmacy: [facility] Insurance: [facility] Prescription Benefit: yes Living Will/HPOA: none LNOK: sons Living Arrangements: Patient lives alone in a 2 story home with bed and bath on first floor, 3 steps and railing to enter the home. Patient was independent at home. Transportation: self, son DME/HHC: Patient has raised toilet, cane, walker, and grab bars at home. Patient wishes to discharge home. Patient states he is not home bound for HHC as he goes to [employer] and [employer] for dinner. Will monitor for outpatient therapy. Patient states he has no further needs or concerns at this time. CM to follow for discharge planning needs that may arise. Disposition Plan: Patient to discharge home with family support and follow-up plans in place. Will monitor progress with therapy. Sharon HADDAD, RN, CM
[2025-02-08] MEDS: 0.9% Saline Lock 10 ML Syringe IV ×3 (11:57→21:12)
[2025-02-08] MEDS: Sodium Bicarbonate 8.4% 50 ML Syringe 50 MEQ IV (11:57)
[2025-02-08] MEDS: MELATONIN 10 MG TABLET PO (21:11)
[2025-02-09] VITALS (7 sets, daily range): BP systolic 124–148; BP diastolic 78–99; PULSE 54–75; RESP 16–17; TEMP 36.6–36.7; O2SAT 95–100; BMI 19.3
[2025-02-09 07:11] LABS: Hematocrit 26.4 % (40-54); Hemoglobin 8.3 g/dL (13.0-16.5); Immature Granulocytes Count 0.020 X10^3/uL (0.0-0.0); Mean Corp Hgb Conc 31.4 g/dL (32-36); Mean Corpuscular Volume 97.4 fL (80-94); Mean Platelet Vol. 12.0 fl (6.2-12.0); NRBC Flagged by Analyzer 0 % (0-5); Platelet Count 161 K/mm3 (150-450); RBC Distribution Width CV 14.9 % (11.6-14.6); RBC Distribution Width SD 52.9 fl (35.1-43.9); Red Blood Count 2.71 M/mm3 (4.6-6.2); White Blood Count 4.4 K/mm3 (4.4-11.0)
--- NOTE | 2025-02-09 07:26 | PN.HOSP_ITS ---
Reason for Visit
--- NOTE | 2025-02-09 07:26 | PCM.PN.HOSP ---
Reason for Visit Chief Complaint: Fatigue/Generalized weakness Subjective Subjective Feeling weak. Objective Data Objective Data Vital Signs: Vital Signs Temp Pulse Resp BP Pulse Ox O2 Del Method 36.6 C 58 L 16 125/88 H 96 Room Air 02/09/25 03:15 02/09/25 03:15 02/09/25 03:15 02/09/25 03:15 02/09/25 03:15 02/09/25 03:15 Oxygen Delivery Method Room Air Weight: 61 kg Body Mass Index (BMI) 19.3 Intake & Output: Intake and Output for Last 24 Hours 02/07/25 02/08/25 02/09/25 23:59 23:59 23:59 Intake Total 4570.00 / 4570.00 Output Total 450 / 900 850 / 850 Balance 4120.00 / 3670.00 -850 / -850 Lab / Micro Data 02/09/25 06:09 02/09/25 06:09 Labs: Laboratory Results - last 24 hr 02/09/25 06:09: WBC 4.4, RBC 2.71 L, Hgb 8.3 L, Hct 26.4 L, MCV 97.4 H, MCH 30.6, MCHC 31.4 L, RDW Std Deviation 52.9 H, RDW Coeff of Fitz 14.9 H, Plt Count 161, MPV 12.0, Immature Gran % (Auto) 0.500, Neut % (Auto) 68.3, Lymph % (Auto) 17.7 L, Atkinson % (Auto) 10.5 H, Eos % (Auto) 2.3, Baso % (Auto) 0.7, Absolute Neuts (auto) 3.0, Absolute Lymphs (auto) 0.78 L, Nucleated RBC % 0 Micro: Microbiology 02/07/25 21:01 Mucosa - Nose SARS-CoV-2, Influenza & RSV (PCR) - Final Radiography Diagnostic Testing: Radiology Impression Echocardiogram 02/08/25 08:23 Interpretation Summary Moderate concentric left ventricular hypertrophy. The left ventricular ejection fraction is 55 %. The global longitudinal strain = -13.0% (abnormal). At least stage I diastolic dysfunction. There is severe biatrial dilatation. Mild (1+) mitral valve insufficiency. Mild-Moderate (1-2+) tricuspid valve insufficiency. Right ventricular systolic pressure estimated to be 51 mmHg. Moderately calcified aortic valve. Aortic valve sclerosis without stenosis. Mild aortic valve regurgitation. Mildly dilated aortic root. Small (<1.0 cm) pericardial effusion. Ordering Physician: Michael Azevedo Referring Physician: Kieran Gary Chi Performed By: Herman William, RDCS Renal Ultrasound 02/08/25 08:23 IMPRESSION: No hydronephrosis. Nonobstructive stones within the right kidney. Cysts within bilateral kidneys. Prostatomegaly. Free fluid within the Morison's pouch an incidentally noted bilateral pleural effusions. Reading Location: [facility] Physical Exam Const alert and no apparent distress Constitutional Narrative: weak. cachectic. afebrile. on room air. HEENT head/scalp atraumatic and moist oral mucous membranes Resp normal respiratory effort, no retractions, no use of accessory muscles and clear to auscultation bilaterally Cardio regular rate, regular rhythm, S1 normal heart sound and S2 normal heart sound GI normal to inspection, nondistended, normoactive bowel sounds, soft to palpation, non-tender and non-distended Extremity full ROM Extremity Narrative: non-pitting in upper and lower extremities. Neuro Sensorium / Orientation: awake and alert Assessment & Plan Assessment/Plan (1) Sepsis: (2) Acute kidney injury: (3) Metabolic acidosis: (4) Lactic acidosis: (5) Abnormal urinalysis: (6) Generalized weakness: (7) Edema: PLAN: Plan Sepsis 2/2 POA. With STEVEN on CKD stage 4 (baseline sCr 2.2-2.4) and 3.17 on admission, lactic acidosis, metabolic acidosis (HCO3 15.8), UA equivocol for UTI, Abnormal CXR, but may scarring--cannot rule out pneumonia at this time. abx with CTX, add azithromycin. follow up cultures. Check antigens for strep and legionella, sputum culture. Lactic acidosis resolved. Likely 2/2 above. No additional work up at this time. Non-Anion Gap Metabolic Acidosis ABG consistent w compensated metabolic acidosis. Complicated by STEVEN/CKD. Bicab still low. received amp of bicarb on 02/08. Will start PO Bicarb. STEVEN on CKD stage 4 3.17 on presentation. Baseline around 2.24. Improved today at 2.92. monitor. renal US on 04/15 showed bilateral renal cysts and complex cyst on left kidney. recheck US Severe protein calorie malnutrition gaunt appearance with cachexia and dependent edema. nutrition consult ensure plus QAC. Debility: 2/2 to above in patient with advanced age and multiple medical comorbidities PT/OT eval and treat Cannot rule out need for SNF when medically ready for discharge. Chronic bilateral lower extremity edema Patient with previous Dopplers unremarkable echo shows an EF 55% with severe biatrial dilation, RVSP 51 mmHg, small pericardial effusion. Chronic medical conditions Essential HTN-hold home meds for now and reintroduce and BP permits Chronic anemia- Mild- CBC is relatively stable however I do expect drop in hemoglobin to IV fluids with sepsis protocol- Repeat CBC in a.m. pafib- Continue apixaban- Hold beta-zuleyka for now as blood pressure was on the low side on presentation BPH with obstruction with prostatomegaly: tamsulosin GERD/Hiatal Hernia-continue lansoprazole- History of Winter fundoplication Compression Fractures of the Thoracic Spine-chronic- Continue vitamin D supplementation Vitamin D deficiency- Continue home vitamin D supplementation Stroke-cont asa-Could consider discontinuation of aspirin given history of atrial fibrillation and new recommendations-cont risk factor modification-Continue Eliquis Depression/anxiety- Continue doxepin DVT prophylaxis - Continue home apixaban CODE STATUS: full code. Charges/Coding Visit Charges Inpatient E&M: 69379 Subs Hosp L2
[2025-02-09 07:40] LABS: Anion Gap 12 (5-15); BUN 42 mg/dL (4-19); BUN/Creat Ratio 15.2 RATIO (10-20); Calcium,Total 7.7 mg/dL (7.6-11.0); Carbon Dioxide 15.6 mmol/L (21.0-32.0); Chloride 117 mmol/L (98-108); Estimated Creatinine Clearance 16.15 ml/min (50-250); Glucose 83 mg/dL (70-99); Potassium 3.7 mmol/L (3.3-5.1)
[2025-02-09] MEDS: APIXABAN 2.5 MG TABLET (WCH) PO ×2 (09:27→20:41)
[2025-02-09] MEDS: Aspirin E.C. 81 MG Tablet PO (09:27)
[2025-02-09] MEDS: 0.9% Saline Lock 10 ML Syringe IV ×3 (09:28→21:24)
[2025-02-09] MEDS: Ensure Plus High Protein 120 ML LIQUID PO ×2 (09:28→17:19)
[2025-02-09] MEDS: Azithromycin 500 MG in 0.9% Normal Saline (250mL Bag) 250 ML 250 MG IV (09:31)
--- NOTE | 2025-02-09 12:00 | CASEMGMT ---
Discharge Planning A list of?HH providers including quality and resource use data and consistent with the patient's preferred geographic region, medical needs, and insurance network was created in [employer] Guide.? This list was provided to the RN PAULIE. Flores Prieto, Discharge Planning Asst.
--- NOTE | 2025-02-09 12:19 | CASEMGMT ---
Addendum entered by Rashida Johnson 02/09/25 14:23: Call to pt's son, Norman, to notify him pt is not discharging home today, but do anticipate he will be ready tomorrow. Norman also made aware HHC has been set up with [facility]. He voices appreciation. Addendum entered by Rashida Johnson 02/09/25 12:38: Call to Bridgette @ [facility] and referral made. She called back and states they are able to accept pt. If pt is discharged home today, they can do SOC tomorrow, if PCP, Dr Gary, is willing to follow for HHC. Pt made aware. Original Note: RN CM NOTE: Per RN, pt's son called and requesting HHC for pt. RN CM to room. Pt sitting up in chair. Introduced self and role. Pt made aware that his son is requesting HHC and pt is agreeable to this. He states he has been weaker than usual and does not think he will be able to get out of his home easily for awhile. He is aware therapy is recommending use of walker until he gets stronger and verifies he does have a walker @ home. He also confirms he does feel safe returning home alone but will need some assistance getting up the stairs into his home. He does not want to go to a SNF. List of C agencies that was prepared by lanie Tanner sales support assistant, provided to pt. He states wants to go with the highest star-rating, stating [facility], [facility]. Lilly HADDAD RN CM
--- NOTE | 2025-02-09 14:39 | CHAPLAIN ---
Type of Pastoral Visit _x__ Initial Visit ___ Follow-up Visit ___ On-call Visit ___ General Patient Visit ___ Spiritual Assessment ___ Family Conference ___ Bereavement ___ Rapid Response ___ Code Blue ___ Other (describe below) Pastoral Care Referral From _x__ Patient ___ Family ___ Nurse ___ Physician ___ Airport Clerk ___ Stained Glass Joiner ___ Other (describe below) Sacrament/Intervention _x__ Active listening ___ Anointing ___ Pentecostalism ___ Bereavement ___ Communion _x__ Fidelia exploration ___ _x__ Life review _x__ Prayer ___ Reconciliation ___ Sacrament of Sick _x__ Supportive presence ___ Wedding ___ Other (describe below) Pastoral Comments patient gives details on how he was admitted and what his situation has been; pt lives alone and hopes to return there; 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
[2025-02-09] MEDS: Senna/Docusate Sodium 1 Tablet 2 TABLET PO (17:19)
--- NOTE | 2025-02-09 17:57 | CT_ITS ---
PROCEDURE: CT/Brain/Head without Contrast
--- NOTE | 2025-02-09 18:00 | RAD_ITS ---
PROCEDURE: RAD/Cerv Spine 2 or 3 Views
[2025-02-09] MEDS: MENTHOL 226.8 GM JAR 1 APPLIC TOPICAL (18:20)
[2025-02-09] MEDS: MELATONIN 10 MG TABLET PO (20:41)
[2025-02-10 04:00] VITALS: BP 153/99; PULSE 62; RESP 18; TEMP 36.5; O2SAT 99
[2025-02-10 05:06] LABS: Anion Gap 12 (5-15); BUN 47 mg/dL (4-19); BUN/Creat Ratio 17.0 RATIO (10-20); Calcium,Total 7.6 mg/dL (7.6-11.0); Carbon Dioxide 12.3 mmol/L (21.0-32.0); Chloride 115 mmol/L (98-108); Estimated Creatinine Clearance 16.09 ml/min (50-250); Glucose 83 mg/dL (70-99); Potassium 3.8 mmol/L (3.3-5.1)
[2025-02-10 05:55] VITALS: BMI 19.8
[2025-02-10 07:11] LABS: Hematocrit 26.1 % (40-54); Hemoglobin 8.6 g/dL (13.0-16.5); Immature Granulocytes Count 0.020 X10^3/uL (0.0-0.0); Mean Corp Hgb Conc 33.0 g/dL (32-36); Mean Corpuscular Volume 93.9 fL (80-94); Mean Platelet Vol. 11.1 fl (6.2-12.0); NRBC Flagged by Analyzer 0 % (0-5); Platelet Count 185 K/mm3 (150-450); RBC Distribution Width CV 14.8 % (11.6-14.6); RBC Distribution Width SD 51.6 fl (35.1-43.9); Red Blood Count 2.78 M/mm3 (4.6-6.2); White Blood Count 4.0 K/mm3 (4.4-11.0)
--- NOTE | 2025-02-10 07:37 | PN.HOSP_ITS ---
Reason for Visit
--- NOTE | 2025-02-10 07:37 | PCM.PN.HOSP ---
Reason for Visit Chief Complaint: Fatigue/Generalized weakness Subjective Subjective Anxious to go home. Denies shortness of breath. Objective Data Objective Data Vital Signs: Vital Signs Temp Pulse Resp BP Pulse Ox O2 Del Method 36.5 C L 62 18 153/99 H 99 Room Air 02/10/25 04:00 02/10/25 04:00 02/10/25 04:00 02/10/25 04:00 02/10/25 04:00 02/10/25 04:00 Oxygen Delivery Method Room Air Weight: 62.8 kg Body Mass Index (BMI) 19.8 Intake & Output: Intake and Output for Last 24 Hours 02/08/25 02/09/25 02/10/25 23:59 23:59 23:59 Intake Total 4570.00 / 4570.00 740 / 740 Output Total 450 / 900 1200 / 1200 Balance 4120.00 / 3670.00 -460 / -460 Lab / Micro Data 02/10/25 06:49 02/10/25 04:36 Labs: Laboratory Results - last 24 hr 02/09/25 06:09: Sodium 145, Potassium 3.7, Chloride 117 H, Carbon Dioxide 15.6 L, Anion Gap 12, BUN 42 H, Creatinine 2.78 H, Estim Creat Clear Calc 16.15 L, Est GFR (MDRD) Non-Af 21 L, BUN/Creatinine Ratio 15.2, Glucose 83, Calcium 7.7 02/10/25 04:36: WBC Cancelled, Corrected WBC Cancelled, RBC Cancelled, Hgb Cancelled, Hct Cancelled, MCV Cancelled, MCH Cancelled, MCHC Cancelled, RDW Std Deviation Cancelled, RDW Coeff of Fitz Cancelled, Plt Count Cancelled, MPV Cancelled, Immature Gran % (Auto) Cancelled, Neut % (Auto) Cancelled, Lymph % (Auto) Cancelled, Sampson % (Auto) Cancelled, Eos % (Auto) Cancelled, Baso % (Auto) Cancelled, Absolute Neuts (auto) Cancelled, Absolute Lymphs (auto) Cancelled, Total Counted Cancelled, Neutrophils % (Manual) Cancelled, Band Neutrophils % Cancelled, Lymphocytes % (Manual) Cancelled, Monocytes % (Manual) Cancelled, Eosinophils % (Manual) Cancelled, Basophils % (Manual) Cancelled, Metamyelocytes % Cancelled, Myelocytes % Cancelled, Promyelocytes % Cancelled, Blast Cells % Cancelled, Plasma Cell % (Manual) Cancelled, Other Cells % Cancelled, Nucleated RBC % Cancelled, Nucleated RBCs/100 WBC Cancelled, Differential Comment Cancelled, Diff Path Review Cancelled, Hypersegmented Neuts Cancelled, Atypical Lymphocytes Cancelled, Reactive Lymphocytes Cancelled, Smudge Cells Cancelled, Toxic Granulation Cancelled, Toxic Vacuolation Cancelled, Dohle Bodies Cancelled, Amina Rods Cancelled, Platelet Estimate Cancelled, Plt Morphology Comment Cancelled, RBC Morphology Cancelled 02/10/25 04:36: RBC Morphology Cancelled, Polychromasia Cancelled, Hypochromasia Cancelled, Basophilic Stippling Cancelled, Anisocytosis Cancelled, Microcytosis Cancelled, Macrocytosis Cancelled, Spherocytes Cancelled, Sickle Cells Cancelled, Target Cells Cancelled, Tear Drop Cells Cancelled, Ovalocytes Cancelled, Stomatocytes Cancelled, [place] Bodies Cancelled, [place] Cells Cancelled, Bite Cells Cancelled, Crenated Cell Cancelled, Acanthocytes (Spur) Cancelled, Rouleaux Cancelled, Schistocytes Cancelled, Sodium 139, Potassium 3.8, Chloride 115 H, Carbon Dioxide 12.3 L, Anion Gap 12, BUN 47 H, Creatinine 2.79 H, Estim Creat Clear Calc 16.09 L, Est GFR (MDRD) Non-Af 21 L, BUN/Creatinine Ratio 17.0, Glucose 83, Calcium 7.6 02/10/25 06:49: WBC 4.0 L, RBC 2.78 L, Hgb 8.6 L, Hct 26.1 L, MCV 93.9, MCH 30.9, MCHC 33.0 D, RDW Std Deviation 51.6 H, RDW Coeff of Fitz 14.8 H, Plt Count 185, MPV 11.1, Immature Gran % (Auto) 0.500, Neut % (Auto) 65.0, Lymph % (Auto) 21.6, Sampson % (Auto) 8.2, Eos % (Auto) 3.5, Baso % (Auto) 1.2 H, Absolute Neuts (auto) 2.6, Absolute Lymphs (auto) 0.87, Nucleated RBC % 0 Micro: Microbiology 02/07/25 19:37 Blood Culture (Wb) - Anticubital Left Blood Culture - Preliminary No growth in 48 hours. 02/07/25 19:48 Blood Culture (Wb) - Anticubital Left Blood Culture - Preliminary No growth in 48 hours. 02/07/25 22:00 Urine, Random Legionella Antigen - Final 02/07/25 22:00 Urine, Random Streptococcus pneumoniae Antigen (M - Final 02/07/25 22:00 Urine, Clean Catch Urine Culture - Preliminary GNR lactose animal care service worker GNR lactose animal care service worker#2 Mixed Gram Positive Organisms 02/07/25 21:01 Mucosa - Nose SARS-CoV-2, Influenza & RSV (PCR) - Final Radiography Diagnostic Testing: Radiology Impression Brain CT 02/09/25 17:57 IMPRESSION: 1. No acute intracranial abnormality. 2. Mild-moderate parenchymal volume loss and chronic microangiopathic changes. 3. Encephalomalacia/gliosis along the inferomedial right temporal lobe is more conspicuous from prior exam and may reflect an area of interval progressed subacute-chronic infarct. 4. Stable appearing densely calcified presumed meningioma at the high right frontal convexity. Reading Location: [facility] Cervical Spine X-Ray 02/09/25 18:00 IMPRESSION: No evidence of acute fracture or subluxation. Moderate spondylotic changes. Reading Location: [facility] Physical Exam Const alert Constitutional Narrative: up in bed, eating breakfast. HEENT head/scalp atraumatic and moist oral mucous membranes Resp normal respiratory effort, no retractions, no use of accessory muscles and clear to auscultation bilaterally Cardio regular rate, regular rhythm, S1 normal heart sound and S2 normal heart sound GI normal to inspection, nondistended, normoactive bowel sounds, soft to palpation and non-tender Extremity full ROM Extremity Narrative: Slight edema in upper extremities as well as distal lower extremities. Neuro Sensorium / Orientation: awake, alert, oriented to person and oriented to place Psych affect normal Assessment & Plan Assessment/Plan (1) Sepsis: (2) Acute kidney injury: (3) Metabolic acidosis: (4) Lactic acidosis: (5) Abnormal urinalysis: (6) Generalized weakness: (7) Edema: PLAN: Plan Sepsis 2/2 POA. Resolved With STEVEN on CKD stage 4 (baseline sCr 2.2-2.4) and 3.17 on admission, lactic acidosis, metabolic acidosis (HCO3 15.8), UA equivocol for UTI, UCx thus far showing low CFUs; therefore, not supporting a UTI. Abnormal CXR, but may scarring--cannot rule out pneumonia at this time. abx with CTX, add azithromycin. follow up cultures. Check antigens for strep and legionella, sputum culture. Lactic acidosis resolved. Likely 2/2 above. No additional work up at this time. Non-Anion Gap Metabolic Acidosis ABG consistent w compensated metabolic acidosis. Complicated by STEVEN/CKD. Bicab still low. received amp of bicarb on 02/08. Started PO Bicarb. Despite that, CO2, still low. Recheck ABG shows a pH 7.37, Bicarb 16.6, pCO2 28.6, p O2 69, consistent with respiratory alkalosis, chronic. Not overly tachypneic on vitals, nor clinically. Will place on oxygen though his pulse ox is ok to see that may slow his respiratory rate. If that is ineffective, then could consider low dose benzo. STEVEN on CKD stage 4 3.17 on presentation. Baseline around 2.24. Improved today at 2.92. monitor. renal US on 04/15 showed bilateral renal cysts and complex cyst on left kidney. recheck US Severe protein calorie malnutrition gaunt appearance with cachexia and dependent edema. nutrition consult ensure plus QAC. Debility: 2/2 to above in patient with advanced age and multiple medical comorbidities PT/OT eval and treat Cannot rule out need for SNF when medically ready for discharge. Chronic bilateral lower extremity edema Patient with previous Dopplers unremarkable echo shows an EF 55% with severe biatrial dilation, RVSP 51 mmHg, small pericardial effusion. Headaches ongoing since a fall he had previously. (long before this admission) in which he was hold his pet, fell backwards, striking his head. head CT showed encephalomalacia/gliosis right temporal lobe possibly reflecting an area of interval progressed subacute/chronic infarct. Calcified presumed meningioma at the high right frontal convexity. Has history of CVA, imaging from 2020 (including MRI) was negative for CVA. Consider MRI brain if headache persists/worsens. C spine negative. Chronic medical conditions Essential HTN-hold home meds for now and reintroduce and BP permits Chronic anemia- Mild- CBC is relatively stable however I do expect drop in hemoglobin to IV fluids with sepsis protocol- Repeat CBC in a.m. pafib- Continue apixaban- Hold beta-zuleyka for now as blood pressure was on the low side on presentation BPH with obstruction with prostatomegaly: tamsulosin GERD/Hiatal Hernia-continue lansoprazole- History of Winter fundoplication Compression Fractures of the Thoracic Spine-chronic- Continue vitamin D supplementation Vitamin D deficiency- Continue home vitamin D supplementation Stroke-cont asa-Could consider discontinuation of aspirin given history of atrial fibrillation and new recommendations-cont risk factor modification-Continue Eliquis Depression/anxiety- Continue doxepin DVT prophylaxis: Continue home apixaban CODE STATUS: full code. Disposition: when medically stable, home with [facility]. Charges/Coding Visit Charges Inpatient E&M: 07498 Subs Hosp L2
[2025-02-10 08:17] LABS: Base Excess -9 mmol/L (-2 to +2); PO2 69 mmHG (75-100); SITE R Radial; SO2 94 % (94-98)
[2025-02-10] MEDS: Azithromycin 500 MG in 0.9% Normal Saline (250mL Bag) 250 ML 250 MG IV (09:57)
[2025-02-10 09:59] VITALS: BP 135/108; PULSE 73; RESP 15; TEMP 36.6; O2SAT 100
[2025-02-10] MEDS: APIXABAN 2.5 MG TABLET (WCH) PO ×2 (10:01→20:38)
[2025-02-10] MEDS: Aspirin E.C. 81 MG Tablet PO (10:02)
[2025-02-10] MEDS: Senna/Docusate Sodium 1 Tablet 2 TABLET PO (10:43)
[2025-02-10 14:29] VITALS: BP 144/102; PULSE 71; RESP 21; TEMP 36.6; O2SAT 100
[2025-02-10] MEDS: MENTHOL 226.8 GM JAR 1 APPLIC TOPICAL (14:42)
--- NOTE | 2025-02-10 14:51 | CASEMGMT ---
Social Work SW provided the patient with a list of food delivery options and food pantries in the area. ANKUR Lynne
[2025-02-10] MEDS: MELATONIN 10 MG TABLET PO (20:39)
[2025-02-10 21:00] VITALS: BP 132/87; PULSE 67; RESP 18; TEMP 36.2; O2SAT 100
[2025-02-11 03:02] VITALS: BP 139/90; PULSE 49; RESP 16; TEMP 36.3; O2SAT 100
[2025-02-11 04:37] LABS: Hematocrit 25.5 % (40-54); Hemoglobin 8.0 g/dL (13.0-16.5); Immature Granulocytes Count 0.020 X10^3/uL (0.0-0.0); Mean Corp Hgb Conc 31.4 g/dL (32-36); Mean Corpuscular Volume 96.2 fL (80-94); Mean Platelet Vol. 11.5 fl (6.2-12.0); NRBC Flagged by Analyzer 0 % (0-5); Platelet Count 202 K/mm3 (150-450); RBC Distribution Width CV 14.6 % (11.6-14.6); RBC Distribution Width SD 51.5 fl (35.1-43.9); Red Blood Count 2.65 M/mm3 (4.6-6.2); White Blood Count 3.7 K/mm3 (4.4-11.0)
[2025-02-11 05:08] LABS: Anion Gap 11 (5-15); BUN 48 mg/dL (4-19); BUN/Creat Ratio 16.8 RATIO (10-20); Calcium,Total 7.7 mg/dL (7.6-11.0); Carbon Dioxide 15.8 mmol/L (21.0-32.0); Chloride 115 mmol/L (98-108); Estimated Creatinine Clearance 16.33 ml/min (50-250); Glucose 94 mg/dL (70-99); Potassium 3.8 mmol/L (3.3-5.1)
[2025-02-11 08:46] VITALS: BP 139/109; PULSE 73; RESP 18; TEMP 36.6; O2SAT 100
[2025-02-11] MEDS: Aspirin E.C. 81 MG Tablet PO (08:49)
[2025-02-11] MEDS: APIXABAN 2.5 MG TABLET (WCH) PO (08:49)
[2025-02-11] MEDS: Ensure Plus High Protein 120 ML LIQUID PO (08:52)
[2025-02-11 08:55] VITALS: O2SAT 100
--- NOTE | 2025-02-11 09:49 | PN.HOSP_ITS ---
Reason for Visit
--- NOTE | 2025-02-11 09:49 | PCM.PN.HOSP ---
Reason for Visit Chief Complaint: Fatigue/Generalized weakness Subjective Subjective Feeling well. No issues overnight. Eating well. Objective Data Objective Data Vital Signs: Vital Signs Temp Pulse Resp BP Pulse Ox O2 Del Method O2 Flow Rate 36.6 C 73 18 139/109 H 100 Nasal Cannula 2 02/11/25 08:46 02/11/25 08:46 02/11/25 08:46 02/11/25 08:46 02/11/25 08:55 02/11/25 08:55 02/11/25 08:55 Oxygen Flow Rate (L/min) 2 Oxygen Delivery Method Nasal Cannula Weight: 62.8 kg Body Mass Index (BMI) 19.8 Intake & Output: Intake and Output for Last 24 Hours 02/09/25 02/10/25 02/11/25 23:59 23:59 23:59 Intake Total 740 / 740 650 / 900 450 / 450 Output Total 1200 / 1200 300 / 300 450 / 450 Balance -460 / -460 350 / 600 0 / 0 Lab / Micro Data 02/11/25 03:54 02/11/25 03:54 Labs: Laboratory Results - last 24 hr 02/11/25 03:54: WBC 3.7 L, RBC 2.65 L, Hgb 8.0 L, Hct 25.5 L, MCV 96.2 H, MCH 30.2, MCHC 31.4 L, RDW Std Deviation 51.5 H, RDW Coeff of Fitz 14.6, Plt Count 202, MPV 11.5, Immature Gran % (Auto) 0.500, Neut % (Auto) 60.0, Lymph % (Auto) 24.7, Snyder % (Auto) 9.9, Eos % (Auto) 3.3, Baso % (Auto) 1.6 H, Absolute Neuts (auto) 2.2, Absolute Lymphs (auto) 0.90, Nucleated RBC % 0, Sodium 142, Potassium 3.8, Chloride 115 H, Carbon Dioxide 15.8 L, Anion Gap 11, BUN 48 H, Creatinine 2.83 H, Estim Creat Clear Calc 16.33 L, Est GFR (MDRD) Non-Af 21 L, BUN/Creatinine Ratio 16.8, Glucose 94, Calcium 7.7 Micro: Microbiology 02/07/25 22:00 Urine, Clean Catch Urine Culture - Final GNR lactose airplane navigator GNR lactose airplane navigator#2 Mixed Gram Positive Organisms 02/07/25 19:37 Blood Culture (Wb) - Anticubital Left Blood Culture - Preliminary No growth in 48 hours. 02/07/25 19:48 Blood Culture (Wb) - Anticubital Left Blood Culture - Preliminary No growth in 48 hours. 02/07/25 22:00 Urine, Random Legionella Antigen - Final 02/07/25 22:00 Urine, Random Streptococcus pneumoniae Antigen (M - Final 02/07/25 21:01 Mucosa - Nose SARS-CoV-2, Influenza & RSV (PCR) - Final Physical Exam Const alert and no apparent distress HEENT head/scalp atraumatic and moist oral mucous membranes Resp normal respiratory effort and no retractions Cardio regular rate, regular rhythm, S1 normal heart sound and S2 normal heart sound GI normal to inspection, nondistended, normoactive bowel sounds, soft to palpation, non-tender and non-distended Extremity Extremity Narrative: 2+ LE edema Neuro Sensorium / Orientation: awake and alert Assessment & Plan Assessment/Plan (1) Sepsis: (2) Acute kidney injury: (3) Metabolic acidosis: (4) Lactic acidosis: (5) Abnormal urinalysis: (6) Generalized weakness: (7) Edema: PLAN: Plan Sepsis 2/2 POA. Resolved. With STEVEN on CKD stage 4 (baseline sCr 2.2-2.4) and 3.17 on admission, lactic acidosis, metabolic acidosis (HCO3 15.8), UA equivocol for UTI, UCx thus far showing low CFUs; therefore, not supporting a UTI. Abnormal CXR, but may scarring--cannot rule out pneumonia at this time. abx with CTX, add azithromycin. follow up cultures. Strep and legionella antigens negative. Will DC with augmentin Lactic acidosis resolved. Likely 2/2 above. No additional work up at this time. Non-Anion Gap Metabolic Acidosis ABG consistent w compensated metabolic acidosis. Complicated by STEVEN/CKD. Bicab still low. received amp of bicarb on 02/08. Started PO Bicarb. Despite that, CO2, still low. Recheck ABG shows a pH 7.37, Bicarb 16.6, pCO2 28.6, p O2 69, consistent with respiratory alkalosis, chronic. Not overly tachypneic on vitals, nor clinically. Will place on oxygen though his pulse ox is ok to see that may slow his respiratory rate. 02/11: So far, seems to be effective with oxygen. Will continue and monitor. No need for low-dose benzos at this time. Also, continue HCO3 tabs. STEVEN on CKD stage 4 Improving 3.17 on presentation. Baseline around 2.24. monitor. renal US on 04/15 showed bilateral renal cysts and complex cyst on left kidney. Kidney US shows no hydronephrosis. Cysts bilateral kidneys. Prostatomegaly. Severe protein calorie malnutrition gaunt appearance with cachexia and dependent edema and pleural effusions and free fluid in Cooper's pouch nutrition consult ensure plus QAC. Debility: 2/ to above in patient with advanced age and multiple medical comorbidities PT/OT eval and treat Cannot rule out need for SNF when medically ready for discharge. Chronic bilateral lower extremity edema Patient with previous Dopplers unremarkable echo shows an EF 55% with severe biatrial dilation, RVSP 51 mmHg, small pericardial effusion. Headaches ongoing since a fall he had previously. (long before this admission) in which he was hold his pet, fell backwards, striking his head. head CT showed encephalomalacia/gliosis right temporal lobe possibly reflecting an area of interval progressed subacute/chronic infarct. Calcified presumed meningioma at the high right frontal convexity. Has history of CVA, imaging from 2020 (including MRI) was negative for CVA. Consider MRI brain if headache persists/worsens. C spine negative. LE edema: he has more generalized edema which may be nutritional, but he does take amlodipine. Start a low-dose loop diuretic with close outpt follow up . Chronic medical conditions Essential HTN-hold home meds for now and reintroduce and BP permits Chronic anemia- Mild- CBC is relatively stable however I do expect drop in hemoglobin to IV fluids with sepsis protocol- Repeat CBC in a.m. pafib- Continue apixaban- Hold beta-zuleyka for now as blood pressure was on the low side on presentation BPH with obstruction with prostatomegaly: tamsulosin GERD/Hiatal Hernia-continue lansoprazole- History of Winter fundoplication Compression Fractures of the Thoracic Spine-chronic- Continue vitamin D supplementation Vitamin D deficiency- Continue home vitamin D supplementation Stroke-cont asa-Could consider discontinuation of aspirin given history of atrial fibrillation and new recommendations-cont risk factor modification-Continue Eliquis Depression/anxiety- Continue doxepin DVT prophylaxis: Continue home apixaban CODE STATUS: full code. Disposition: when medically stable, home with [facility]. I did offer the patient and his son the opportunity to stay another day, but the patient declined.
[2025-02-11] MEDS: Azithromycin 500 MG in 0.9% Normal Saline (250mL Bag) 250 ML 250 MG IV (10:36)
[2025-02-11 13:38] VITALS: BP 133/98; PULSE 53; RESP 20; TEMP 36.6; O2SAT 100
--- NOTE | 2025-02-11 14:14 | PCM.DC.SUM ---
Providers Date of Admission: 02/07/25 Primary Care Physician: Dr. Kieran Gary MD Reason For Visit: SEPSIS 2/2 UTI Diagnosis Discharge Diagnosis (1) Sepsis: Status: Acute Code(s): A41.9 - Sepsis, unspecified organism (2) Acute kidney injury: Status: Acute Code(s): N17.9 - Acute kidney failure, unspecified (3) Metabolic acidosis: Status: Acute Code(s): E87.20 - Acidosis, unspecified (4) Lactic acidosis: Status: Acute Code(s): E87.20 - Acidosis, unspecified (5) Abnormal urinalysis: Status: Acute Code(s): R82.90 - Unspecified abnormal findings in urine (6) Generalized weakness: Status: Acute Code(s): R53.1 - Weakness (7) Edema: Status: Acute Code(s): R60.9 - Edema, unspecified Plan Sepsis 2/2 POA. Resolved. With STEVEN on CKD stage 4 (baseline sCr 2.2-2.4) and 3.17 on admission, lactic acidosis, metabolic acidosis (HCO3 15.8), UA equivocol for UTI, UCx thus far showing low CFUs; therefore, not supporting a UTI. Abnormal CXR, but may scarring--cannot rule out pneumonia at this time. abx with CTX, add azithromycin. follow up cultures. Strep and legionella antigens negative. Will DC with augmentin Lactic acidosis resolved. Likely 2/2 above. No additional work up at this time. Non-Anion Gap Metabolic Acidosis ABG consistent w compensated metabolic acidosis. Complicated by STEVEN/CKD. Bicab still low. received amp of bicarb on 02/08. Started PO Bicarb. Despite that, CO2, still low. Recheck ABG shows a pH 7.37, Bicarb 16.6, pCO2 28.6, p O2 69, consistent with respiratory alkalosis, chronic. Not overly tachypneic on vitals, nor clinically. Will place on oxygen though his pulse ox is ok to see that may slow his respiratory rate. 02/11: So far, seems to be effective with oxygen. Will continue and monitor. No need for low-dose benzos at this time. Also, continue HCO3 tabs. STEVEN on CKD stage 4 Improving 3.17 on presentation. Baseline around 2.24. monitor. renal US on 04/15 showed bilateral renal cysts and complex cyst on left kidney. Kidney US shows no hydronephrosis. Cysts bilateral kidneys. Prostatomegaly. Severe protein calorie malnutrition gaunt appearance with cachexia and dependent edema and pleural effusions and free fluid in Cooper's pouch nutrition consult ensure plus QAC. Debility: 2/2 to above in patient with advanced age and multiple medical comorbidities PT/OT eval and treat Cannot rule out need for SNF when medically ready for discharge. Chronic bilateral lower extremity edema Patient with previous Dopplers unremarkable echo shows an EF 55% with severe biatrial dilation, RVSP 51 mmHg, small pericardial effusion. Headaches ongoing since a fall he had previously. (long before this admission) in which he was hold his pet, fell backwards, striking his head. head CT showed encephalomalacia/gliosis right temporal lobe possibly reflecting an area of interval progressed subacute/chronic infarct. Calcified presumed meningioma at the high right frontal convexity. Has history of CVA, imaging from 2020 (including MRI) was negative for CVA. Consider MRI brain if headache persists/worsens. C spine negative. LE edema: he has more generalized edema which may be nutritional, but he does take amlodipine. Start a low-dose loop diuretic with close outpt follow up . Chronic medical conditions Essential HTN-hold home meds for now and reintroduce and BP permits Chronic anemia- Mild- CBC is relatively stable however I do expect drop in hemoglobin to IV fluids with sepsis protocol- Repeat CBC in a.m. pafib- Continue apixaban- Hold beta-zuleyka for now as blood pressure was on the low side on presentation BPH with obstruction with prostatomegaly: tamsulosin GERD/Hiatal Hernia-continue lansoprazole- History of Winter fundoplication Compression Fractures of the Thoracic Spine-chronic- Continue vitamin D supplementation Vitamin D deficiency- Continue home vitamin D supplementation Stroke-cont asa-Could consider discontinuation of aspirin given history of atrial fibrillation and new recommendations-cont risk factor modification-Continue Eliquis Depression/anxiety- Continue doxepin DVT prophylaxis: Continue home apixaban CODE STATUS: full code. Disposition: when medically stable, home with [facility]. I did offer the patient and his son the opportunity to stay another day, but the patient declined. Medications at Discharge Home Medications ergocalciferol (vitamin D2) 1,250 mcg (50,000 unit) capsule (Vitamin D2) 1,250 mcg PO QMONTH Supplement 02/09/21 tamsulosin 0.4 mg capsule 0.4 mg PO BID BPH 02/09/21 apixaban 2.5 mg tablet (Eliquis) 2.5 mg PO BID blood thinner #60 tabs 03/31/24 aspirin 81 mg tablet,delayed release 81 mg PO DAILY Antiplatelet 03/31/24 doxepin 25 mg capsule 25 mg PO QHS Antidepressant 03/31/24 lansoprazole 30 mg capsule,delayed release 30 mg PO DAILY GERD 03/31/24 amoxicillin 875 mg-potassium clavulanate 125 mg tablet 1 tab PO BID #8 tabs 02/11/25 food supplemt, lactose-reduced 0.08 gram-1.5 kcal/mL oral liquid (Ensure Plus High Protein) 120 ml PO TIDCM #60 mL 02/11/25 furosemide 20 mg tablet (Lasix) 20 mg PO DAILY #30 tabs 02/11/25 sodium bicarbonate 650 mg tablet 650 mg PO 2XD #60 tabs 02/11/25 Hospital Course Operations None Procedures 2-D Echocardiogram Summary of Care Provided Hospital Course: Greater than 30 minutes spent on discharge This is an 89-year-old male presents with sepsis. Source is likely pneumonia. Patient was on ceftriaxone and azithromycin. Patient's workup came back unremarkable. Patient did have positive urine culture but the colony-forming units were very low so not felt to actually have a UTI. Patient had issues regards to a metabolic acidosis. ABG was consistent with respiratory alkalosis. Patient actually did have some improvement after being started on bicarbonate tablets as well as supplemental oxygen. Patient does not any oxygen at baseline, however. Patient does have generalized edema likely due to nutrition. He will be on nutritional supplements but also on a loop diuretic. Will discontinue the amlodipine as it is certainly contributing to his lower extremity edema to a certain degree. Weight / BMI Weight Weight: 62.8 kg Body Mass Index (BMI) 19.8 ABG / Lab / Microbiology Data 02/11/25 03:54 02/11/25 03:54 Laboratory: Laboratory Results - last 24 hr 02/11/25 03:54: WBC 3.7 L, RBC 2.65 L, Hgb 8.0 L, Hct 25.5 L, MCV 96.2 H, MCH 30.2, MCHC 31.4 L, RDW Std Deviation 51.5 H, RDW Coeff of Fitz 14.6, Plt Count 202, MPV 11.5, Immature Gran % (Auto) 0.500, Neut % (Auto) 60.0, Lymph % (Auto) 24.7, [place] % (Auto) 9.9, Eos % (Auto) 3.3, Baso % (Auto) 1.6 H, Absolute Neuts (auto) 2.2, Absolute Lymphs (auto) 0.90, Nucleated RBC % 0, Sodium 142, Potassium 3.8, Chloride 115 H, Carbon Dioxide 15.8 L, Anion Gap 11, BUN 48 H, Creatinine 2.83 H, Estim Creat Clear Calc 16.33 L, Est GFR (MDRD) Non-Af 21 L, BUN/Creatinine Ratio 16.8, Glucose 94, Calcium 7.7 Microbiology: Microbiology 02/07/25 22:00 Urine, Clean Catch Urine Culture - Final GNR lactose hospitality team member GNR lactose hospitality team member#2 Mixed Gram Positive Organisms 02/07/25 19:37 Blood Culture (Wb) - Anticubital Left Blood Culture - Preliminary No growth in 48 hours. 02/07/25 19:48 Blood Culture (Wb) - Anticubital Left Blood Culture - Preliminary No growth in 48 hours. 02/07/25 22:00 Urine, Random Legionella Antigen - Final 02/07/25 22:00 Urine, Random Streptococcus pneumoniae Antigen (M - Final 02/07/25 21:01 Mucosa - Nose SARS-CoV-2, Influenza & RSV (PCR) - Final D/C Instructions DC O2, CPAP, BIPAP Needs Home O2 Discharge instructions: No Meaningful Use Info Meaningful Use Meaningful Use Diagnoses (Choose all that apply): None applicable Discharge Plan Admission Admit Date/Time: 02/07/25 23:25 Primary Reason for Your Visit: pneumonia Attending Provider: Michael Azevedo Primary Care Provider: Kieran Gary Chi Consulting Providers: Romi Lora Instructions Additional Instructions / Restrictions: Please follow-up with your primary care doctor to have some lab work in the next week or 2. Annual Esteban supplements to help with your nutritional status. Discharge Orders/Prescriptions Prescriptions: New sodium bicarbonate 650 mg Tablet 650 mg PO 2XD Qty: 60 0RF Ensure Plus High Protein 0.08 gram-1.5 kcal/mL Liquid 120 ml PO TIDCM Qty: 60 0RF amoxicillin-pot clavulanate 875-125 mg tablet 1 tab PO BID Qty: 8 0RF furosemide [Lasix] 20 mg tablet 20 mg PO DAILY Qty: 30 0RF Continued tamsulosin 0.4 mg Capsule 0.4 mg PO BID ergocalciferol (vitamin D2) [Vitamin D2] 1,250 mcg (50,000 unit) Capsule 1,250 mcg PO QMONTH doxepin 25 mg capsule 25 mg PO QHS aspirin 81 mg tablet,delayed release (DR/EC) 81 mg PO DAILY lansoprazole 30 mg capsule,delayed release(DR/EC) 30 mg PO DAILY Eliquis 2.5 mg tablet 2.5 mg PO BID Qty: 60 0RF Discontinued potassium chloride 20 MEQ packet 20 meq PO DAILY Qty: 10 0RF clonidine 0.3 mg/24 hr Patch Weekly 1 patch TRANSDERMAL QWEEK Qty: 0 0RF Patient Comments: Thursday Morning Rx Instructions: Hold for systolic blood pressure less than 130 mmHg metoprolol tartrate 25 mg tablet 25 mg PO BID amlodipine 5 mg tablet 5 mg PO DAILY Referrals / Follow Up: Kieran Gary Chi, MD [Primary Care Provider, Geriatrics] - Within 2 Weeks Disposition Disposition (needs filled in before D/C Order can be placed): Home Health Service Charges/Coding Visit Charges Inpatient E&M: 35933 Disch Hosp >30min
[2025-02-11 14:28] VITALS: O2SAT 100
--- NOTE | 2025-02-11 15:41 | PCA ---
THIS US CALLED [facility] THROUGH THE [employer] AND WAS ABLE TO MAKE THEM AWARE OF THE PATIENTS DISCHARGE TODAY
== END 2025-02-11 16:34 | disposition home health service (06) | DRG 871 ==
LOC: ED 23:34 → PCU 23:59
PROVIDERS: Admitting Provider Internal Medicine; Emergency Provider Emergency Medicine; PCP Family Medicine Geriatric Medicine
DX: A41.9 Sepsis, unspecified organism (principal); E43 Unspecified severe protein-calorie malnutrition; J18.9 Pneumonia, unspecified organism; E87.20 Acidosis, unspecified; N18.4 Chronic kidney disease, stage 4 (severe); N17.9 Acute kidney failure, unspecified; N13.8 Other obstructive and reflux uropathy; Z68.1 Body mass index [BMI] 19.9 or less, adult; E88.A Wasting disease (syndrome) due to underlying condition; I48.0 Paroxysmal atrial fibrillation; I12.9 Hypertensive chronic kidney disease with stage 1 through stage 4 chronic kidney disease, or unspecified chronic kidney disease; F32.A Depression, unspecified; D64.9 Anemia, unspecified; E55.9 Vitamin D deficiency, unspecified; K44.9 Diaphragmatic hernia without obstruction or gangrene; K21.9 Gastro-esophageal reflux disease without esophagitis; F41.9 Anxiety disorder, unspecified; Z79.01 Long term (current) use of anticoagulants; N40.1 Benign prostatic hyperplasia with lower urinary tract symptoms; R53.81 Other malaise; Z86.73 Personal history of transient ischemic attack (TIA), and cerebral infarction without residual deficits; Z79.899 Other long term (current) drug therapy; Z79.82 Long term (current) use of aspirin; Z90.49 Acquired absence of other specified parts of digestive tract; R53.1 Weakness; R60.9 Edema, unspecified; R51.9 Headache, unspecified; R82.90 Unspecified abnormal findings in urine
CPT/HCPCS: 36415; 36600; 70450; 71046; 72040; 76770; 80048; 80053; 81001; 82803; 83605; 83735; 84100; 84443; 85025; 85610; 85730; 87040; 87086; 87088; 87449; 87631; 93005; 93308; 94667; 94760; 97116; 97162; 97166; 97530; 97535; 97802; 99252; 99285; A4216; G0463

== ENCOUNTER → 2025-02-22 | Outpatient (CLI) | payer MEDICARE, SELFPAY ==
[2025-02-22 12:13] LABS: PTHIN 227 pg/mL (11-61)
[2025-02-22 12:15] LABS: Albumin, Serum 3.7 g/dL (3.4-4.8); Anion Gap 12 (5-15); BUN 35 mg/dL (4-19); BUN/Creat Ratio 15.7 RATIO (10-20); Calcium,Total 8.2 mg/dL (7.6-11.0); Carbon Dioxide 24.5 mmol/L (21.0-32.0); Chloride 110 mmol/L (98-108); Glucose 92 mg/dL (70-99); Potassium 4.5 mmol/L (3.3-5.1)
== END | disposition home or self-care (01) ==
LOC: POLAB3 11:26
PROVIDERS: PCP Family Medicine Geriatric Medicine; Visit Provider Family Medicine Geriatric Medicine
DX: N18.32 Chronic kidney disease, stage 3b (principal)
CPT/HCPCS: 36415; 80069; 83970

== ENCOUNTER → 2025-03-07 | Outpatient (CLI) | payer MEDICARE, SELFPAY ==
[2025-03-07 13:14] LABS: Hematocrit 28.6 % (40-54); Hemoglobin 9.1 g/dL (13.0-16.5); Immature Granulocytes Count 0.000 X10^3/uL (0.0-0.0); Mean Corp Hgb Conc 31.8 g/dL (32-36); Mean Corpuscular Volume 95.0 fL (80-94); Mean Platelet Vol. 11.2 fl (6.2-12.0); NRBC Flagged by Analyzer 0 % (0-5); Platelet Count 205 K/mm3 (150-450); RBC Distribution Width CV 13.8 % (11.6-14.6); RBC Distribution Width SD 47.8 fl (35.1-43.9); Red Blood Count 3.01 M/mm3 (4.6-6.2); White Blood Count 4.0 K/mm3 (4.4-11.0)
[2025-03-07 14:22] LABS: Anion Gap 11 (5-15); BUN 50 mg/dL (4-19); BUN/Creat Ratio 17.5 RATIO (10-20); Calcium,Total 7.8 mg/dL (7.6-11.0); Carbon Dioxide 25.1 mmol/L (21.0-32.0); Chloride 109 mmol/L (98-108); Glucose 87 mg/dL (70-99); Potassium 4.3 mmol/L (3.3-5.1)
== END | disposition home or self-care (01) ==
LOC: LAB 12:20
PROVIDERS: PCP Family Medicine Geriatric Medicine; Referring Provider Family Medicine Geriatric Medicine; Visit Provider Family Medicine Geriatric Medicine
DX: E87.20 Acidosis, unspecified (principal)
CPT/HCPCS: 36415; 80048; 85025

== ENCOUNTER → 2025-03-09 | Outpatient (CLI) | payer MEDICARE, SELFPAY ==
[2025-03-09 18:01] LABS: Hematocrit 27.4 % (40-54); Hemoglobin 8.7 g/dL (13.0-16.5); Immature Granulocytes Count 0.010 X10^3/uL (0.0-0.0); Immature Reticulocyte Fraction 16.90 % (3.00-15.90); Mean Corp Hgb Conc 31.8 g/dL (32-36); Mean Corpuscular Volume 94.8 fL (80-94); Mean Platelet Vol. 11.5 fl (6.2-12.0); NRBC Flagged by Analyzer 0 % (0-5); Platelet Count 171 K/mm3 (150-450); RBC Distribution Width CV 13.6 % (11.6-14.6); RBC Distribution Width SD 47.5 fl (35.1-43.9); Red Blood Count 2.89 M/mm3 (4.6-6.2); Reticulocyte Count 0.82 % (0.5-1.5); White Blood Count 3.9 K/mm3 (4.4-11.0)
[2025-03-09 18:33] LABS: FOLATES,SERUM (FOLIC ACID) 7.47 ng/mL (4.60-34.80); Ferritin 21 ng/mL (37-417); Iron 48 ug/dL (65-175); Iron Binding Capacity,Total 349 ug/dL (250-450); Iron Binding Capacity,Unsat 301 ug/dL (228-428); Vitamin B12 387 pg/mL (180-914)
[2025-03-10 00:51] LABS: Xtra Tube Kwok EXTRA TUBE
== END | disposition home or self-care (01) ==
LOC: POLAB3 16:51
PROVIDERS: PCP Family Medicine Geriatric Medicine; Visit Provider Family Medicine Geriatric Medicine
DX: D50.9 Iron deficiency anemia, unspecified (principal)
CPT/HCPCS: 36415; 82607; 82728; 82746; 83540; 83550; 85025; 85045

== ENCOUNTER → 2025-03-13 | Outpatient (CLI) | payer MEDICARE, SELFPAY | END | disposition home or self-care (01) | LOC: LABSPEC 14:37 | PROVIDERS: PCP Family Medicine Geriatric Medicine; Referring Provider Family Medicine Geriatric Medicine; Visit Provider Family Medicine Geriatric Medicine | DX: D64.9 Anemia, unspecified (principal) | CPT/HCPCS: 82274 ==